=== PATIENT | male | born 1990 | race African-American/Black ===

== ENCOUNTER 2016-07-14 07:20 | Inpatient (IN) | payer MEDICAID ==
[2016-07-14] VITALS (10 sets, daily range): BP systolic 98–179; BP diastolic 56–80; PULSE 90–164; RESP 16–20; TEMP 97.8–100.4; O2SAT 95–100
[~2016-07-14] VITALS: Ht 170.2 cm; Wt 70.5 kg
[~2016-07-14 07:20] MED LIST: ALTA5CAP3 GT; ASPI81 CHEW; BACL10TA GT; BISA10SU8 PR; BUDE.5I NEB; CALTTAB GT; CLIN150 GT; DOCU50SY2 GT; GLYC1TAB17 GT; JEVILIQ10 G-TUBE; LEVA500T G-TUBE; LEVE500S GT; MAGN30S PO; POLY99.0 EACH EYE; PROT40TA GT; Z.0.OXYGEN INH
[2016-07-14] MEDS ORDERED: PIPERACIL-TAZO 4.5 GM PREMIX 100 ML IV STA (07:40)
[2016-07-14] MEDS ORDERED: VANCOMYCIN INJ 1,000 MG in SODIUM CHLOR 0.9% 250 ML INJ 250 ML IV STA (07:40)
[2016-07-14] MEDS ORDERED: SODIUM CHLORID 0.9% 500 ML INJ 500 ML IV ONE ×2 (07:45→15:00)
--- NOTE | 2016-07-14 08:00 | PD ---
HPI Chief Complaint: Fever Time Seen by Provider: 07:36 Travel History International Travel<30 days: No Contact w/Intl Traveler<30days: No Traveled to known affect area: No History of Present Illness HPI 25-year-old male from nursing care facility with history of traumatic brain injury previously, nonverbal, contracted, here because facility states that he is having fevers of 102. He is not able to give me any further history. Family is not in the room to give me any further history. Modifying Factors: None Associated Signs & Symptoms: Fevers, patient nonverbal and unable to give further history Risk Factors: Traumatic brain injury history from intermediate PFSH Past Medical History ADHD: Yes Arthritis: No Asthma: No Autoimmune Disease: No Anxiety: No Depression: No Heart Rhythm Problems: No Cancer: No Cardiovascular Problems: No High Cholesterol: No Chemotherapy: No Chest Pain: No Congestive Heart Failure: No COPD: No Cerebrovascular Accident: No Developmental Delay: No Diabetes: No Diminished Hearing: No Endocrine: No Gastrointestinal Disorders: Yes (CONSTIPATION) GERD: Yes Genitourinary: No Hiatal Hernia: No Hypertension: Yes Immune Disorder: No Kidney Stones: No Musculoskeletal: Yes (osteoporosis, muscle spasm ) Neurologic: Yes (convulsions) Psychiatric: No Respiratory: No Immunizations Current: Yes Migraines: No Radiation Therapy: No Renal Failure: No Seizures: Yes Sickle Cell Disease: No Sleep Apnea: No Thyroid Disease: No Ulcer: No Past Surgical History Abdominal Surgery: Yes (PEG PLACEMENT) Appendectomy: No Cardiac Surgery: No Cholecystectomy: No Ear Surgery: No Endocrine Surgery: No Eye Surgery: No Genitourinary Surgery: No Gynecologic Surgery: No Neurologic Surgery: Yes (craniotomy ) Oral Surgery: No Thoracic Surgery: No Other Surgery: Yes (l pinky finger) Social History Alcohol Use: No Tobacco Use: No Substance Use: No Allergies-Medications (Allergen,Severity, Reaction): Coded Allergies: No Known Allergies (Verified , 07/14/16) Reported Meds & Prescriptions Reported Meds & Active Scripts Active Reported Milk of Magnesia Liq (Magnesium Hydroxide) 400 Mg/5 Ml Susp 30 Ml G-TUBE DAILY PRN Caltrate 600+D Soft Chews (Calcium Carbonate-Cholecalciferol) 600-800 Mg-Unit Chew 1 Tab G-TUBE DAILY Dulcolax Supp (Bisacodyl) 10 Mg Supp 10 Mg RECTAL HS PRN Artificial Tears Opth Drops (Polyvinyl Alcohol) 1.4% Soln 1 Drop EACH EYE QID PRN Glycopyrrolate 1 Mg Tab 1 Mg G-TUBE Q8HR [place] (Hydrocodone-Acetaminophen) 10-325 Mg Tab 1 Tab G-TUBE Q4H PRN Aspirin 81 Mg Chew 81 Mg G-TUBE DAILY Polyethylene Glycol 3350 Powder (Polyethylene Glycol) 17 Gm Pow 17 Gm G-TUBE HS Levetiracetam Liq (Levetiracetam) 500 Mg/5 Ml Soln 200 Mg G-TUBE TID Duoneb (Ipratropium-Albuterol Neb) 0.5-2.5 Mg/3 Ml Neb 1 Nebule INH Q4HR NEB Flexeril (Cyclobenzaprine HCl) 10 Mg Tab 10 Mg G-TUBE TID Omeprazole 20 Mg Cap 20 Mg G-TUBE DAILY Review of Systems ROS Limitations: Clinical Condition, Speech Impaired Physical Exam Narrative GENERAL: Nonverbal and contracted young -German male patient not a current distress. Awake, not oriented. SKIN: Focused skin assessment warm/dry. HEAD: Atraumatic. Normocephalic. EYES: Pupils equal and round. No scleral icterus. No injection or drainage. ENT: No nasal bleeding or discharge. Mucous membranes pink and moist. NECK: Trachea midline. No JVD. CARDIOVASCULAR: Fast and regular rhythm. No murmur appreciated. RESPIRATORY: No accessory muscle use. Clear to auscultation. Breath sounds equal bilaterally. GASTROINTESTINAL: Abdomen soft, non-tender, nondistended. Hepatic and splenic margins not palpable. MUSCULOSKELETAL: No obvious deformities. No clubbing. No cyanosis. No edema. NEUROLOGICAL: Awake and nonverbal. Contracted. Unable to follow commands, exam limited. PSYCHIATRIC: Nonverbal, unable to therapeutic sales specialist or have insight on process. Data Data Last Documented VS Vital Signs Date Time Temp Pulse Resp B/P Pulse Ox O2 Delivery O2 Flow Rate FiO2 07/14/16 07:41 20 97 Room Air 07/14/16 07:41 2 07/14/16 07:34 162 07/14/16 07:30 100.4 179/80 Orders Electrocardiogram (07/14/16 ) Complete Blood Count With Diff (07/14/16 07:37) Comprehensive Metabolic Panel (07/14/16 07:37) Lactic Acid Sepsis Protocol (07/14/16 07:37) Urinalysis - C+S If Indicated (07/14/16 07:37) Blood Culture (07/14/16 07:37) Chest, Single Ap (07/14/16 07:37) Blood Glucose (07/14/16 07:37) Ecg Monitoring (07/14/16 07:37) Iv Access Insert/Monitor (07/14/16 07:37) Oximetry (07/14/16 07:37) Oxygen Administration (07/14/16 07:37) Vancomycin Inj (Vancomycin Inj) (07/14/16 07:40) Piperacil-Tazo 4.5 Gm Premix (Zosyn 4.5 (07/14/16 07:40) Sodium Chlorid 0.9% 500 Ml Inj (Ns 500 M (07/14/16 07:45) Urinary Catheter Insert/Apply (07/14/16 07:40) Us Abdomen Gallbladder (07/14/16 09:09) Urine Culture (07/14/16 09:10) Influenzae A/B Antigen (07/14/16 10:26) Labs Laboratory Tests Test 07/14/16 07/14/16 08:00 09:10 White Blood Count 6.2 TH/MM3 Red Blood Count 4.73 MIL/MM3 Hemoglobin 15.0 GM/DL Hematocrit 45.0 % Mean Corpuscular Volume 95.1 FL Mean Corpuscular Hemoglobin 31.6 PG Mean Corpuscular Hemoglobin 33.3 % Concent Red Cell Distribution Width 12.5 % Platelet Count 263 TH/MM3 Mean Platelet Volume 9.5 FL Neutrophils (%) (Auto) 49.8 % Lymphocytes (%) (Auto) 37.8 % Monocytes (%) (Auto) 8.8 % Eosinophils (%) (Auto) 3.2 % Basophils (%) (Auto) 0.4 % Neutrophils # (Auto) 3.1 TH/MM3 Lymphocytes # (Auto) 2.3 TH/MM3 Monocytes # (Auto) 0.5 TH/MM3 Eosinophils # (Auto) 0.2 TH/MM3 Basophils # (Auto) 0.0 TH/MM3 CBC Comment DIFF FINAL Differential Comment Sodium Level 144 MEQ/L Potassium Level 5.7 MEQ/L Chloride Level 107 MEQ/L Carbon Dioxide Level 27.0 MEQ/L Anion Gap 10 MEQ/L Blood Urea Nitrogen 14 MG/DL Creatinine 1.10 MG/DL Estimat Glomerular Filtration 100 ML/MIN Rate Random Glucose 85 MG/DL Lactic Acid Level 8.8 mmol/L Calcium Level 10.4 MG/DL Total Bilirubin 0.4 MG/DL Aspartate Amino Transf 114 U/L (AST/SGOT) Alanine Aminotransferase 215 U/L (ALT/SGPT) Alkaline Phosphatase 167 U/L Total Protein 9.2 GM/DL Albumin 4.0 GM/DL Urine Color YELLOW Urine Turbidity HAZY Urine pH 5.5 Urine Specific [place] 1.036 Urine Protein 30 mg/dL Urine Glucose (UA) NEG mg/dL Urine Ketones TRACE mg/dL Urine Occult Blood MOD Urine Nitrite NEG Urine Bilirubin NEG Urine Urobilinogen 2.0 MG/DL Urine Leukocyte Esterase NEG Urine RBC 94 /hpf Urine WBC 5 /hpf Urine Squamous Epithelial 4 /hpf Cells Urine Amorphous Sediment OCC Urine Bacteria FEW /hpf Urine Hyaline Casts 10 /lpf Urine Mucus FEW /lpf Microscopic Urinalysis Comment CATH-CULTURE IND MDM Medical Decision Making Medical Screen Exam Complete: Yes Emergency Medical Condition: Yes Medical Record Reviewed: Yes Interpretation(s) Laboratory Tests Test 07/14/16 07/14/16 08:00 09:10 Monocytes (%) (Auto) 8.8 % (0.0-8.0) Potassium Level 5.7 MEQ/L (3.5-5.1) Lactic Acid Level 8.8 mmol/L (0.4-2.0) Calcium Level 10.4 MG/DL (8.5-10.1) Aspartate Amino Transf 114 U/L (15-37) (AST/SGOT) Alanine Aminotransferase 215 U/L (12-78) (ALT/SGPT) Alkaline Phosphatase 167 U/L (45-117) Total Protein 9.2 GM/DL (6.4-8.2) Urine Turbidity HAZY (CLEAR) Urine Specific [place] 1.036 (1.002-1.035) Urine Protein 30 mg/dL (NEG-TRACE) Urine Ketones TRACE mg/dL (NEG) Urine Occult Blood MOD (NEG) Urine RBC 94 /hpf (0-3) Urine Bacteria FEW /hpf (NONE) Urine Mucus FEW /lpf (OCC) Last 24 hours Impressions Gall Bladder Ultrasound 07/14/16 0909 Signed Impressions: Service Date/Time: Thursday, July 14, 2016 09:33 - CONCLUSION: Negative for gallstones. Raman Marshall MD FACR Chest X-Ray 4/1/17 0737 Signed Impressions: Service Date/Time: Thursday, July 14, 2016 07:49 - CONCLUSION: Negative for infiltrate. Raman Marshall MD FACR Abdomen/Pelvis CT 07/14/16 0000 Signed Impressions: Service Date/Time: Thursday, July 14, 2016 15:46 - CONCLUSION: 1. Patchy left lower lung infiltrates. 2. PEG tube in good position. 3. Moderate severity constipation. 4. No evidence of abscess. Jose Velasquez MD Differential Diagnosis Feverevaluation for sepsis versus metabolic issues versus pneumonia versus UTI Narrative Course Laboratories is significant for lactate level elevations, concerning for underlying sepsis. IV antibiotics initiated after cultures are drawn. Patient' s symptoms are consistent with pneumonia. His chest x-ray did not show obvious issues but CAT scanshows a left lower lobe infiltrate. UA not show significant UTI. At this point, case was discussed with Dr. Hugo for admission. Sepsis Criteria SIRS Criteria (2 or more): Heart rate over 90 Sepsis Criteria (SIRS+source): Infect source susp/known Severe Sepsis (+one): Lactate >2 Diagnosis Primary Impression: Sepsis Additional Impression: Pneumonia Admitting Information Admitting Physician Requests: Admit Kajal Yusuf MD Jul 14, 2016 08:00
--- NOTE | 2016-07-14 08:18 | RADRPT ---
EXAM DATE/TIME: 07/14/2016 07:49 [facility] COMPARISON: CT PULMONARY ANGIOGRAM, January 20, 2016, 9:05. CHEST SINGLE AP, January 20, 2016, 8:06. INDICATIONS : Fever. MEDICAL HISTORY : Hypertension. SURGICAL HISTORY : None. ENCOUNTER: Initial ACUITY: 2 days PAIN SCORE: Non-responsive. LOCATION: chest FINDINGS: The lungs are under aerated but clear. The cardiac silhouette is prominent.. The portion of the bony skeleton visualized is unremarkable. CONCLUSION: Negative for infiltrate. Raman Marshall MD FACR on July 14, 2016 at 8:15 Board Certified Radiologist. This report was verified electronically.
[2016-07-14 08:31] LABS: AUTOMATED NEUTROPHIL # 3.1 TH/MM3 (1.8-7.7); BASOPHIL % 0.4 % (0.0-2.0); EOSINOPHIL # 0.2 TH/MM3 (0-0.4); EOSINOPHIL % 3.2 % (0.0-4.0); HEMO FLAGS DIFF FINAL; LYMPH % 37.8 % (9.0-44.0); LYMPHOCYTE # 2.3 TH/MM3 (1.0-4.8); MEAN CELL VOLUME 95.1 FL (80.0-100.0); MEAN CORPUSCULAR HEMOGLOBIN 31.6 PG (27.0-34.0); MEAN CORPUSCULAR HGB CONC 33.3 % (32.0-36.0); MONO % 8.8 % (0.0-8.0); NEUT % 49.8 % (16.0-70.0); PLATELET COUNT 263 TH/MM3 (150-450); RED BLOOD COUNT 4.73 MIL/MM3 (4.50-5.90); RED CELL DISTRIBUTION WIDTH 12.5 % (11.6-17.2); WHITE BLOOD COUNT 6.2 TH/MM3 (4.0-11.0)
[2016-07-14] MEDS ORDERED: ASPI81CH G-TUBE (08:36)
[2016-07-14] MEDS ORDERED: LEVE100S G-TUBE (08:36)
[2016-07-14] MEDS ORDERED: IPRASOL INH (08:36)
[2016-07-14] MEDS ORDERED: CYCL1TAB29 G-TUBE (08:36)
[2016-07-14] MEDS ORDERED: GLYC1TAB17 G-TUBE (08:36)
[2016-07-14] MEDS ORDERED: MILKSUS G-TUBE (08:36)
[2016-07-14] MEDS ORDERED: CALTCHW4 G-TUBE (08:36)
[2016-07-14] MEDS ORDERED: POLY17S G-TUBE (08:36)
[2016-07-14] MEDS ORDERED: POLY99.0 EACH EYE (08:36)
[2016-07-14] MEDS ORDERED: OMEP20CA2 G-TUBE (08:36)
[2016-07-14] MEDS ORDERED: HYDR-3366 G-TUBE (08:36)
[2016-07-14] MEDS ORDERED: DULC10SU3 RECTAL (08:36)
[2016-07-14 08:54] LABS: ALKALINE PHOSPHATASE 167 U/L (45-117); TOTAL BILIRUBIN ADULT 0.4 MG/DL (0.2-1.0)
[2016-07-14 09:07] LABS: ALT (GPT) 215 U/L (12-78); ANION GAP 10 MEQ/L (5-15); AST (GOT) 114 U/L (15-37); BLOOD UREA NITROGEN 14 MG/DL (7-18); CHLORIDE 107 MEQ/L (98-107); GLOMERULAR FILTRATION RATE 100 ML/MIN (>89); SODIUM (NA) 144 MEQ/L (136-145)
[2016-07-14 09:08] LABS: POTASSIUM 5.7 MEQ/L (3.5-5.1)
[2016-07-14 09:32] LABS: BACTERIA, URINE FEW /hpf; BLOOD, URINE MOD (NEG); GLUCOSE,URINE NEG (NEG); HYALINE CAST, URINE 10 /lpf (RARE); KETONE, URINE TRACE mg/dL (NEG); MUCUS URINE FEW /lpf (OCC); NITRITE,URINE NEG (NEG); PH, URINE 5.5 (5.0-8.5); SQUAMOUS EPITHELIAL CELL URINE 4 /hpf (0-5); URINE COLOR YELLOW (YELLW/STRAW)
[2016-07-14 10:02] LABS: COMMENT (UR) CATH-CULTURE IND; CULTURE IF INDICATED CATH CULTURE IND
--- NOTE | 2016-07-14 10:20 | RADRPT ---
EXAM DATE/TIME: 07/14/2016 09:33 [facility] COMPARISON: US ABDOMEN - GALLBLADDER, May 04, 2013, 11:33. INDICATIONS : Right upper quadrant pain. MEDICAL HISTORY : Hypertension. Dyspnea. Seizures. Head trauma. SURGICAL HISTORY : Craniotomy. Surgery on pinky finger. ENCOUNTER: Subsequent ACUITY: 1 day PAIN SCORE: Nonresponsive. LOCATION: Right upper quadrant MEASUREMENTS: LIVER: 11.8 cm length COMMON DUCT: 3 mm RIGHT KIDNEY: 9.7 x 5.0 x 3.7 cm FINDINGS: Exam is limited. I do not see evidence for gallstones. Previous study on 05/04/13 was negative as we ll. CONCLUSION: Negative for gallstones. Raman Marshall MD FACR on July 14, 2016 at 10:18 Board Certified Radiologist. This report was verified electronically.
[2016-07-14 10:22] LABS: LACTIC ACID GHOST NOT REPORTABLE
[2016-07-14] MEDS ORDERED: MORPHINE SULFATE 4 MG/ML INJ IV PRN (11:15)
[2016-07-14] MEDS ORDERED: ACETAMINOPHEN/HYDROcodone 325 MG/5 MG TAB PO PRN (11:15)
[2016-07-14] MEDS ORDERED: SODIUM CHLORIDE 0.9% FLUSH 10 ML FLUSH IV FLUSH PRN (11:15)
[2016-07-14] MEDS ORDERED: ONDANSETRON HCL 4 MG/2 ML VIAL IVP PRN (11:15)
[2016-07-14] MEDS ORDERED: NALOXONE HCL 0.4 MG/ML AMP IV PRN (11:15)
[2016-07-14] MEDS ORDERED: DIATRIZOATE MEGLUM/DIATRIZOATE SOD 9 ML CUP PO ONE (12:00)
[2016-07-14] MEDS: SODIUM CHLOR 0.9% 1000 ML INJ 1,000 ML IV SCH ×2 (12:13→17:22)
[2016-07-14] MEDS: HEPARIN SODIUM - SQ 10,000 UNITS/ML VIAL SQ SCH ×2 (12:13→21:36)
--- NOTE | 2016-07-14 15:05 | HHI.HP ---
HPI Service [facility] Primary Care Physician Marcio Archibald MD Admission Diagnosis sepsis/elevated LFTs Diagnoses: Chief Complaint: Fever Travel History International Travel<30 Days: No Contact w/Intl Traveler <30 Da: No Traveled to Known Affected Are: No History of Present Illness 25 years old male with history of brain injury atraumatic food is a resident at the nursing facility, brought today from the facility with a history of fever 102. Patient is nonverbal he does not provide any history he has upper or lower extremity flexure. He is open eyes. In ED he was found to have a fever of 100.4 and a lactic acidosis of 8.8, as well as increase LFT and alkaline phosphatase, chest x-ray and urinalysis were unremarkable as well as gallbladder ultrasound, no nausea vomiting no diarrhea as per the report to the ED from the nursing facility. She has a PEG tube placed. He was started with a dose of Vanco and Zosyn. Review of Systems ROS Limitations: Clinical Condition (patient has), Poor Historian Constitutional: COMPLAINS OF: Fever Patient has traumatic brain injury Past Family Social History Past Medical History Traumatic brain injury Constipation Osteoporosis PEG tube Allergies: Coded Allergies: No Known Allergies (Verified , 07/14/16) Family History Unobtainable Social History Unobtainable Physical Exam Vital Signs Vital Signs Date Time Temp Pulse Resp B/P Pulse Ox O2 Delivery O2 Flow Rate FiO2 07/14/16 12:25 98.7 07/14/16 12:16 112 20 98/56 99 Nasal Cannula 2 07/14/16 07:41 20 97 Room Air 07/14/16 07:41 99 Nasal Cannula 2 07/14/16 07:34 162 20 95 Room Air 07/14/16 07:30 100.4 164 20 179/80 95 Physical Exam - - GENERAL: This is a frail 25 years old patient with traumatic brain injury and upper lower extremity contractions SKIN: No rashes, warm and dry HEAD: Atraumatic. Normocephalic. EYES: Pupils equal round and reactive. Extraocular motions intact. No scleral icterus. ENT: Nose without bleeding, or drainage, Airway patent. NECK: Trachea midline. Supple CARDIOVASCULAR: Regular rate and rhythm without murmurs, gallops, or rubs. RESPIRATORY: Fair air entry bilaterally. No wheezes, rales, or rhonchi. GASTROINTESTINAL: Abdomen soft, non-tender, nondistended. Positive bowel sounds , PEG tube in place MUSCULOSKELETAL: Extremities without clubbing, cyanosis, or edema. Pedal pulses appreciated NEUROLOGICAL: Open eyes, doesn't move extremities which has tractions, nonverbal Laboratory Laboratory Tests Test 07/14/16 07/14/16 07/14/16 08:00 09:10 12:50 White Blood Count 6.2 Red Blood Count 4.73 Hemoglobin 15.0 Hematocrit 45.0 Mean Corpuscular Volume 95.1 Mean Corpuscular Hemoglobin 31.6 Mean Corpuscular Hemoglobin 33.3 Concent Red Cell Distribution Width 12.5 Platelet Count 263 Mean Platelet Volume 9.5 Neutrophils (%) (Auto) 49.8 Lymphocytes (%) (Auto) 37.8 Monocytes (%) (Auto) 8.8 Eosinophils (%) (Auto) 3.2 Basophils (%) (Auto) 0.4 Neutrophils # (Auto) 3.1 Lymphocytes # (Auto) 2.3 Monocytes # (Auto) 0.5 Eosinophils # (Auto) 0.2 Basophils # (Auto) 0.0 CBC Comment DIFF FINAL Differential Comment Sodium Level 144 Potassium Level 5.7 Chloride Level 107 Carbon Dioxide Level 27.0 Anion Gap 10 Blood Urea Nitrogen 14 Creatinine 1.10 Estimat Glomerular Filtration 100 Rate Random Glucose 85 Lactic Acid Level 8.8 1.6 Calcium Level 10.4 Total Bilirubin 0.4 Aspartate Amino Transf 114 (AST/SGOT) Alanine Aminotransferase 215 (ALT/SGPT) Alkaline Phosphatase 167 Total Protein 9.2 Albumin 4.0 Urine Color YELLOW Urine Turbidity HAZY Urine pH 5.5 Urine Specific [place] 1.036 Urine Protein 30 Urine Glucose (UA) NEG Urine Ketones TRACE Urine Occult Blood MOD Urine Nitrite NEG Urine Bilirubin NEG Urine Urobilinogen 2.0 Urine Leukocyte Esterase NEG Urine RBC 94 Urine WBC 5 Urine Squamous Epithelial 4 Cells Urine Amorphous Sediment OCC Urine Bacteria FEW Urine Hyaline Casts 10 Urine Mucus FEW Microscopic Urinalysis Comment CATH-CULTURE IND Date/Time Procedure Status Source Growth 07/14/16 10:35 Influenza Types A,B Antigen (NASRA) - Final Complete Nasal Washing NEGATIVE FOR FLU A AND B ANTIGEN.... 4/1/17 09:10 Urine Culture Received Urine Catheterized Urine Pending 07/14/16 08:00 Aerobic Blood Culture Received Blood Peripheral Pending 07/14/16 08:00 Anaerobic Blood Culture Received Blood Peripheral Pending Result Diagram: 07/14/16 0800 07/14/16 0800 Imaging Last Impressions Gall Bladder Ultrasound 07/14/16 0909 Signed Impressions: Service Date/Time: Thursday, July 14, 2016 09:33 - CONCLUSION: Negative for gallstones. Raman Marshall MD FACR Chest X-Ray 07/14/16 0737 Signed Impressions: Service Date/Time: Thursday, July 14, 2016 07:49 - CONCLUSION: Negative for infiltrate. Raman Marshall MD FACR Assessment and Plan Assessment and Plan 25 years old male with history of traumatic brain injury came with Febrile illness of unknown origin with tachycardia and lactic acidosis rule out sepsis Lactic acidosis 8.8 Hyperkalemia and hypercalcemia Increased liver enzymes ALP AST along with alkaline phosphatase DVT prophylaxis Plan: Admit to inpatient No clear source of infection, PEG tube site looks clean no drainage Fever return or worsening lactic acidosis we will Consult ID Started on prophylactic antibiotics Zosyn and Vanco in ED we will continue Blood culture sent will follow result Repeat lactic acid BMP later this evening and in a.m. Continue iv fluid patient received 2 L almost in ED Discussed Condition With Patient in ED physician Physician Certification 2 Midnight Certification Type: Admission for Inpatient Services Order for Inpatient Services The services are ordered in accordance with Medicare regulations or non- Medicare payer requirements, as applicable. In the case of services not specified as inpatient-only, they are appropriately provided as inpatient services in accordance with the 2-midnight benchmark. Estimated LOS (days): 2 days is the estimated time the patient will need to remain in the hospital, assuming treatment plan goals are met and no additional complications. Post-Hospital Plan: Not yet determined Cornelius Hugo MD Jul 14, 2016 15:05
[2016-07-14] MEDS ORDERED: IOHEXOL 350 MG/ML 10 ML VIAL (for RAD DIAG) IV ONE (16:03)
--- NOTE | 2016-07-14 16:45 | RADRPT ---
EXAM DATE/TIME: 07/14/2016 15:46 [facility] COMPARISON: CT ABDOMEN & PELVIS W CONTRAST, January 20, 2016, 9:05. INDICATIONS : Fever, sepsis. IV CONTRAST: 97 cc Omnipaque 350 (iohexol) IV ORAL CONTRAST: Prescribed oral contrast ingested. RADIATION DOSE: 14.64 CTDIvol (mGy) MEDICAL HISTORY : Hypertension. SURGICAL HISTORY : Craniotomy. PEG tube. ENCOUNTER: Initial ACUITY: 3 days PAIN SCALE: Non-responsive LOCATION: lower quadrant TECHNIQUE: Volumetric scanning of the abdomen and pelvis was performed. Using automated exposure control and ad justment of the mA and/or kV according to patient size, radiation dose was kept as low as reasonably achievable to obtain optimal diagnostic quality images. FINDINGS: Examination is performed with patient's hands over the mid abdomen which creates some streak artifact in the study is still of diagnostic quality. Percutaneous gastric tube is in place with the balloon seen within the lumen of the stomach. The liver, spleen, kidneys, adrenal glands, aorta, and retrop eritoneal are grossly intact. There is a prominent amount of stool in the rectum and sigmoid and sca ttered stool throughout the remainder of the colon. Oral contrast passes through to the distal small bowel. No dilated loops of small bowel seen. Donald catheter is present within the urinary bladder. No evidence of free fluid. No focal opacities to suggest intra-abdominal abscess. Patchy areas of infiltrate in the left lower lung. Moderate curvature of the lumbar spine convex towards the left CONCLUSION: 1. Patchy left lower lung infiltrates. 2. PEG tube in good position. 3. Moderate severity constipation. 4. No evidence of abscess. Jose Velasquez MD on July 14, 2016 at 16:40 Board Certified Radiologist. This report was verified electronically.
[2016-07-14 20:51] LABS: AUTOMATED NEUTROPHIL # 2.7 TH/MM3 (1.8-7.7); BASOPHIL % 0.5 % (0.0-2.0); EOSINOPHIL # 0.2 TH/MM3 (0-0.4); EOSINOPHIL % 2.5 % (0.0-4.0); HEMATOCRIT 39.4 % (39.0-51.0); HEMO FLAGS DIFF FINAL; LYMPH % 40.7 % (9.0-44.0); LYMPHOCYTE # 2.5 TH/MM3 (1.0-4.8); MEAN CELL VOLUME 98.3 FL (80.0-100.0); MEAN CORPUSCULAR HEMOGLOBIN 32.3 PG (27.0-34.0); MEAN CORPUSCULAR HGB CONC 32.8 % (32.0-36.0); MONO % 12.1 % (0.0-8.0); NEUT % 44.2 % (16.0-70.0); PLATELET COUNT 169 TH/MM3 (150-450); RED BLOOD COUNT 4.01 MIL/MM3 (4.50-5.90); RED CELL DISTRIBUTION WIDTH 12.8 % (11.6-17.2); WHITE BLOOD COUNT 6.1 TH/MM3 (4.0-11.0)
[2016-07-14] MEDS: SODIUM CHLORIDE 0.9% FLUSH 10 ML FLUSH IV FLUSH SCH (21:00)
[2016-07-14 21:04] LABS: BICARBONATE 27.4 MEQ/L (21.0-32.0); INDIRECT BILIRUBIN 0.4 MG/DL (0.0-0.8); TOTAL BILIRUBIN ADULT 0.5 MG/DL (0.2-1.0)
[2016-07-14 21:05] LABS: POTASSIUM 4.4 MEQ/L (3.5-5.1)
[2016-07-14] MEDS ORDERED: CHLORHEXIDINE GLUCONATE 2 % 1 PACK (2 CLOTHS)(extra cloths) TOPICAL PRN (21:45)
[2016-07-15] VITALS (10 sets, daily range): BP systolic 104–135; BP diastolic 51–70; PULSE 65–99; RESP 12–17; TEMP 97–98.1; O2SAT 95–100
--- NOTE | 2016-07-15 00:11 | EKG ---
Date Performed: 07/14/2016 Time Performed: 07:33:14 PTAGE: 25 years EKG: SUPRAVENTRICULAR TACHYCARDIA ABNORMAL RHYTHM ECG PREVIOUS TRACING : 01/20/2016 08.00 DOCTOR: Nita Bermudez Interpretating Date/Time 07/16/2016 07:18:37
[2016-07-15] MEDS: SODIUM CHLOR 0.9% 1000 ML INJ 1,000 ML IV SCH (03:50)
[2016-07-15] MEDS: CHLORHEXIDINE GLUCONATE 2 % 1 PACK (2 CLOTHS)(taper/protocol) TOPICAL SCH (04:00)
[2016-07-15] MEDS: HEPARIN SODIUM - SQ 10,000 UNITS/ML VIAL SQ SCH ×3 (05:55→21:51)
[2016-07-15] MEDS: SODIUM CHLORIDE 0.9% FLUSH 10 ML FLUSH IV FLUSH SCH ×2 (08:46→21:51)
[2016-07-15] MEDS ORDERED: BISACODYL 10 MG SUPP RECTAL PRN (09:15)
[2016-07-15] MEDS ORDERED: DEXTROSE 50% IN WATER 50 ML SYRINGE IV ONE (09:15)
[2016-07-15] MEDS ORDERED: ARTIFICIAL TEARS OPTH SOLN 15 ML BTL EACH EYE PRN (09:15)
[2016-07-15] MEDS ORDERED: VANCOMYCIN INJ 1,000 MG in SODIUM CHLOR 0.9% 250 ML INJ 250 ML IV SCH (09:15)
[2016-07-15] MEDS ORDERED: Vancomycin Consult Pharmacy 1 EA OTHER SCH (09:15)
[2016-07-15] MEDS ORDERED: MAGNESIUM HYDROXIDE SUSP 30 ML CUP G-TUBE PRN (09:15)
[2016-07-15] MEDS: LEVOFLOXACIN 750 MG PREMIX INJ 150 ML IV SCH (09:36)
[2016-07-15] MEDS ORDERED: PIPERACIL-TAZO 4.5 GM PREMIX 100 ML IV SCH (11:00)
[2016-07-15] MEDS: levETIRAcetam 500 MG/5 ML UDC G-TUBE SCH ×2 (11:22→21:51)
[2016-07-15] MEDS: LACTULOSE SYRUP 20 GM/30 ML CUP PO SCH (11:22)
[2016-07-15] MEDS: CALCIUM/VITAMIN D 250 MG/125 U TAB G-TUBE SCH (11:23)
[2016-07-15] MEDS: CYCLOBENZAPRINE HCL 10 MG TAB G-TUBE SCH ×2 (11:54→17:49)
[2016-07-15 13:27] LABS: AUTOMATED NEUTROPHIL # 2.1 TH/MM3 (1.8-7.7); BASOPHIL % 0.6 % (0.0-2.0); EOSINOPHIL # 0.4 TH/MM3 (0-0.4); EOSINOPHIL % 6.6 % (0.0-4.0); HEMATOCRIT 42.6 % (39.0-51.0); HEMO FLAGS AUTO DIFF; LYMPH % 49.5 % (9.0-44.0); LYMPHOCYTE # 3.1 TH/MM3 (1.0-4.8); MEAN CELL VOLUME 92.7 FL (80.0-100.0); MEAN CORPUSCULAR HGB CONC 34.5 % (32.0-36.0); MONO % 9.3 % (0.0-8.0); PLATELET COUNT 189 TH/MM3 (150-450); RED BLOOD COUNT 4.59 MIL/MM3 (4.50-5.90); WHITE BLOOD COUNT 6.2 TH/MM3 (4.0-11.0)
[2016-07-15 13:41] LABS: INDIRECT BILIRUBIN 0.5 MG/DL (0.0-0.8); TOTAL BILIRUBIN ADULT 0.6 MG/DL (0.2-1.0)
[2016-07-15 13:43] LABS: POTASSIUM 5.3 MEQ/L (3.5-5.1)
[2016-07-15 13:47] LABS: BANDS 1 % (0-6); EOSINOPHILS 6 % (0-4); NEUTROPHIL # MANUAL DIFF 2.5 TH/MM3 (1.8-7.7); POLYS (SEG NEUTROPHILS) 39 % (16-70); WBC DIFF SAMPLE 100
[2016-07-15 13:48] LABS: PLATELET ESTIMATE SMEAR NORMAL (NORMAL); PLATELET MORPHOLOGY NORMAL (NORMAL); SCAN/DIFF FINAL DIFF MANUAL
--- NOTE | 2016-07-15 14:26 | HHI.PR ---
Subjective Remarks I was called by the nurse patient had blood glucose of 63 today, also he had some persistent twitching in his eyes and eyelids without clinical sign of seizure. I came to see the patient he was then fed open eyes nonverbal but he looked better than yesterday, are already give order to resume his Flexeril, patient also on Keppra, so by the time I came the twitching improved already, no fever or chills, CT of the abdomen yesterday was remarkable for severe constipation and left lower lobe infiltrate, however patient doesn't have cough or fever but he has some drooling from his mouth as per the nurse Objective Vitals Vital Signs Date Time Temp Pulse Resp B/P Pulse Ox O2 Delivery O2 Flow Rate FiO2 07/15/16 12:00 88 07/15/16 12:00 98.1 88 12 135/65 100 07/15/16 10:00 87 07/15/16 09:18 95 07/15/16 08:00 65 07/15/16 08:00 97.5 65 12 124/58 100 07/15/16 06:00 81 07/15/16 04:00 74 07/15/16 04:00 97.7 74 17 107/51 98 07/15/16 02:00 99 07/15/16 00:00 88 07/15/16 00:00 97.7 88 13 127/58 99 07/14/16 22:00 95 07/14/16 20:00 97 07/14/16 20:00 98.0 97 16 131/68 100 07/14/16 19:40 97.8 93 16 126/64 100 07/14/16 19:19 100 21 07/14/16 17:23 90 20 128/76 100 Nasal Cannula 2 07/14/16 16:05 99 Nasal Cannula 2.00 I/O 07/14/16 07/14/16 07/14/16 07/15/16 07/15/16 07/15/16 07:00 15:00 23:00 07:00 15:00 23:00 Intake Total 601 ml 791 ml 542 ml Output Total 650 ml 550 ml 850 ml Balance -49 ml 241 ml -308 ml Intake IV Total 601 ml 791 ml 542 ml Output Urine Total 650 ml 550 ml 850 ml # Bowel Movements 0 Result Diagram: 07/15/16 1230 07/15/16 1230 Imaging Last Impressions Gall Bladder Ultrasound 07/14/16 0909 Signed Impressions: Service Date/Time: Thursday, July 14, 2016 09:33 - CONCLUSION: Negative for gallstones. Raman Marshall MD FACR Chest X-Ray 07/14/16 0737 Signed Impressions: Service Date/Time: Thursday, July 14, 2016 07:49 - CONCLUSION: Negative for infiltrate. Raman Marshall MD FACR Abdomen/Pelvis CT 07/14/16 0000 Signed Impressions: Service Date/Time: Thursday, July 14, 2016 15:46 - CONCLUSION: 1. Patchy left lower lung infiltrates. 2. PEG tube in good position. 3. Moderate severity constipation. 4. No evidence of abscess. Jose Velasquez MD Objective Remarks - - GENERAL: This is a frail 25 years old patient with traumatic brain injury and upper lower extremity contractions SKIN: No rashes, warm and dry HEAD: Atraumatic. Normocephalic. EYES: Pupils equal round and reactive. Extraocular motions intact. No scleral icterus. ENT: Nose without bleeding, or drainage, Airway patent. NECK: Trachea midline. Supple CARDIOVASCULAR: Regular rate and rhythm without murmurs, gallops, or rubs. RESPIRATORY: Fair air entry bilaterally. No wheezes, rales, or rhonchi. GASTROINTESTINAL: Abdomen soft, non-tender, nondistended. Positive bowel sounds , PEG tube in place MUSCULOSKELETAL: Extremities without clubbing, cyanosis, or edema. Pedal pulses appreciated NEUROLOGICAL: Open eyes, doesn't move extremities which has tractions, nonverbal A/P Assessment and Plan 25 years old male with history of traumatic brain injury came with Febrile illness of unknown origin with tachycardia and lactic acidosis rule out sepsis no leukocytosis Left lower lobe infiltrate on CT of the abdomen, no clinical sign of pneumonia> > started Levaquin, monitor for any signs of infection Lactic acidosis 8.8 resolved Hypoglycemia episodes PG [address] abdomen Hyperkalemia and hypercalcemia improved Increased liver enzymes ALP AST along with alkaline phosphatase>> trending down DVT prophylaxis Plan: Left lower lobe infiltrate on CT abdomen>> started Levaquin, monitor D50 with starting hypoglycemic protocol, start tube feed, DC iv fluid Continue laxative regimen, and we'll start on lactulose until getting a bowel movement for severe constipation showed on CT abdomen PEG tube site looks clean no drainage Fever return or worsening lactic acidosis Started on prophylactic antibiotics Zosyn and Vanco in ED we will continue Blood culture sent will follow result DC iv fluid Discharge Planning In one or 2 days of continue to be stable Cornelius Hugo MD Jul 15, 2016 14:26
[2016-07-15] MEDS: POLYETHYLENE GLYCOL 17 GM PKG G-TUBE SCH (21:51)
[2016-07-16] VITALS (12 sets, daily range): BP systolic 99–145; BP diastolic 57–72; PULSE 93–168; RESP 16–22; TEMP 96.5–104.2; O2SAT 94–100
[2016-07-16] MEDS: ACETAMINOPHEN/HYDROcodone 325 MG/10 MG TAB G-TUBE PRN ×2 (01:31→04:45)
[2016-07-16] MEDS ORDERED: IBUPROFEN 400 MG TAB PO ONE (01:45)
[2016-07-16] MEDS ORDERED: IBUPROFEN SUSP 100 MG/5 ML UDC PO ONE (02:00)
[2016-07-16] MEDS ORDERED: VANCOMYCIN INJ 1,000 MG in SODIUM CHLOR 0.9% 250 ML INJ 250 ML IV ONE (03:30)
[2016-07-16] MEDS ORDERED: METOPROLOL TARTRATE 25 MG TAB PO ONE (03:30)
[2016-07-16] MEDS: HEPARIN SODIUM - SQ 10,000 UNITS/ML VIAL SQ SCH ×3 (03:47→22:14)
[2016-07-16] MEDS: CHLORHEXIDINE GLUCONATE 2 % 1 PACK (2 CLOTHS)(taper/protocol) TOPICAL SCH (04:00)
[2016-07-16] MEDS ORDERED: PIPERACIL-TAZO 3.375 GM PREMIX 50 ML IV SCH (04:00)
[2016-07-16] MEDS ORDERED: PIPERACIL-TAZO 4.5 GM PREMIX 100 ML IV ONE (04:30)
[2016-07-16] MEDS ORDERED: SODIUM CHLOR 0.9% 1000 ML INJ 1,000 ML IV ONE (04:45)
--- NOTE | 2016-07-16 06:04 | RADRPT ---
EXAM DATE/TIME: 07/16/2016 04:00 [facility] COMPARISON: CHEST SINGLE AP, July 14, 2016, 7:49. INDICATIONS : Pneumonia. MEDICAL HISTORY : Hypertension. Sepsis. SURGICAL HISTORY : Craniotomy. ENCOUNTER: Subsequent ACUITY: 4 - 6 days PAIN SCORE: Non-responsive. LOCATION: Bilateral chest FINDINGS: A single view of the chest demonstrates the lungs to be symmetrically aerated without evidence of mas s, infiltrate or effusion. The cardiomediastinal contours are unremarkable. Osseous structures are intact. CONCLUSION: No acute disease. Jose Alba Jr., MD on July 16, 2016 at 6:03 Board Certified Radiologist. This report was verified electronically.
[2016-07-16 06:25] LABS: AUTOMATED NEUTROPHIL # 2.5 TH/MM3 (1.8-7.7); BASOPHIL % 0.6 % (0.0-2.0); EOSINOPHIL # 0.2 TH/MM3 (0-0.4); EOSINOPHIL % 2.5 % (0.0-4.0); HEMATOCRIT 39.8 % (39.0-51.0); HEMO FLAGS DIFF FINAL; LYMPH % 47.2 % (9.0-44.0); LYMPHOCYTE # 3.1 TH/MM3 (1.0-4.8); MEAN CELL VOLUME 93.5 FL (80.0-100.0); MEAN CORPUSCULAR HEMOGLOBIN 32.3 PG (27.0-34.0); MEAN CORPUSCULAR HGB CONC 34.6 % (32.0-36.0); MONO % 10.7 % (0.0-8.0); PLATELET COUNT 199 TH/MM3 (150-450); RED BLOOD COUNT 4.26 MIL/MM3 (4.50-5.90); RED CELL DISTRIBUTION WIDTH 12.7 % (11.6-17.2); WHITE BLOOD COUNT 6.5 TH/MM3 (4.0-11.0)
[2016-07-16 06:57] LABS: BICARBONATE 28.6 MEQ/L (21.0-32.0); INDIRECT BILIRUBIN 0.3 MG/DL (0.0-0.8); TOTAL BILIRUBIN ADULT 0.4 MG/DL (0.2-1.0)
[2016-07-16 06:59] LABS: POTASSIUM 4.1 MEQ/L (3.5-5.1)
[2016-07-16] MEDS: CYCLOBENZAPRINE HCL 10 MG TAB G-TUBE SCH ×3 (08:42→17:19)
[2016-07-16] MEDS: LACTULOSE SYRUP 20 GM/30 ML CUP PO SCH (08:42)
[2016-07-16] MEDS: levETIRAcetam 500 MG/5 ML UDC G-TUBE SCH ×3 (08:42→17:19)
[2016-07-16] MEDS: ASPIRIN 81 MG CHEW TAB G-TUBE SCH (08:42)
[2016-07-16] MEDS: CALCIUM/VITAMIN D 250 MG/125 U TAB G-TUBE SCH (08:42)
[2016-07-16] MEDS: SODIUM CHLORIDE 0.9% FLUSH 10 ML FLUSH IV FLUSH SCH ×2 (08:43→22:14)
[2016-07-16] MEDS ORDERED: PANTOPRAZOLE SOD 20 MG DELAYED RELEASE TAB PO SCH (09:00)
[2016-07-16] MEDS: LEVOFLOXACIN 750 MG PREMIX INJ 150 ML IV SCH (10:09)
--- NOTE | 2016-07-16 13:01 | HHI.PR ---
Subjective Remarks Patient sleeping, just had a lateral lower extremity DVT, talked to the radiation technician's data told me there was no obvious DVT Last night patient had elevated temperature max 104 at 4:00 AM, no obvious clinical signs of pneumonia No cough or breathing secretions, patient was given ibuprofen and dose of Zosyn and vancomycin overnight Objective Vitals Vital Signs Date Time Temp Pulse Resp B/P Pulse Ox O2 Delivery O2 Flow Rate FiO2 07/16/16 07:50 98.3 112 16 114/58 94 07/16/16 06:57 99.7 07/16/16 05:45 18 07/16/16 04:35 104.2 07/16/16 04:00 140 22 129/59 96 07/16/16 03:10 22 145/72 07/16/16 03:08 101.8 164 07/16/16 03:08 24 07/16/16 01:27 168 07/16/16 00:00 101.0 160 19 124/66 96 07/15/16 20:00 97.0 82 14 109/62 99 07/15/16 15:00 97.6 77 14 104/70 99 I/O 07/15/16 07/15/16 07/15/16 07/16/16 07/16/16 07/16/16 07:00 15:00 23:00 07:00 15:00 23:00 Intake Total 791 ml 542 ml 0 ml 940 ml Output Total 550 ml 850 ml 1000 ml 400 ml Balance 241 ml -308 ml -1000 ml 540 ml Intake Oral 0 ml 0 ml IV Total 791 ml 542 ml Tube Feeding 440 ml Other 500 ml Output Urine Total 550 ml 850 ml 1000 ml 400 ml # Bowel Movements 0 0 1 Result Diagram: 07/16/16 0616 07/16/16 0616 Objective Remarks - - GENERAL: This is a frail 25 years old patient with traumatic brain injury and upper lower extremity contractions SKIN: No rashes, warm and dry HEAD: Atraumatic. Normocephalic. EYES: Pupils equal round and reactive. Extraocular motions intact. No scleral icterus. ENT: Nose without bleeding, or drainage, Airway patent. NECK: Trachea midline. Supple CARDIOVASCULAR: Regular rate and rhythm without murmurs, gallops, or rubs. RESPIRATORY: Fair air entry bilaterally. No wheezes, rales, or rhonchi. GASTROINTESTINAL: Abdomen soft, non-tender, nondistended. Positive bowel sounds , PEG tube in place MUSCULOSKELETAL: Extremities without clubbing, cyanosis, or edema. Pedal pulses appreciated NEUROLOGICAL: Closed eyes, doesn't move extremities which has tractions, nonverbal A/P Assessment and Plan 07/16: Patient had relapsed fever overnight max 104 at 4 AM, lactic acid increase again to 2.2, still no leukocytosis or left shift, earlier UA and chest x-ray was negative, patient was given Zosyn and Vanco dose overnight, I will check stat ultrasound Doppler of the lower extremity rule out DVT, infectious disease consult, if negative for DVT we may need LP since the clinical presentation is not clearly consistent with pneumonia , discussed with ID, D/W doppler tech >> verbal input so far no evidence of DVT Gen. A/P: 25 years old male with history of traumatic brain injury came with Febrile illness of unknown origin with tachycardia and lactic acidosis rule out sepsis no leukocytosis Left lower lobe infiltrate on CT of the abdomen, no clinical sign of pneumonia> > started Levaquin, monitor for any signs of infection Lactic acidosis 8.8 resolved Hypoglycemia episodes PG [address] abdomen Hyperkalemia and hypercalcemia improved Increased liver enzymes ALP AST along with alkaline phosphatase>> trending down DVT prophylaxis Plan: Left lower lobe infiltrate on CT abdomen>> started Levaquin, monitor D50 with starting hypoglycemic protocol, start tube feed, DC iv fluid Continue laxative regimen, and we'll start on lactulose until getting a bowel movement for severe constipation showed on CT abdomen PEG tube site looks clean no drainage Fever return or worsening lactic acidosis Started on prophylactic antibiotics Zosyn and Vanco in ED we will continue Blood culture sent will follow result DC iv fluid Discharge Planning Patient is developing fever Cornelius Hugo MD Jul 16, 2016 13:01
[2016-07-16] MEDS ORDERED: VANCOMYCIN INJ 1,000 MG in SODIUM CHLOR 0.9% 250 ML INJ 250 ML IV SCH (14:45)
[2016-07-16] MEDS ORDERED: Vancomycin Consult Pharmacy 1 EA OTHER SCH (14:45)
--- NOTE | 2016-07-16 14:53 | RADRPT ---
EXAM DATE/TIME: 07/16/2016 13:59 [facility] COMPARISON: No previous studies available for comparison. INDICATIONS : Pain in bilateral lower extremities. MEDICAL HISTORY : Hypertension. Gastroesophageal reflux disease. Seizures. Atramatic brain injur y. Fever. SURGICAL HISTORY : Craiotomy. PEG tube placement. Orthopedic surgery, left leg. ENCOUNTER: Initial ACUITY: 1 day PAIN SCORE: Non-responsive LOCATION: Bilateral legs. TECHNIQUE: Venous ultrasound of the left and right leg was performed from the inguinal ligament t o the proximal calf. Real-time, color Doppler and spectral tracing, compression and augmentation mounika hniques were used. FINDINGS: RIGHT LEG: There is normal compressibility of the deep venous system from the inguinal region to the proximal calf. No echogenic clot is seen in the lumen of the common femoral, femoral, popliteal, and posterior tibial veins. There is a normal response of the venous system to proximal and distal augmentation and respiration. LEFT LEG: There is normal compressibility of the deep venous system from the inguinal region to t he proximal calf. No echogenic clot is seen in the lumen of the common femoral, femoral, popliteal, and posterior tibial veins. There is a normal response of the venous system to proximal and distal a ugmentation and respiration. CONCLUSION: Negative for deep venous thrombosis. Raman Marshall MD FACR on July 16, 2016 at 14:50 Board Certified Radiologist. This report was verified electronically.
[2016-07-16] MEDS: PIPERACIL-TAZO 4.5 GM PREMIX 100 ML IV SCH ×2 (15:43→22:14)
[2016-07-16] MEDS ORDERED: VANCOMYCIN 1,000 MG/NS 250 ML IV SCH ×2 (16:00)
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
[2016-07-16] MEDS: POLYETHYLENE GLYCOL 17 GM PKG G-TUBE SCH (22:14)
[2016-07-17] VITALS (7 sets, daily range): BP systolic 108–121; BP diastolic 56–70; PULSE 77–103; RESP 16–20; TEMP 96–98; O2SAT 99–100
[2016-07-17] MEDS: CHLORHEXIDINE GLUCONATE 2 % 1 PACK (2 CLOTHS)(taper/protocol) TOPICAL SCH (03:41)
[2016-07-17] MEDS: PIPERACIL-TAZO 4.5 GM PREMIX 100 ML IV SCH ×4 (03:42→21:09)
[2016-07-17] MEDS: HEPARIN SODIUM - SQ 10,000 UNITS/ML VIAL SQ SCH ×3 (03:43→21:10)
[2016-07-17 05:54] LABS: AUTOMATED NEUTROPHIL # 1.4 TH/MM3 (1.8-7.7); BASOPHIL % 0.7 % (0.0-2.0); EOSINOPHIL # 0.3 TH/MM3 (0-0.4); EOSINOPHIL % 5.4 % (0.0-4.0); HEMATOCRIT 35.2 % (39.0-51.0); HEMO FLAGS DIFF FINAL; LYMPH % 54.1 % (9.0-44.0); LYMPHOCYTE # 2.9 TH/MM3 (1.0-4.8); MEAN CELL VOLUME 93.6 FL (80.0-100.0); MEAN CORPUSCULAR HEMOGLOBIN 32.9 PG (27.0-34.0); MEAN CORPUSCULAR HGB CONC 35.2 % (32.0-36.0); MONO % 13.4 % (0.0-8.0); NEUT % 26.4 % (16.0-70.0); PLATELET COUNT 167 TH/MM3 (150-450); RED BLOOD COUNT 3.76 MIL/MM3 (4.50-5.90); RED CELL DISTRIBUTION WIDTH 12.9 % (11.6-17.2); WHITE BLOOD COUNT 5.3 TH/MM3 (4.0-11.0)
[2016-07-17 06:18] LABS: BICARBONATE 30.9 MEQ/L (21.0-32.0); POTASSIUM 3.6 MEQ/L (3.5-5.1)
[2016-07-17] MEDS: LACTULOSE SYRUP 20 GM/30 ML CUP PO SCH (09:00)
--- NOTE | 2016-07-17 09:03 | PD.CONS ---
HPI History of Present Illness This is a 25 year old male with a history of a traumatic brain injury who resides in a local nursing facility and was brought to the emergency room for evaluation of fevers. The patient is nonverbal and therefore the history has been obtained from the EMR. According to the ER notes, he was brought to the ER for evaluation of a fever of 102. Blood cultures were drawn and have no growth 2 days, urine culture was negative 48 hours, influenza A A/B was negative. Chest x-ray was unremarkable. He was noted to have elevated LFTs with a total bilirubin of 0.4, AST 114, ALT 2:15, alkaline phosphatase [address] scan of the abdomen and pelvis revealed patchy left lower lung infiltrates, PEG tube in good position, moderate severity constipation, no evidence of abscess. He was also evaluated with a gallbladder ultrasound () and this revealed negative for gallstones. His LFTs have been improving. GI has been consulted for further evaluation of LFTs. It is unknown if he was recently started on any new medications. Of note, he is on Keppra at home. According to the EMR< he has moved his bowels on 07/16 and 07/17. PFSH Past Medical History Traumatic brain injury Constipation Osteoporosis Dysphagia Contractures Past Surgical History PEG tube placement Coded Allergies: No Known Allergies (Verified , 07/14/16) Medications Allergies Coded Allergies Type Severity Reaction Last Updated Verified No Known Allergies 07/14/16 Yes Active Scripts Medications Dose Route/Sig Days Date Category Milk of Magnesia Liq (Magnesium Hydroxide) 400 Mg/5 Ml Susp 30 Ml G-TUBE DAILY PRN 07/14/16 Reported Caltrate 600+D Soft Chews (Calcium Carbonate-Cholecalciferol) 600-800 Mg-Unit Chew 1 Tab G-TUBE DAILY 07/14/16 Reported Dulcolax Supp (Bisacodyl) 10 Mg Supp 10 Mg RECTAL HS PRN 07/14/16 Reported Artificial Tears Opth Drops (Polyvinyl Alcohol) 1.4% Soln 1 Drop EACH EYE QID PRN 07/14/16 Reported Glycopyrrolate 1 Mg Tab 1 Mg G-TUBE Q8HR 07/14/16 Reported [place] (Hydrocodone-Acetaminophen) 10-325 Mg Tab 1 Tab G-TUBE Q4H PRN 07/14/16 Reported Aspirin 81 Mg Chew 81 Mg G-TUBE DAILY 07/14/16 Reported Polyethylene Glycol 3350 Powder (Polyethylene Glycol) 17 Gm Pow 17 Gm G-TUBE HS 07/14/16 Reported Levetiracetam Liq (Levetiracetam) 500 Mg/5 Ml Soln 200 Mg G-TUBE TID 07/14/16 Reported Duoneb (Ipratropium-Albuterol Neb) 0.5-2.5 Mg/3 Ml Neb 1 Nebule INH Q4HR NEB 07/14/16 Reported Flexeril (Cyclobenzaprine HCl) 10 Mg Tab 10 Mg G-TUBE TID 07/14/16 Reported Omeprazole 20 Mg Cap 20 Mg G-TUBE DAILY 07/14/16 Reported Family History Unobtainable Social History Unobtainable Review of Systems ROS Unable to obtain GI Exam Vitals I&O Vital Signs Date Time Temp Pulse Resp B/P Pulse Ox O2 Delivery O2 Flow Rate FiO2 07/17/16 04:00 96.9 81 17 110/67 100 07/17/16 00:00 96.0 77 16 109/68 99 07/16/16 20:00 96.5 93 18 111/63 100 07/16/16 15:30 96.5 97 16 103/62 97 07/16/16 11:50 97.1 103 16 99/57 98 I/O 07/16/16 07/16/16 07/16/16 07/17/16 07/17/16 07/17/16 07:00 15:00 23:00 07:00 15:00 23:00 Intake Total 940 ml 590 ml 955 ml Output Total 400 ml 1875 ml 625 ml Balance 540 ml -1285 ml 330 ml Intake Oral 0 ml 0 ml IV Total 175 ml Tube Feeding 440 ml 315 ml 755 ml Other 500 ml 100 ml 200 ml Output Urine Total 400 ml 1875 ml 625 ml # Bowel Movements 1 0 1 Imaging Last Impressions Lower Extremity Ultrasound 07/16/16 0000 Signed Impressions: Service Date/Time: Saturday, July 16, 2016 13:59 - CONCLUSION: Negative for deep venous thrombosis. Raman Marshall MD FACR Chest X-Ray 07/16/16 0000 Signed Impressions: Service Date/Time: Saturday, July 16, 2016 04:00 - CONCLUSION: No acute disease. Jose Alba Jr., MD Gall Bladder Ultrasound 07/14/16 0909 Signed Impressions: Service Date/Time: Thursday, July 14, 2016 09:33 - CONCLUSION: Negative for gallstones. Raman Marshall MD FACR Abdomen/Pelvis CT 07/14/16 0000 Signed Impressions: Service Date/Time: Thursday, July 14, 2016 15:46 - CONCLUSION: 1. Patchy left lower lung infiltrates. 2. PEG tube in good position. 3. Moderate severity constipation. 4. No evidence of abscess. Jose Velasquez MD Laboratory Test 07/17/16 07/17/16 05:09 05:39 White Blood Count 5.3 TH/MM3 Red Blood Count 3.76 MIL/MM3 Hemoglobin 12.4 GM/DL Hematocrit 35.2 % Mean Corpuscular Volume 93.6 FL Mean Corpuscular Hemoglobin 32.9 PG Mean Corpuscular Hemoglobin 35.2 % Concent Red Cell Distribution Width 12.9 % Platelet Count 167 TH/MM3 Mean Platelet Volume 8.7 FL Neutrophils (%) (Auto) 26.4 % Lymphocytes (%) (Auto) 54.1 % Monocytes (%) (Auto) 13.4 % Eosinophils (%) (Auto) 5.4 % Basophils (%) (Auto) 0.7 % Neutrophils # (Auto) 1.4 TH/MM3 Lymphocytes # (Auto) 2.9 TH/MM3 Monocytes # (Auto) 0.7 TH/MM3 Eosinophils # (Auto) 0.3 TH/MM3 Basophils # (Auto) 0.0 TH/MM3 CBC Comment DIFF FINAL Differential Comment Sodium Level 149 MEQ/L Potassium Level 3.6 MEQ/L Chloride Level 111 MEQ/L Carbon Dioxide Level 30.9 MEQ/L Anion Gap 7 MEQ/L Blood Urea Nitrogen 6 MG/DL Creatinine 0.55 MG/DL Estimat Glomerular Filtration 222 ML/MIN Rate Random Glucose 70 MG/DL Calcium Level 8.9 MG/DL Date/Time Procedure Status Source Growth 07/14/16 10:35 Influenza Types A,B Antigen (NASRA) - Final Complete Nasal Washing NEGATIVE FOR FLU A AND B ANTIGEN.... 07/14/16 09:10 Urine Culture - Final Complete Urine Catheterized Urine NO GROWTH IN 48 HOURS. 07/14/16 08:00 Aerobic Blood Culture - Preliminary Resulted Blood Peripheral NO GROWTH IN 2 DAYS 07/14/16 08:00 Anaerobic Blood Culture - Preliminary Resulted Blood Peripheral NO GROWTH IN 2 DAYS Physical Examination HEENT: Normocephalic; atraumatic; no jaundice. CHEST: CTA, diminished CARDIAC: RRR ABDOMEN: Soft, nondistended, no hepatosplenomegaly; bowel sounds are present in all four quadrants. 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 Pt was brought to ER for evaluation of fever of 102, workup negative other than left lower lung infiltrate. Abdomen/Pelvis CT (07/14/16)----> 1. Patchy left lower lung infiltrates. 2. PEG tube in good position. 3. Moderate severity constipation. 4. No evidence of abscess. Gall Bladder Ultrasound (07/14/16)--- -> Negative for gallstones. Does not appear to have abdominal tenderness. LFTs are trending down. Unclear if there is any hx of liver disease. Of note, he is on Keppra. - Constipation. + BM. Lactulose. - Fever, Pneumonia. CXR unremarkable, but left lower lobe infiltrates noted on CT scan. BCx no growth 48 hours, FLU A/B neg, Urine Cx negative x 48 hours. Zosyn, Levaquin. - Hx TBI. Per primary PLAN: - Cont. TF - Hepatitis panel - TITUS, AMA, ASMA - AFP level - Alpha 1 Antitrypsin, Ceruloplasmin - Iron Saturation, Ferritin - Monitor LFT - Suspect LFT derangement is secondary to medications (? Keprra/Zosyn) vs. infection. No signs of gallbladder disease on US or CT. - Monitor LFTs closely while on Zosyn. - Supportive care - Further recommendations to follow based on results of above - Pt seen and examined by Dr. Tucker and myself and this note is written on his behalf Licha Michelle Jul 17, 2016 09:03
[2016-07-17] MEDS: levETIRAcetam 500 MG/5 ML UDC G-TUBE SCH ×3 (09:43→18:05)
[2016-07-17] MEDS: ASPIRIN 81 MG CHEW TAB G-TUBE SCH (09:43)
[2016-07-17] MEDS: CALCIUM/VITAMIN D 250 MG/125 U TAB G-TUBE SCH (09:43)
[2016-07-17] MEDS: CYCLOBENZAPRINE HCL 10 MG TAB G-TUBE SCH ×3 (09:43→18:05)
[2016-07-17] MEDS: SODIUM CHLORIDE 0.9% FLUSH 10 ML FLUSH IV FLUSH SCH ×2 (09:44→21:11)
[2016-07-17] MEDS: LEVOFLOXACIN 750 MG PREMIX INJ 150 ML IV SCH (10:00)
--- NOTE | 2016-07-17 10:04 | RADRPT ---
EXAM DATE/TIME: 07/17/2016 09:11 [facility] COMPARISON: CT BRAIN W/O CONTRAST, November 03, 2008, 10:13. INDICATIONS : Altered mental staus, fever today RADIATION DOSE: 40.29 CTDIvol (mGy) MEDICAL HISTORY : Seizures. Hypertension. SURGICAL HISTORY : Craniotomy. vp patient shunts ENCOUNTER: Initial ACUITY: 1 day PAIN SCALE: Non-responsive LOCATION: cranial TECHNIQUE: Multiple contiguous axial images were obtained of the head. Using automated exposure control and adj ustment of the mA and/or kV according to patient size, radiation dose was kept as low as reasonably a chievable to obtain optimal diagnostic quality images. FINDINGS: There is pronounced hydrocephalus with massive dilatation of the lateral ventricles and third ventric le are in the extensive bilateral mainly cortical hyperdensity which may reflect calcification. I do not clearly see any focal density changes to suggest hemorrhagic accumulation. No discrete mass is se en. The findings do not suggest acute infarction. There has been previous bilateral craniotomy. There is extensive mucosal sinus disease. CONCLUSION: Pronounced hydrocephalus. Chronic appearing parenchymal changes. Donaldo Berger MD on July 17, 2016 at 9:57 Board Certified Radiologist. This report was verified electronically.
[2016-07-17 11:26] LABS: TRANSFERRIN IRON PROFILE 228 MG/DL (200-360)
[2016-07-17 11:29] LABS: FERRITIN 93 NG/ML (26-388)
[2016-07-17] MEDS: D5-1/2 NS + KCL 20 MEQ INJ 1,000 ML IV SCH ×2 (11:41→22:26)
--- NOTE | 2016-07-17 13:58 | HHI.PR ---
Subjective Remarks Patient laying in bed, open eyes occasionally, he is nonverbal as usual, no fever overnight however temperature when low to 96 I discussed with ID plan to follow up on urine using a fill, pro-calcitonin, Keppra level, no LP until further recommendation by ID Objective Vitals Vital Signs Date Time Temp Pulse Resp B/P Pulse Ox O2 Delivery O2 Flow Rate FiO2 07/17/16 12:00 97.7 97 18 119/56 100 07/17/16 08:00 97.5 87 20 121/68 100 07/17/16 04:00 96.9 81 17 110/67 100 07/17/16 00:00 96.0 77 16 109/68 99 07/16/16 20:00 96.5 93 18 111/63 100 07/16/16 15:30 96.5 97 16 103/62 97 I/O 07/16/16 07/16/16 07/16/16 07/17/16 07/17/16 07/17/16 07:00 15:00 23:00 07:00 15:00 23:00 Intake Total 940 ml 590 ml 955 ml Output Total 400 ml 1875 ml 625 ml Balance 540 ml -1285 ml 330 ml Intake Oral 0 ml 0 ml IV Total 175 ml Tube Feeding 440 ml 315 ml 755 ml Other 500 ml 100 ml 200 ml Output Urine Total 400 ml 1875 ml 625 ml # Bowel Movements 1 0 1 Result Diagram: 07/17/16 0509 07/17/16 0539 Objective Remarks - - GENERAL: This is a frail 25 years old patient with traumatic brain injury and upper lower extremity contractions SKIN: No rashes, warm and dry HEAD: Atraumatic. Normocephalic. EYES: Pupils equal round and reactive. Extraocular motions intact. No scleral icterus. ENT: Nose without bleeding, or drainage, Airway patent. NECK: Trachea midline. Supple CARDIOVASCULAR: Regular rate and rhythm without murmurs, gallops, or rubs. RESPIRATORY: Fair air entry bilaterally. No wheezes, rales, or rhonchi. GASTROINTESTINAL: Abdomen soft, non-tender, nondistended. Positive bowel sounds , PEG tube in place MUSCULOSKELETAL: Extremities without clubbing, cyanosis, or edema. Pedal pulses appreciated NEUROLOGICAL: Closed eyes, doesn't move extremities which has tractions, nonverbal A/P Assessment and Plan 07/16: Patient had relapsed fever overnight max 104 at 4 AM, lactic acid increase again to 2.2, still no leukocytosis or left shift, earlier UA and chest x-ray was negative, patient was given Zosyn and Vanco dose overnight, I will check stat ultrasound Doppler of the lower extremity rule out DVT, infectious disease consult, if negative for DVT we may need LP since the clinical presentation is not clearly consistent with pneumonia , discussed with ID, D/W doppler tech >> verbal input so far no evidence of DVT 07/17: Pro-calcitonin within normal limits 0.08, no fever overnight Alpha I antitrypsin and ceruloplasmin pending, hepatitis profile negative, TITUS, ASMA, AMA pending No fever overnight but sometimes hypothermia 96-96.5 We'll continue monitoring and follow up with ID and GI Gen. A/P: 25 years old male with history of traumatic brain injury came with Febrile illness of unknown origin with tachycardia and lactic acidosis rule out sepsis no leukocytosis Left lower lobe infiltrate on CT of the abdomen, no clinical sign of pneumonia> > started Levaquin, monitor for any signs of infection Lactic acidosis 8.8 resolved Hypoglycemia episodes PG [address] abdomen Hyperkalemia and hypercalcemia improved Increased liver enzymes ALP AST along with alkaline phosphatase>> trending down DVT prophylaxis Plan: Left lower lobe infiltrate on CT abdomen>> started Levaquin, monitor D50 with starting hypoglycemic protocol, start tube feed, DC iv fluid Continue laxative regimen, and we'll start on lactulose until getting a bowel movement for severe constipation showed on CT abdomen PEG tube site looks clean no drainage Fever return or worsening lactic acidosis Started on prophylactic antibiotics Zosyn and Vanco in ED we will continue Blood culture sent will follow result DC iv fluid Discharge Planning Patient is developing fever Cornelius Hugo MD Jul 17, 2016 13:58
[2016-07-17] MEDS ORDERED: PHARMACY ORDERED LAB ONE (15:45)
--- NOTE | 2016-07-17 17:12 | HHI.IDPN ---
Subjective Subjective Remarks is a 25 y/o AAM with history of traumatic brain injury, Bilateral ESTIMATOR PROJECT MANAGER shunts, Persistent vegetative state, PEG tube in place is a resident at the nursing facility, brought today from the facility with a history of fever 102. Patient is nonverbal he does not provide any history and has bilateral UE and LE contractures. In ED he was found to have a fever of 100.4 and a lactic acidosis of 8.8, as well as increase LFT and alkaline phosphatase, chest x-ray and urinalysis were unremarkable as well as gallbladder ultrasound, no nausea vomiting no diarrhea as per the report to the ED from the nursing facility. She has a PEG tube placed. He was started with a dose of Vanco IV and Zosyn. ID consulted for evaluation of possible sepsis, acute encephalopathy in patient with ESTIMATOR PROJECT MANAGER shunt and Persistent Vegetative state. Upon review of chart it appears patient had altered mental status on admission with mild fever but no leucocytosis on admission. RN mentioned some twitching movements of face noted. Patient was restarted on Keppra. Unsure Keppra levels on admission. Patient appears to be close to baseline now per mother who visited him yday. Overnight events reviewed No fevers No rash No diarrhea Tolerating tube feeds. all cultures negative so far. Baseline mentation reportedly more encephalopathic per family. CT with pronounced hydrocephalus will consult neurosurgery to assist. Procalcitonin normal. Antibiotics Zosyn IV Levaquin IV Lines Line sites with no e.o infection Past Medical History reviewed Allergies: Coded Allergies: No Known Allergies (Verified , 07/14/16) Objective . Vital Signs Date Time Temp Pulse Resp B/P Pulse Ox O2 Delivery O2 Flow Rate FiO2 07/17/16 12:00 97.7 97 18 119/56 100 07/17/16 08:00 97.5 87 20 121/68 100 07/17/16 04:00 96.9 81 17 110/67 100 07/17/16 00:00 96.0 77 16 109/68 99 07/16/16 20:00 96.5 93 18 111/63 100 07/16/16 07/16/16 07/17/16 15:00 23:00 07:00 Intake Total 590 ml 955 ml Output Total 1875 ml 625 ml Balance -1285 ml 330 ml Intake Oral 0 ml IV Total 175 ml Tube Feeding 315 ml 755 ml Other 100 ml 200 ml Output Urine Total 1875 ml 625 ml # Bowel Movements 0 1 . Laboratory Tests Test 07/16/16 07/17/16 06:16 05:09 White Blood Count 6.5 TH/MM3 5.3 TH/MM3 Red Blood Count 4.26 MIL/MM3 3.76 MIL/MM3 Hemoglobin 13.8 GM/DL 12.4 GM/DL Hematocrit 39.8 % 35.2 % Mean Corpuscular Volume 93.5 FL 93.6 FL Mean Corpuscular Hemoglobin 32.3 PG 32.9 PG Mean Corpuscular Hemoglobin 34.6 % 35.2 % Concent Red Cell Distribution Width 12.7 % 12.9 % Platelet Count 199 TH/MM3 167 TH/MM3 Mean Platelet Volume 9.1 FL 8.7 FL Neutrophils (%) (Auto) 39.0 % 26.4 % Lymphocytes (%) (Auto) 47.2 % 54.1 % Monocytes (%) (Auto) 10.7 % 13.4 % Eosinophils (%) (Auto) 2.5 % 5.4 % Basophils (%) (Auto) 0.6 % 0.7 % Neutrophils # (Auto) 2.5 TH/MM3 1.4 TH/MM3 Lymphocytes # (Auto) 3.1 TH/MM3 2.9 TH/MM3 Monocytes # (Auto) 0.7 TH/MM3 0.7 TH/MM3 Eosinophils # (Auto) 0.2 TH/MM3 0.3 TH/MM3 Basophils # (Auto) 0.0 TH/MM3 0.0 TH/MM3 CBC Comment DIFF FINAL DIFF FINAL Differential Comment Laboratory Tests Test 07/16/16 07/17/16 07/17/16 07/17/16 06:16 05:09 05:39 10:36 Sodium Level 146 MEQ/L 149 MEQ/L Potassium Level 4.1 MEQ/L 3.6 MEQ/L Chloride Level 111 MEQ/L 111 MEQ/L Carbon Dioxide Level 28.6 MEQ/L 30.9 MEQ/L Anion Gap 6 MEQ/L 7 MEQ/L Blood Urea Nitrogen 7 MG/DL 6 MG/DL Creatinine 0.88 MG/DL 0.55 MG/DL Estimat Glomerular Filtration 129 ML/MIN 222 ML/MIN Rate Random Glucose 79 MG/DL 70 MG/DL Lactic Acid Level 2.2 mmol/L Calcium Level 9.2 MG/DL 8.9 MG/DL Total Bilirubin 0.4 MG/DL Direct Bilirubin 0.1 MG/DL Indirect Bilirubin 0.3 MG/DL Aspartate Amino Transf 46 U/L (AST/SGOT) Alanine Aminotransferase 131 U/L (ALT/SGPT) Alkaline Phosphatase 129 U/L Total Protein 7.9 GM/DL Albumin 3.5 GM/DL Procalcitonin 0.08 ng/mL Iron Level 110 MCG/DL Total Iron Binding Capacity 319 MCG/DL Percent Iron Saturation 34.5 % Ferritin 93 NG/ML Tumor Marker Alpha Fetoprotein 3.9 NG/ML Imaging Last Impressions Lower Extremity Ultrasound 07/16/16 0000 Signed Impressions: Service Date/Time: Saturday, July 16, 2016 13:59 - CONCLUSION: Negative for deep venous thrombosis. Raman Marshall MD FACR Head CT 07/16/16 0000 Signed Impressions: Service Date/Time: Sunday, July 17, 2016 09:11 - CONCLUSION: Pronounced hydrocephalus. Chronic appearing parenchymal changes. Donaldo Berger MD Chest X-Ray 07/16/16 0000 Signed Impressions: Service Date/Time: Saturday, July 16, 2016 04:00 - CONCLUSION: No acute disease. Jose Alba Jr., MD Gall Bladder Ultrasound 07/14/16 0909 Signed Impressions: Service Date/Time: Thursday, July 14, 2016 09:33 - CONCLUSION: Negative for gallstones. Raman Marshall MD FACR Abdomen/Pelvis CT 07/14/16 0000 Signed Impressions: Service Date/Time: Thursday, July 14, 2016 15:46 - CONCLUSION: 1. Patchy left lower lung infiltrates. 2. PEG tube in good position. 3. Moderate severity constipation. 4. No evidence of abscess. Jose Velasquez MD Physical Exam GENERAL:Chronically ill appearing AAM, poorly nourished patient, in no apparent distress. SKIN: No rashes, ecchymoses or lesions. Cool and dry. HEAD: Prior surgical scars ok. Deformities noted. No temporal or scalp tenderness. EYES: Pupils equal round and reactive. No scleral icterus. No injection or drainage. ENT: Limited exam grossly ok. NECK: Trachea midline. CARDIOVASCULAR: RRR RESPIRATORY: Clear to auscultation. Breath sounds equal bilaterally. No wheezes , rales, or rhonchi. GASTROINTESTINAL: Abdomen soft, non-tender, nondistended. MUSCULOSKELETAL: Extremities without clubbing, cyanosis, or edema. NEUROLOGICAL: Opens eyes spontaneously. Contractures in bilateral LE. Psych could not be assessed IV line sites with no e.o infection. Assessment & Plan Remarks Fever in a patient with persistent Vegetative state and with ESTIMATOR PROJECT MANAGER shunts bilaterally. Traumatic brain injury Seizure disorder on Keppra. Aspiration Pneumonia present on admission PEG tube in place. Abnormal LFTs: sepsis, Keppra Constipation ? Aspiration due to ileus ? Drug induced fever as high grade fevers started after antibiotics started. Recs: DC Levaquin IV Continue Zosyn IV Follow Keppra levels. CT Brain non contrast reviewed distorted anatomy with pronounced hydrocephalus on left side on my review. CT A/P reviewed no ESTIMATOR PROJECT MANAGER shunt related or PEG tube related abscess. Normal Procalcitonin: less likely to be infectious process. EG to rule out ongoing seizures which can cause fevers as well. Follow cultures Follow clinically. dw Neurosx consult to assist with CT findings and assess ESTIMATOR PROJECT MANAGER shunt function as well as fluid for CSF studies and micro/culture. Susy Figueredo MD Jul 17, 2016 17:12
--- NOTE | 2016-07-17 19:51 | PD.CONS ---
History of Present Illness Service Neurosurgery Consult Requested By Dr. Hugo Reason for Consult Shunt malfunction Primary Care Physician Marcio Archibald MD Diagnoses: History of Present Illness 25-year-old male with history of severe traumatic brain injury in September 2008 requiring bilateral decompressive craniotomies with subsequent bone flap replacement in October 2008. He has had bilateral ventriculoperitoneal shunt placements. [facility] with a temperature of 102. Initial chest x-ray and urinalysis in the emergency room unremarkable. He also had a gallbladder ultrasound reported negative. The patient does have a PEG tube in place on a chronic basis. He has had no recent nausea or vomiting. Possible recent seizure was some facial twitching movements noted. He has been restarted on Keppra since his admission. Discussion with the patient's mother on the telephone today indicates that she has not noticed any change in his mentation over the past few weeks or months. Review of Systems Patient does not communicate. Unable to obtain review of systems from the patient. No recent changes according to the patient's mother. Past Family Social History Allergies: Coded Allergies: No Known Allergies (Verified , 07/14/16) Past Medical History Severe traumatic brain injury as noted above. Past Surgical History Bilateral craniotomy with subsequent bone flap replacement September in October 2008. Ventricular peritoneal shunt placements PEG tube Reported Medications Reported Meds & Active Scripts Active Reported Milk of Magnesia Liq (Magnesium Hydroxide) 400 Mg/5 Ml Susp 30 Ml G-TUBE DAILY PRN Caltrate 600+D Soft Chews (Calcium Carbonate-Cholecalciferol) 600-800 Mg-Unit Chew 1 Tab G-TUBE DAILY Dulcolax Supp (Bisacodyl) 10 Mg Supp 10 Mg RECTAL HS PRN Artificial Tears Opth Drops (Polyvinyl Alcohol) 1.4% Soln 1 Drop EACH EYE QID PRN Glycopyrrolate 1 Mg Tab 1 Mg G-TUBE Q8HR [place] (Hydrocodone-Acetaminophen) 10-325 Mg Tab 1 Tab G-TUBE Q4H PRN Aspirin 81 Mg Chew 81 Mg G-TUBE DAILY Polyethylene Glycol 3350 Powder (Polyethylene Glycol) 17 Gm Pow 17 Gm G-TUBE HS Levetiracetam Liq (Levetiracetam) 500 Mg/5 Ml Soln 200 Mg G-TUBE TID Duoneb (Ipratropium-Albuterol Neb) 0.5-2.5 Mg/3 Ml Neb 1 Nebule INH Q4HR NEB Flexeril (Cyclobenzaprine HCl) 10 Mg Tab 10 Mg G-TUBE TID Omeprazole 20 Mg Cap 20 Mg G-TUBE DAILY Social History [facility] in a [facility] Physical Exam Vital Signs Vital Signs Date Time Temp Pulse Resp B/P Pulse Ox O2 Delivery O2 Flow Rate FiO2 07/17/16 16:00 97.7 103 18 109/65 100 07/17/16 12:00 97.7 97 18 119/56 100 07/17/16 08:00 97.5 87 20 121/68 100 07/17/16 04:00 96.9 81 17 110/67 100 07/17/16 00:00 96.0 77 16 109/68 99 07/16/16 20:00 96.5 93 18 111/63 100 Physical Exam GENERAL: Patient nonverbal, multiple contractures in the upper and lower extremities. SKIN: No rashes, ecchymoses or lesions. Cool and dry. HEAD: Multiple well-healed incisions. Shunt valves are palpable. They did not compress or refill. EYES: Pupils mid range. Sclerae are clear and nonicteric ENT: Oropharynx not well seen due to lack of cooperation from patient. No otitis noted NECK: Chronic left sternocleidomastoid contracture. He keeps his head rotated and flexed to the left side. However no definite nuchal rigidity noted. CARDIOVASCULAR: Regular rate and rhythm without murmurs, gallops, or rubs. RESPIRATORY: Clear to auscultation. Breath sounds equal bilaterally. No wheezes , rales, or rhonchi. GASTROINTESTINAL: Abdomen soft, nondistended. No hepato-splenomegaly, or palpable masses. No guarding. MUSCULOSKELETAL: Severe left greater than right upper extremity flexion contractures. Hands remained in a fist bilateral. Significant lower extremity extensor contractures. NEUROLOGICAL: Minimal eye opening to voice and sternal rub. Pupils mid range Disconjugate wandering gaze Does not focus or follow with eyes Nonverbal . Does not follow commands or attempt to localize Sensorimotor function not well tested in the extremities due to decreased mental status and severe contractures Laboratory Laboratory Tests Test 07/17/16 07/17/16 07/17/16 05:09 05:39 10:36 White Blood Count 5.3 Red Blood Count 3.76 Hemoglobin 12.4 Hematocrit 35.2 Mean Corpuscular Volume 93.6 Mean Corpuscular Hemoglobin 32.9 Mean Corpuscular Hemoglobin 35.2 Concent Red Cell Distribution Width 12.9 Platelet Count 167 Mean Platelet Volume 8.7 Neutrophils (%) (Auto) 26.4 Lymphocytes (%) (Auto) 54.1 Monocytes (%) (Auto) 13.4 Eosinophils (%) (Auto) 5.4 Basophils (%) (Auto) 0.7 Neutrophils # (Auto) 1.4 Lymphocytes # (Auto) 2.9 Monocytes # (Auto) 0.7 Eosinophils # (Auto) 0.3 Basophils # (Auto) 0.0 CBC Comment DIFF FINAL Differential Comment Procalcitonin 0.08 Sodium Level 149 Potassium Level 3.6 Chloride Level 111 Carbon Dioxide Level 30.9 Anion Gap 7 Blood Urea Nitrogen 6 Creatinine 0.55 Estimat Glomerular Filtration 222 Rate Random Glucose 70 Calcium Level 8.9 Iron Level 110 Total Iron Binding Capacity 319 Percent Iron Saturation 34.5 Ferritin 93 Tumor Marker Alpha Fetoprotein 3.9 Hepatitis A IgM Antibody NEGATIVE Hepatitis B Surface Antigen NEGATIVE Hepatitis B Core IgM Antibody NEGATIVE Hepatitis C Antibody NEGATIVE Date/Time Procedure Status Source Growth 07/14/16 10:35 Influenza Types A,B Antigen (NASRA) - Final Complete Nasal Washing NEGATIVE FOR FLU A AND B ANTIGEN.... 07/14/16 09:10 Urine Culture - Final Complete Urine Catheterized Urine NO GROWTH IN 48 HOURS. 07/14/16 08:00 Aerobic Blood Culture - Preliminary Resulted Blood Peripheral NO GROWTH IN 3 DAYS 07/14/16 08:00 Anaerobic Blood Culture - Preliminary Resulted Blood Peripheral NO GROWTH IN 3 DAYS Result Diagram: 07/17/16 0509 07/17/16 0539 Imaging 07/16/2016 CT scan head images reviewed by the undersigned. There is severe chronic-appearing hydrocephalus with significant encephalomalacia throughout the right and left hemisphere. Lower Extremity Ultrasound 07/16/16 0000 Signed Impressions: Service Date/Time: Saturday, July 16, 2016 13:59 - CONCLUSION: Negative for deep venous thrombosis. Raman Marshall MD FACR Head CT 07/16/16 0000 Signed Impressions: Service Date/Time: Sunday, July 17, 2016 09:11 - CONCLUSION: Pronounced hydrocephalus. Chronic appearing parenchymal changes. Donaldo Berger MD Chest X-Ray 07/16/16 0000 Signed Impressions: Service Date/Time: Saturday, July 16, 2016 04:00 - CONCLUSION: No acute disease. Jose Alba Jr., MD Gall Bladder Ultrasound 07/14/16 0909 Signed Impressions: Service Date/Time: Thursday, July 14, 2016 09:33 - CONCLUSION: Negative for gallstones. Raman Marshall MD FACR Abdomen/Pelvis CT 07/14/16 0000 Signed Impressions: Service Date/Time: Thursday, July 14, 2016 15:46 - CONCLUSION: 1. Patchy left lower lung infiltrates. 2. PEG tube in good position. 3. Moderate severity constipation. 4. No evidence of abscess. Jose Velasquez MD Assessment and Plan Assessment and Plan Impression: 1. Previous severe traumatic brain injury status post bilateral decompressive craniotomy and bone flap replacement in 2008. 2. No definite evidence of shunt infection based on initial laboratory results and examination. 3. Ventriculoperitoneal shunt malfunction with significant chronic appearing bilateral hydrocephalus. No definite recent change in neurologic or mental function according to the patient's family. Recommendations: Findings were discussed with the patient's mother. I advised her of the option of ventriculoperitoneal shunt revision. It is unlikely that revision of the shunt will have a significant impact in his overall neurologic function or mental function. The patient's mothers coming to the hospital tomorrow to discuss treatment options and plan. If she is in agreement, a ventriculoperitoneal shunt tap for culture can be obtained, although it it is likely that the shunts are nonfunctioning, and lumbar puncture may be necessary for spinal fluid specimen. Leif Champagne MD Jul 17, 2016 19:51
[2016-07-17] MEDS: POLYETHYLENE GLYCOL 17 GM PKG G-TUBE SCH (21:09)
[2016-07-18] VITALS (8 sets, daily range): BP systolic 96–120; BP diastolic 57–93; PULSE 66–91; RESP 16–18; TEMP 96.3–97.4; O2SAT 98–100
[2016-07-18] MEDS: PIPERACIL-TAZO 4.5 GM PREMIX 100 ML IV SCH ×4 (02:52→22:19)
[2016-07-18] MEDS: CHLORHEXIDINE GLUCONATE 2 % 1 PACK (2 CLOTHS)(taper/protocol) TOPICAL SCH (04:29)
[2016-07-18] MEDS: HEPARIN SODIUM - SQ 10,000 UNITS/ML VIAL SQ SCH ×3 (04:34→22:20)
[2016-07-18 05:56] LABS: AUTOMATED NEUTROPHIL # 1.5 TH/MM3 (1.8-7.7); BASOPHIL % 0.8 % (0.0-2.0); EOSINOPHIL # 0.4 TH/MM3 (0-0.4); EOSINOPHIL % 7.4 % (0.0-4.0); HEMATOCRIT 35.1 % (39.0-51.0); HEMO FLAGS DIFF FINAL; LYMPH % 52.9 % (9.0-44.0); LYMPHOCYTE # 2.6 TH/MM3 (1.0-4.8); MEAN CELL VOLUME 94.2 FL (80.0-100.0); MEAN CORPUSCULAR HEMOGLOBIN 31.5 PG (27.0-34.0); MEAN CORPUSCULAR HGB CONC 33.4 % (32.0-36.0); MONO % 7.9 % (0.0-8.0); PLATELET COUNT 164 TH/MM3 (150-450); RED BLOOD COUNT 3.72 MIL/MM3 (4.50-5.90); RED CELL DISTRIBUTION WIDTH 12.8 % (11.6-17.2)
[2016-07-18 06:29] LABS: BICARBONATE 29.6 MEQ/L (21.0-32.0); INDIRECT BILIRUBIN 0.2 MG/DL (0.0-0.8); MAGNESIUM 1.8 MG/DL (1.5-2.5); POTASSIUM 3.4 MEQ/L (3.5-5.1); TOTAL BILIRUBIN ADULT 0.3 MG/DL (0.2-1.0)
--- NOTE | 2016-07-18 08:38 | HHI.PR ---
Subjective Remarks Follow up on febrile illness with lactic acidosis not fully explain Left lower lobe infiltrate on CT of the abdomen without clear clinical sign of pneumonia ID on board, neurosurgery consulted to rule out BURNER OPERATOR shunt infection Today patient Laying in bed open eyes looks comfortable no acute issue, afebrile overnight Objective Vitals Vital Signs Date Time Temp Pulse Resp B/P Pulse Ox O2 Delivery O2 Flow Rate FiO2 07/18/16 04:08 96.3 91 16 99/57 100 07/18/16 00:00 96.4 82 16 120/93 98 07/17/16 20:23 94 07/17/16 20:00 98.0 88 16 108/70 100 07/17/16 16:00 97.7 103 18 109/65 100 07/17/16 12:00 97.7 97 18 119/56 100 I/O 07/17/16 07/17/16 07/17/16 07/18/16 07/18/16 07/18/16 07:00 15:00 23:00 07:00 15:00 23:00 Intake Total 955 ml 2480 ml 1170 ml Output Total 625 ml 1150 ml 700 ml 450 ml Balance 330 ml -1150 ml 1780 ml 720 ml Intake Oral 0 ml IV Total 1470 ml 660 ml Tube Feeding 755 ml 650 ml 390 ml Other 200 ml 360 ml 120 ml Output Urine Total 625 ml 1150 ml 700 ml 450 ml # Bowel Movements 1 1 0 Result Diagram: 07/18/16 0538 07/18/16 05 Objective Remarks - - GENERAL: This is a frail 25 years old patient with traumatic brain injury and upper lower extremity contractions SKIN: No rashes, warm and dry HEAD: Atraumatic. Normocephalic. EYES: Pupils equal round and reactive. Extraocular motions intact. No scleral icterus. ENT: Nose without bleeding, or drainage, Airway patent. NECK: Trachea midline. Supple CARDIOVASCULAR: Regular rate and rhythm without murmurs, gallops, or rubs. RESPIRATORY: Fair air entry bilaterally. No wheezes, rales, or rhonchi. GASTROINTESTINAL: Abdomen soft, non-tender, nondistended. Positive bowel sounds , PEG tube in place MUSCULOSKELETAL: Extremities without clubbing, cyanosis, or edema. Pedal pulses appreciated NEUROLOGICAL: Closed eyes, doesn't move extremities which has tractions, nonverbal A/P Assessment and Plan Gen. A/P: 25 years old male with history of traumatic brain injury came with Febrile illness of unknown origin with tachycardia and lactic acidosis rule out sepsis no leukocytosis Relapsing fever> drug induced versus due to CP shunt infection>> consulted neurology Lactic acidosis 8.8 resolved to normal limit then increase to 2.2 Left lower lobe infiltrate on CT abdomen>> s/p Levaquin, on Zosyn per ID, monitor Started on prophylactic antibiotics Zosyn and Vanco in ED continue, and follow ID recommendation Blood culture negative Patient had relapsed fever overnight max 104 , lactic acid increased again to 2.2, still no leukocytosis or left shift, earlier UA and chest x-ray was negative, patient was given Zosyn and Vanco dose overnight, ultrasound Doppler of the lower extremity negative for DVT, infectious disease consulted, if negative for DVT we may need LP since the clinical presentation is not clearly consistent with pneumonia , Pro-calcitonin within normal limits Left lower lobe infiltrate on CT of the abdomen, no clinical sign of pneumonia> > status post Levaquin, ID following D/W ID specialist, CT of the head ordered by her showing chronic hydrocephalus, she recommended consulting neurosurgery rule out a BURNER OPERATOR shunt infection, Dr. Don saw the patient and discussed with the family, he may go for a shunt review and culture however he still doesn't think that we'll result in big effect on clinical situation Hypoglycemia episodes BG 63 For hyponatremia and hypoglycemia D50 with hypoglycemic protocol, start tube feed, DC iv fluid Severe constipation on CT abdomen Continue laxative regimen, and start on lactulose until getting a bowel movement for severe constipation showed on CT abdomen Hypernatremia Hyperkalemia and hypercalcemia improved>> replace water deficit, change iv fluid to D5W with KCl, monitor BMP, sodium dropped from 149 to 146 Increased liver enzymes ALP AST along with alkaline phosphatase>> trending down , Appreciate GI consultation for elevated transaminases Alpha I antitrypsin and ceruloplasmin pending, hepatitis profile negative, TITUS, ASMA, AMA pending DVT prophylaxis Discharge Planning When clinically improved Cornelius Hugo MD Jul 18, 2016 08:38
[2016-07-18] MEDS: SODIUM CHLORIDE 0.9% FLUSH 10 ML FLUSH IV FLUSH SCH ×2 (09:00→21:00)
[2016-07-18] MEDS: ASPIRIN 81 MG CHEW TAB G-TUBE SCH (09:00)
[2016-07-18] MEDS: CYCLOBENZAPRINE HCL 10 MG TAB G-TUBE SCH ×3 (09:46→17:30)
[2016-07-18] MEDS: CALCIUM/VITAMIN D 250 MG/125 U TAB G-TUBE SCH (09:46)
[2016-07-18] MEDS: LACTULOSE SYRUP 20 GM/30 ML CUP PO SCH (09:46)
[2016-07-18] MEDS: levETIRAcetam 500 MG/5 ML UDC G-TUBE SCH ×3 (09:46→17:31)
[2016-07-18] MEDS: D5W + KCL 20 MEQ INJ 1,000 ML IV SCH (12:46)
[2016-07-18 13:35] LABS: ANA SCREEN NEG (NEG)
--- NOTE | 2016-07-18 16:05 | MG ---
cc: MORIAH CLEMENTE MD, DALIA M.D. Lab No: [id number] Date: 07/18/2016 Age: 25 Sex: M Photic stimulation. Awake, drowsy, asleep study. Last EEG shows slowing, some possible abnormal activity of the right side but not seizures per chart note this is a 25-year-old man with aspiration pneumonia, fever, twitching movements of the face, history of traumatic brain injury, bilateral TRAFFIC SIGN ERECTION SUPERVISOR shunt, fever, persistent vegetative state on Zosyn, heparin, Levaquin. DESCRIPTION OF RECORD Quite a bit of eye movement artifact noted. Eyes rolling. There seems like there is a 9 Hz, 20 microvolt alpha rhythm. Ongoing eye rolling movement artifact. EKG looks like sinus tachycardia. There was a washcloth that was touching a lead and there was some artifact from that. There was some questionable phase reversals over the right central parietal region, however, it looked like it was more movement artifact than a true finding. It was just one incidence, not continuous, and it does look artifactual. Photic stimulation, more eye movement artifact but there is a mild driving response. IMPRESSION Overall benign-looking EEG, no evidence of any epileptic activity. Seems to have a normal alpha rhythm at times. Quite a bit of eye movement artifact, otherwise. Jennifer Brunson MD DF/BT /2:15 PM /3:50 PM
--- NOTE | 2016-07-18 16:20 | HHI.IDPN ---
Subjective Subjective Remarks is a 25 y/o AAM with history of traumatic brain injury, Bilateral RD SCIENTIST shunts, Persistent vegetative state, PEG tube in place is a resident at the nursing facility, brought today from the facility with a history of fever 102. Patient is nonverbal he does not provide any history and has bilateral UE and LE contractures. In ED he was found to have a fever of 100.4 and a lactic acidosis of 8.8, as well as increase LFT and alkaline phosphatase, chest x-ray and urinalysis were unremarkable as well as gallbladder ultrasound, no nausea vomiting no diarrhea as per the report to the ED from the nursing facility. She has a PEG tube placed. He was started with a dose of Vanco IV and Zosyn. ID consulted for evaluation of possible sepsis, acute encephalopathy in patient with RD SCIENTIST shunt and Persistent Vegetative state. Upon review of chart it appears patient had altered mental status on admission with mild fever but no leucocytosis on admission. RN mentioned some twitching movements of face noted. Patient was restarted on Keppra. Unsure Keppra levels on admission. Patient appears to be close to baseline now per mother who visited him yday. Overnight events reviewed No fevers No rash No diarrhea Tolerating tube feeds. all cultures negative so far. Baseline mentation per discussion with Mother but she has not visited patient in 2 weeks at [facility] so not aware of details. CT with pronounced hydrocephalus will consult neurosurgery to assist. Procalcitonin normal. Antibiotics Zosyn IV Levaquin IV Lines Line sites with no e.o infection Past Medical History reviewed Allergies: Coded Allergies: No Known Allergies (Verified , 07/14/16) Objective . Vital Signs Date Time Temp Pulse Resp B/P Pulse Ox O2 Delivery O2 Flow Rate FiO2 07/18/16 12:00 97.4 86 18 113/84 100 07/18/16 08:35 71 07/18/16 08:00 97.0 72 18 97/68 100 07/18/16 04:08 96.3 91 16 99/57 100 07/18/16 00:00 96.4 82 16 120/93 98 07/17/16 20:23 94 07/17/16 20:00 98.0 88 16 108/70 100 07/17/16 07/17/16 07/18/16 15:00 23:00 07:00 Intake Total 2480 ml 1170 ml Output Total 1150 ml 700 ml 450 ml Balance -1150 ml 1780 ml 720 ml Intake Oral 0 ml IV Total 1470 ml 660 ml Tube Feeding 650 ml 390 ml Other 360 ml 120 ml Output Urine Total 1150 ml 700 ml 450 ml # Bowel Movements 1 0 . Laboratory Tests Test 07/17/16 07/18/16 05:09 05:38 White Blood Count 5.3 TH/MM3 5.0 TH/MM3 Red Blood Count 3.76 MIL/MM3 3.72 MIL/MM3 Hemoglobin 12.4 GM/DL 11.7 GM/DL Hematocrit 35.2 % 35.1 % Mean Corpuscular Volume 93.6 FL 94.2 FL Mean Corpuscular Hemoglobin 32.9 PG 31.5 PG Mean Corpuscular Hemoglobin 35.2 % 33.4 % Concent Red Cell Distribution Width 12.9 % 12.8 % Platelet Count 167 TH/MM3 164 TH/MM3 Mean Platelet Volume 8.7 FL 8.9 FL Neutrophils (%) (Auto) 26.4 % 31.0 % Lymphocytes (%) (Auto) 54.1 % 52.9 % Monocytes (%) (Auto) 13.4 % 7.9 % Eosinophils (%) (Auto) 5.4 % 7.4 % Basophils (%) (Auto) 0.7 % 0.8 % Neutrophils # (Auto) 1.4 TH/MM3 1.5 TH/MM3 Lymphocytes # (Auto) 2.9 TH/MM3 2.6 TH/MM3 Monocytes # (Auto) 0.7 TH/MM3 0.4 TH/MM3 Eosinophils # (Auto) 0.3 TH/MM3 0.4 TH/MM3 Basophils # (Auto) 0.0 TH/MM3 0.0 TH/MM3 CBC Comment DIFF FINAL DIFF FINAL Differential Comment Laboratory Tests Test 07/17/16 07/17/16 07/17/16 07/18/16 05:09 05:39 10:36 05:38 Procalcitonin 0.08 ng/mL Sodium Level 149 MEQ/L 146 MEQ/L Potassium Level 3.6 MEQ/L 3.4 MEQ/L Chloride Level 111 MEQ/L 109 MEQ/L Carbon Dioxide Level 30.9 MEQ/L 29.6 MEQ/L Anion Gap 7 MEQ/L 7 MEQ/L Blood Urea Nitrogen 6 MG/DL 6 MG/DL Creatinine 0.55 MG/DL 0.67 MG/DL Estimat Glomerular Filtration 222 ML/MIN 177 ML/MIN Rate Random Glucose 70 MG/DL 153 MG/DL Calcium Level 8.9 MG/DL 8.8 MG/DL Iron Level 110 MCG/DL Total Iron Binding Capacity 319 MCG/DL Percent Iron Saturation 34.5 % Ferritin 93 NG/ML Tumor Marker Alpha Fetoprotein 3.9 NG/ML [id number] 147 mg/dL Phosphorus Level 3.0 MG/DL Magnesium Level 1.8 MG/DL Total Bilirubin 0.3 MG/DL Direct Bilirubin 0.1 MG/DL Indirect Bilirubin 0.2 MG/DL Aspartate Amino Transf 50 U/L (AST/SGOT) Alanine Aminotransferase 101 U/L (ALT/SGPT) Alkaline Phosphatase 97 U/L Total Protein 6.5 GM/DL Albumin 2.8 GM/DL Imaging Last Impressions Lower Extremity Ultrasound 07/16/16 0000 Signed Impressions: Service Date/Time: Saturday, July 16, 2016 13:59 - CONCLUSION: Negative for deep venous thrombosis. Raman Marshall MD FACR Head CT 07/16/16 0000 Signed Impressions: Service Date/Time: Sunday, July 17, 2016 09:11 - CONCLUSION: Pronounced hydrocephalus. Chronic appearing parenchymal changes. Donaldo Berger MD Chest X-Ray 07/16/16 0000 Signed Impressions: Service Date/Time: Saturday, July 16, 2016 04:00 - CONCLUSION: No acute disease. Jose Alba Jr., MD Gall Bladder Ultrasound 07/14/16 0909 Signed Impressions: Service Date/Time: Thursday, July 14, 2016 09:33 - CONCLUSION: Negative for gallstones. Raman Marshall MD FACR Abdomen/Pelvis CT 07/14/16 0000 Signed Impressions: Service Date/Time: Thursday, July 14, 2016 15:46 - CONCLUSION: 1. Patchy left lower lung infiltrates. 2. PEG tube in good position. 3. Moderate severity constipation. 4. No evidence of abscess. Jose Velasquez MD Physical Exam GENERAL:Chronically ill appearing AAM, poorly nourished patient, in no apparent distress. SKIN: No rashes, ecchymoses or lesions. Cool and dry. HEAD: Prior surgical scars ok. Deformities noted. No temporal or scalp tenderness. EYES: Pupils equal round and reactive. No scleral icterus. No injection or drainage. ENT: Limited exam grossly ok. NECK: Trachea midline. CARDIOVASCULAR: RRR RESPIRATORY: Clear to auscultation. Breath sounds equal bilaterally. No wheezes , rales, or rhonchi. GASTROINTESTINAL: Abdomen soft, non-tender, nondistended. MUSCULOSKELETAL: Extremities without clubbing, cyanosis, or edema. NEUROLOGICAL: Opens eyes spontaneously. Contractures in bilateral LE. Psych could not be assessed IV line sites with no e.o infection. Assessment & Plan Remarks Fever in a patient with persistent Vegetative state and with RD SCIENTIST shunts bilaterally. Traumatic brain injury Seizure disorder on Keppra. Aspiration Pneumonia present on admission PEG tube in place. Abnormal LFTs: sepsis, Keppra Constipation ? Aspiration due to ileus ? Drug induced fever as high grade fevers started after antibiotics started. Recs: Continue Zosyn IV Follow Keppra levels. EEG normal. Normal Procalcitonin: less likely to be infectious process. Follow cultures Follow clinically. dw Patients mother. Susy Figueredo MD Jul 18, 2016 16:20
[2016-07-18] MEDS: POLYETHYLENE GLYCOL 17 GM PKG G-TUBE SCH (22:19)
[2016-07-19] VITALS (7 sets, daily range): BP systolic 101–137; BP diastolic 62–85; PULSE 61–89; RESP 16; TEMP 96–97.8; O2SAT 99–100
[2016-07-19] MEDS: PIPERACIL-TAZO 4.5 GM PREMIX 100 ML IV SCH ×2 (03:24→09:52)
[2016-07-19] MEDS: CHLORHEXIDINE GLUCONATE 2 % 1 PACK (2 CLOTHS)(taper/protocol) TOPICAL SCH (04:00)
[2016-07-19] MEDS: HEPARIN SODIUM - SQ 10,000 UNITS/ML VIAL SQ SCH ×3 (04:25→20:59)
[2016-07-19] MEDS: D5W + KCL 20 MEQ INJ 1,000 ML IV SCH (04:26)
[2016-07-19 06:45] LABS: BICARBONATE 30.2 MEQ/L (21.0-32.0); POTASSIUM 4.1 MEQ/L (3.5-5.1)
[2016-07-19] MEDS: SODIUM CHLORIDE 0.9% FLUSH 10 ML FLUSH IV FLUSH SCH ×2 (09:00→21:00)
[2016-07-19] MEDS: LACTULOSE SYRUP 20 GM/30 ML CUP PO SCH (09:00)
[2016-07-19] MEDS: levETIRAcetam 500 MG/5 ML UDC G-TUBE SCH ×3 (09:52→17:45)
[2016-07-19] MEDS: ASPIRIN 81 MG CHEW TAB G-TUBE SCH (09:52)
[2016-07-19] MEDS: CYCLOBENZAPRINE HCL 10 MG TAB G-TUBE SCH ×3 (09:52→17:45)
[2016-07-19] MEDS: CALCIUM/VITAMIN D 250 MG/125 U TAB G-TUBE SCH (09:52)
--- NOTE | 2016-07-19 10:55 | HHI.PR ---
Subjective Remarks Follow-up febrile illness, ?pneumonia. No changes reported. Patient is nonverbal and does not track or follow commands. Objective Vitals Vital Signs Date Time Temp Pulse Resp B/P Pulse Ox O2 Delivery O2 Flow Rate FiO2 07/19/16 07:50 96.4 84 16 116/67 100 07/19/16 05:25 96.0 80 16 109/62 100 07/19/16 00:00 96.2 89 16 109/85 99 07/18/16 20:09 73 07/18/16 20:00 96.3 81 16 97/71 100 07/18/16 16:00 97.0 66 16 96/69 98 07/18/16 12:00 97.4 86 18 113/84 100 I/O 07/18/16 07/18/16 07/18/16 07/19/16 07/19/16 07/19/16 07:00 15:00 23:00 07:00 15:00 23:00 Intake Total 1170 ml 1290 ml 200 ml 0 ml Output Total 450 ml 1150 ml 400 ml 300 ml Balance 720 ml 140 ml -200 ml -300 ml Intake Oral 0 ml 0 ml IV Total 660 ml 670 ml Tube Feeding 390 ml 420 ml Other 120 ml 200 ml 200 ml Output Urine Total 450 ml 1150 ml 400 ml 300 ml # Bowel Movements 0 0 0 Result Diagram: 07/18/16 0538 07/19/16 0600 Imaging Last Impressions Lower Extremity Ultrasound 07/16/16 0000 Signed Impressions: Service Date/Time: Saturday, July 16, 2016 13:59 - CONCLUSION: Negative for deep venous thrombosis. Raman Marshall MD FACR Head CT 07/16/16 0000 Signed Impressions: Service Date/Time: Sunday, July 17, 2016 09:11 - CONCLUSION: Pronounced hydrocephalus. Chronic appearing parenchymal changes. Donaldo Berger MD Chest X-Ray 07/16/16 0000 Signed Impressions: Service Date/Time: Saturday, July 16, 2016 04:00 - CONCLUSION: No acute disease. Jose Alba Jr., MD Gall Bladder Ultrasound 07/14/16 0909 Signed Impressions: Service Date/Time: Thursday, July 14, 2016 09:33 - CONCLUSION: Negative for gallstones. Raman Marshall MD FACR Abdomen/Pelvis CT 07/14/16 0000 Signed Impressions: Service Date/Time: Thursday, July 14, 2016 15:46 - CONCLUSION: 1. Patchy left lower lung infiltrates. 2. PEG tube in good position. 3. Moderate severity constipation. 4. No evidence of abscess. Jose Velasquez MD Objective Remarks General: No acute distress. Heart: Regular rate and rhythm. No murmur. Lungs: Clear to auscultation bilaterally. No wheezes, rales, or rhonchi. Breathing is nonlabored. Abdomen: Soft, nontender, nondistended. Extremities: No lower extremity edema. Psych: Nonverbal. Does not follow commands. Does not track. Urinary Catheter: Yes Assessment to: Continue Donald insert reason: Prolonged Immobilization Vascular Central Line Catheter: No A/P Problem List: (1) Sepsis ICD Code: A41.9 Status: Acute (2) Pneumonia ICD Code: J18.9 Status: Acute Assessment and Plan 1. Febrile illness, likely pneumonia/sepsis: Continue antibiotics. Appreciate infectious disease recommendations. Blood cultures are negative. 2. Lactic acidosis: Improved. 3. Chronic hydrocephalus: Neurosurgery consult appreciated. 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 4. Poor overall prognosis: Palliative care consulted. 5. Severe constipation: Continue laxative regimen. 6. Electrolyte abnormalities: Continue IV fluids. Monitor labs. 7. Elevated LFTs: Trending down. Appreciate GI recommendations. Hepatitis panel is negative. 8. DVT prophylaxis: Subcutaneous heparin. 9. History of traumatic brain injury 10. Seizure disorder: Continue Keppra. 11. PEG tube in place. Continue tube feeds. Fabián Castillo MD Jul 19, 2016 10:55
--- NOTE | 2016-07-19 13:36 | HHI.IDPN ---
Note Infectious Disease Note d/w . Will DC Zosyn IV as aspiration pneumonitis treated. If pt undergoes JOINT TERMINAL ATTACK CONTROLLER shunt revision can obtain cultures then. Low likelihood of meningitis. Suspect aspiration in setting of severe constipation. Will follow prn. Please touch base with me about response. Vital Signs Date Time Temp Pulse Resp B/P Pulse Ox O2 Delivery O2 Flow Rate FiO2 07/19/16 11:50 97.6 61 16 137/73 100 07/19/16 07:50 96.4 84 16 116/67 100 07/19/16 05:25 96.0 80 16 109/62 100 07/19/16 00:00 96.2 89 16 109/85 99 07/18/16 20:09 73 07/18/16 20:00 96.3 81 16 97/71 100 07/18/16 16:00 97.0 66 16 96/69 98 Laboratory Tests Test 07/19/16 06:00 Sodium Level 145 MEQ/L Potassium Level 4.1 MEQ/L Chloride Level 108 MEQ/L Carbon Dioxide Level 30.2 MEQ/L Anion Gap 7 MEQ/L Blood Urea Nitrogen 6 MG/DL Creatinine 0.58 MG/DL Estimat Glomerular Filtration 209 ML/MIN Rate Random Glucose 95 MG/DL Calcium Level 9.3 MG/DL Susy Figueredo MD Jul 19, 2016 13:36
--- NOTE | 2016-07-19 14:58 | HHI.GIFU ---
Subjective Remarks Resting in bed. No distress. Objective Vitals I&O Vital Signs Date Time Temp Pulse Resp B/P Pulse Ox O2 Delivery O2 Flow Rate FiO2 07/19/16 11:50 97.6 61 16 137/73 100 07/19/16 07:50 96.4 84 16 116/67 100 07/19/16 05:25 96.0 80 16 109/62 100 07/19/16 00:00 96.2 89 16 109/85 99 07/18/16 20:09 73 07/18/16 20:00 96.3 81 16 97/71 100 07/18/16 16:00 97.0 66 16 96/69 98 I/O 07/18/16 07/18/16 07/18/16 07/19/16 07/19/16 07/19/16 07:00 15:00 23:00 07:00 15:00 23:00 Intake Total 1170 ml 1290 ml 200 ml 0 ml Output Total 450 ml 1150 ml 400 ml 300 ml Balance 720 ml 140 ml -200 ml -300 ml Intake Oral 0 ml 0 ml IV Total 660 ml 670 ml Tube Feeding 390 ml 420 ml Other 120 ml 200 ml 200 ml Output Urine Total 450 ml 1150 ml 400 ml 300 ml # Bowel Movements 0 0 0 Laboratory Laboratory Tests Test 07/19/16 06:00 Sodium Level 145 Potassium Level 4.1 Chloride Level 108 Carbon Dioxide Level 30.2 Anion Gap 7 Blood Urea Nitrogen 6 Creatinine 0.58 Estimat Glomerular Filtration 209 Rate Random Glucose 95 Calcium Level 9.3 Imaging Last Impressions Lower Extremity Ultrasound 07/16/16 0000 Signed Impressions: Service Date/Time: Saturday, July 16, 2016 13:59 - CONCLUSION: Negative for deep venous thrombosis. Raman Marshall MD FACR Head CT 07/16/16 0000 Signed Impressions: Service Date/Time: Sunday, July 17, 2016 09:11 - CONCLUSION: Pronounced hydrocephalus. Chronic appearing parenchymal changes. Donaldo Berger MD Chest X-Ray 07/16/16 0000 Signed Impressions: Service Date/Time: Saturday, July 16, 2016 04:00 - CONCLUSION: No acute disease. Jose Alba Jr., MD Gall Bladder Ultrasound 07/14/16 0909 Signed Impressions: Service Date/Time: Thursday, July 14, 2016 09:33 - CONCLUSION: Negative for gallstones. Raman Marshall MD FACR Abdomen/Pelvis CT 07/14/16 0000 Signed Impressions: Service Date/Time: Thursday, July 14, 2016 15:46 - CONCLUSION: 1. Patchy left lower lung infiltrates. 2. PEG tube in good position. 3. Moderate severity constipation. 4. No evidence of abscess. Jose Velasquez MD Physical Exam HEENT: Normocephalic; atraumatic; no jaundice. CHEST: CTA, diminished CARDIAC: RRR ABDOMEN: Soft, nondistended, no hepatosplenomegaly; bowel sounds are present in all four quadrants. 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 Pt was brought to ER for evaluation of fever of 102, workup negative other than left lower lung infiltrate. Abdomen/Pelvis CT (07/14/16)----> 1. Patchy left lower lung infiltrates. 2. PEG tube in good position. 3. Moderate severity constipation. 4. No evidence of abscess. Gall Bladder Ultrasound (07/14/16)--- -> Negative for gallstones. Does not appear to have abdominal tenderness. Unclear if there is any hx of liver disease. Of note, he is on Keppra and Zosyn. Hepatitis panel negative, TITUS negative, AMA pending, ASMA negative, Iron Saturation 34.5%, Ferritin 93, AFP 3.9, Alpha 1 Antitrypsin 147. Ceruloplasmin pending. T. Bili 0.3, AST 50, ALT 101, Alk Phosph 97. - Constipation. + BM. Lactulose. - Fever, Pneumonia. CXR unremarkable, but left lower lobe infiltrates noted on CT scan. BCx no growth 48 hours, FLU A/B neg, Urine Cx negative x 48 hours. Zosyn, Levaquin. - Hx TBI. Per primary PLAN: - Cont. TF - Await AMA, Ceruloplasmin - Monitor LFT - Suspect LFT derangement is secondary to medications (? Keprra/Zosyn) vs. infection. No signs of gallbladder disease on US or CT. - Monitor LFTs closely while on Zosyn. - Supportive care - Further recommendations to follow based on results of above - Pt seen and examined by Dr. Ulloa and myself and this note is written on his behalf Licha Michelle Jul 19, 2016 14:58
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
[2016-07-19] MEDS: POLYETHYLENE GLYCOL 17 GM PKG G-TUBE SCH (21:00)
[2016-07-20] VITALS (9 sets, daily range): BP systolic 91–110; BP diastolic 51–69; PULSE 64–81; RESP 16–18; TEMP 95.7–97.5; O2SAT 96–100
[2016-07-20] MEDS: HEPARIN SODIUM - SQ 10,000 UNITS/ML VIAL SQ SCH ×2 (04:48→12:35)
--- NOTE | 2016-07-20 06:34 | HHI.PR ---
Addendum to Inpatient Note Addendum Reason: Additional Documentation Additional Information S: Resident team received [facility] page at 5:51 AM. Resident team [facility]. Per nurse report, patient was exhibiting altered mental status. Patient is a 25-year-old male with a history of TBI and seizure disorder who at baseline can track with his eyes. However, per nurse report, patient was not opening his eyes, vomited on himself , not tracking with his eyes. By the time resident team arrived to [facility], nurse reported the patient was back to baseline. O: Vitals: Blood pressure 110/66, pulse 69, Pulse ox satting 100% on room air Gen: Patient with significant cognitive deficits lying in bed in no acute distress. Nurses were cleaning him up after he defecated on himself. HEENT: Patient tracking objects with his eyes, drooling Cardiac vascular: Regular rate and rhythm, normal S1 and S2, no murmurs or gallops Respiratory: Clear to auscultation bilaterally in anterior lung foster Abdomen: Positive active bowel sounds, soft, nontender nondistended Extremities: No calf tenderness A/P: 25-year-old male patient with a history of TBI and seizure disorder and BEHAVIORAL HEALTH CASE MANAGER shunt who is admitted for sepsis had [facility] called for altered mental status. Differential diagnoses includes seizure versus sleep versus sepsis versus pna versus hydrocephalus. CBC, CMP, lactic acid Chest x-ray [facility] Patient seen and discussed with Dr. Amrit Tolliver. Amrit Alvarez MD R1 Jul 20, 2016 06:34
--- NOTE | 2016-07-20 06:39 | RADRPT ---
EXAM DATE/TIME: 07/20/2016 05:58 [place] COMPARISON: CHEST SINGLE AP, July 16, 2016, 4:00. INDICATIONS : Shortness of breath. HALICAT. MEDICAL HISTORY : Hypertension. SURGICAL HISTORY : None. ENCOUNTER: Subsequent ACUITY: 1 week PAIN SCORE: Non-responsive. LOCATION: chest FINDINGS: The lungs are clear without infiltrate, nodule, or mass. There is no appreciable pleural effusion fo r technique. Heart and mediastinum are unremarkable. CONCLUSION: No acute cardiopulmonary disease. Anna Reina MD on July 20, 2016 at 6:37 Board Certified Radiologist. This report was verified electronically.
[2016-07-20 07:58] LABS: INDIRECT BILIRUBIN 0.1 MG/DL (0.0-0.8); TOTAL BILIRUBIN ADULT 0.2 MG/DL (0.2-1.0)
[2016-07-20] MEDS: CYCLOBENZAPRINE HCL 10 MG TAB G-TUBE SCH ×3 (08:23→17:48)
[2016-07-20] MEDS: levETIRAcetam 500 MG/5 ML UDC G-TUBE SCH ×3 (08:23→17:48)
[2016-07-20] MEDS: ASPIRIN 81 MG CHEW TAB G-TUBE SCH (08:24)
[2016-07-20] MEDS: CALCIUM/VITAMIN D 250 MG/125 U TAB G-TUBE SCH (08:24)
[2016-07-20] MEDS: LACTULOSE SYRUP 20 GM/30 ML CUP PO SCH (08:25)
[2016-07-20] MEDS: SODIUM CHLORIDE 0.9% FLUSH 10 ML FLUSH IV FLUSH SCH (08:26)
[2016-07-20 08:51] LABS: AUTOMATED NEUTROPHIL # 1.9 TH/MM3 (1.8-7.7); BASOPHIL % 0.4 % (0.0-2.0); EOSINOPHIL # 0.2 TH/MM3 (0-0.4); EOSINOPHIL % 4.4 % (0.0-4.0); HEMATOCRIT 38.9 % (39.0-51.0); HEMO FLAGS DIFF FINAL; LYMPH % 52.1 % (9.0-44.0); LYMPHOCYTE # 2.7 TH/MM3 (1.0-4.8); MEAN CELL VOLUME 95.3 FL (80.0-100.0); MEAN CORPUSCULAR HEMOGLOBIN 31.5 PG (27.0-34.0); MEAN CORPUSCULAR HGB CONC 33.1 % (32.0-36.0); MONO % 6.2 % (0.0-8.0); NEUT % 36.9 % (16.0-70.0); PLATELET COUNT 202 TH/MM3 (150-450); RED BLOOD COUNT 4.08 MIL/MM3 (4.50-5.90); WHITE BLOOD COUNT 5.2 TH/MM3 (4.0-11.0)
[2016-07-20 09:01] LABS: ANION GAP 6 MEQ/L (5-15); AST (GOT) 171 U/L (15-37); BICARBONATE 29.1 MEQ/L (21.0-32.0); BLOOD UREA NITROGEN 7 MG/DL (7-18); CHLORIDE 108 MEQ/L (98-107); GLOMERULAR FILTRATION RATE 248 ML/MIN (>89); POTASSIUM 3.8 MEQ/L (3.5-5.1); SODIUM (NA) 143 MEQ/L (136-145)
[2016-07-20 09:05] LABS: ALKALINE PHOSPHATASE 102 U/L (45-117); ALT (GPT) 299 U/L (12-78); TOTAL BILIRUBIN ADULT 0.2 MG/DL (0.2-1.0)
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
[2016-07-20 15:54] LABS: MITOCHONDRIAL ABS LESS THAN 20.0 U (())
[2016-07-21] VITALS: BP 113/71; PULSE 81; RESP 16; TEMP 96; O2SAT 100
[2016-07-21] MEDS: POLYETHYLENE GLYCOL 17 GM PKG G-TUBE SCH ×2 (00:01→20:16)
[2016-07-21] MEDS: HEPARIN SODIUM - SQ 10,000 UNITS/ML VIAL SQ SCH ×4 (00:02→20:23)
[2016-07-21] MEDS: SODIUM CHLORIDE 0.9% FLUSH 10 ML FLUSH IV FLUSH SCH ×3 (00:02→20:23)
[2016-07-21 04:00] VITALS: BP 87/57; PULSE 76; RESP 16; TEMP 97.6; O2SAT 99
[2016-07-21 08:00] VITALS: BP 96/52; PULSE 92; RESP 18; TEMP 95; O2SAT 100
[2016-07-21] MEDS: CYCLOBENZAPRINE HCL 10 MG TAB G-TUBE SCH ×4 (09:00→17:49)
[2016-07-21] MEDS: CALCIUM/VITAMIN D 250 MG/125 U TAB G-TUBE SCH ×2 (09:00→12:13)
[2016-07-21] MEDS: LACTULOSE SYRUP 20 GM/30 ML CUP PO SCH (09:00)
[2016-07-21] MEDS: ASPIRIN 81 MG CHEW TAB G-TUBE SCH ×2 (09:00→12:12)
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
[2016-07-21 12:00] VITALS: BP 97/61; PULSE 93; RESP 15; TEMP 97.4; O2SAT 100
[2016-07-21] MEDS: levETIRAcetam 500 MG/5 ML UDC G-TUBE SCH (12:13)
--- NOTE | 2016-07-21 14:30 | HHI.GIFU ---
Subjective Remarks Pt resting in bed. Nonverbal. Mother at bedside, says he has some constipation but had normal BM day before yesterday. Objective Vitals I&O Vital Signs Date Time Temp Pulse Resp B/P Pulse Ox O2 Delivery O2 Flow Rate FiO2 07/21/16 12:00 97.4 93 15 97/61 100 07/21/16 08:00 95.0 92 18 96/52 100 07/21/16 04:00 97.6 76 16 87/57 99 07/21/16 00:00 96.0 81 16 113/71 100 07/20/16 20:24 73 07/20/16 20:00 96.1 68 17 109/60 100 07/20/16 17:28 96.9 64 18 92/69 96 I/O 07/20/16 07/20/16 07/20/16 07/21/16 07/21/16 07/21/16 07:00 15:00 23:00 07:00 15:00 23:00 Intake Total 0 ml Output Total 1200 ml 900 ml 175 ml 150 ml Balance -1200 ml -900 ml -175 ml -150 ml Intake Oral 0 ml Output Urine Total 1200 ml 900 ml 175 ml 150 ml # Bowel Movements 1 Imaging Last Impressions Chest X-Ray 07/20/16 0000 Signed Impressions: Service Date/Time: Wednesday, July 20, 2016 05:58 - CONCLUSION: No acute cardiopulmonary disease. Anna Reina MD Lower Extremity Ultrasound 07/16/16 0000 Signed Impressions: Service Date/Time: Saturday, July 16, 2016 13:59 - CONCLUSION: Negative for deep venous thrombosis. Raman Marshall MD FACR Head CT 07/16/16 0000 Signed Impressions: Service Date/Time: Sunday, July 17, 2016 09:11 - CONCLUSION: Pronounced hydrocephalus. Chronic appearing parenchymal changes. Donaldo Berger MD Gall Bladder Ultrasound 07/14/16 0909 Signed Impressions: Service Date/Time: Thursday, July 14, 2016 09:33 - CONCLUSION: Negative for gallstones. Raman Marshall MD FACR Abdomen/Pelvis CT 07/14/16 0000 Signed Impressions: Service Date/Time: Thursday, July 14, 2016 15:46 - CONCLUSION: 1. Patchy left lower lung infiltrates. 2. PEG tube in good position. 3. Moderate severity constipation. 4. No evidence of abscess. Jose Velasquez MD Physical Exam HEENT: Normocephalic; atraumatic; no jaundice. CHEST: CTA, diminished CARDIAC: RRR ABDOMEN: Soft, nondistended, no hepatosplenomegaly; bowel sounds are present in all four quadrants. PEG tube site without redness or swelling EXTREMITIES: contractures RESEARCH EPIDEMIOLOGIST: Eyes open, nonverbal, does not follow commands Assessment and Plan Plan ASSESSMENT: - Elevated LFTs. Pt was brought to ER for evaluation of fever of 102, workup negative other than left lower lung infiltrate. Abdomen/Pelvis CT (07/14/16)----> 1. Patchy left lower lung infiltrates. 2. PEG tube in good position. 3. Moderate severity constipation. 4. No evidence of abscess. Gall Bladder Ultrasound (07/14/16)--- -> Negative for gallstones. Does not appear to have abdominal tenderness. Of note, he is on Keppra and Zosyn. Hepatitis panel negative, TITUS negative, AMA < 20.0, ASMA negative, Iron Saturation 34.5%, Ferritin 93, AFP 3.9, Alpha 1 Antitrypsin 147. Ceruloplasmin WNL. T. Bili 0.2, AST 171, ALT 299, Alk Phosph 102. EBV? - Constipation. + BM. Lactulose. PLAN: - Cont. TF - Suspect LFT derangement is secondary to medications (? Keprra/Zosyn) vs. infection. No signs of gallbladder disease on US or CT, lab results do not indicate Alexsander's, auto immune cause. - Monitor LFTs closely while on Zosyn - Supportive care - Pt seen and examined by Dr. Tucker and myself and this note is written on his behalf Carito Abrams [facility] Jul 21, 2016 14:30
[2016-07-21] MEDS: SODIUM CHLORIDE 0.9% IV SCH ×2 (15:29→22:00)
[2016-07-21] MEDS: LEVETIRACETAM IV SCH ×2 (15:29→22:00)
[2016-07-21 16:00] VITALS: BP 94/71; PULSE 91; RESP 20; TEMP 96.7; O2SAT 100
[2016-07-21] MEDS: D5-1/2 NS + KCL 20 MEQ INJ 1,000 ML IV SCH (17:50)
[2016-07-21 20:00] VITALS: BP 94/57; PULSE 85; PULSE 88; RESP 18; TEMP 98; O2SAT 97
[2016-07-21] MEDS ORDERED: GLUCAGON 1 MG/ML VIAL OTHER PRN (23:00)
[2016-07-21] MEDS: DEXTROSE 50% IN WATER 50 ML VIAL(D50) IV PUSH PRN (23:22)
[2016-07-22] VITALS: BP 100/58; PULSE 83; RESP 19; TEMP 98.1; O2SAT 98
[2016-07-22] MEDS: D5-1/2 NS + KCL 20 MEQ INJ 1,000 ML IV SCH ×4 (02:55→23:39)
[2016-07-22] MEDS: HEPARIN SODIUM - SQ 10,000 UNITS/ML VIAL SQ SCH ×4 (03:00→23:34)
[2016-07-22 04:49] VITALS: BP 102/57; PULSE 80; RESP 18; TEMP 96.8; O2SAT 100
[2016-07-22] MEDS: SODIUM CHLORIDE 0.9% IV SCH ×3 (05:42→22:07)
[2016-07-22] MEDS: LEVETIRACETAM IV SCH ×3 (05:42→22:07)
[2016-07-22 08:00] VITALS: BP 98/68; PULSE 69; RESP 16; TEMP 97.6; O2SAT 99
[2016-07-22 08:06] LABS: ALKALINE PHOSPHATASE 101 U/L (45-117); ALT (GPT) 308 U/L (12-78); ANION GAP 6 MEQ/L (5-15); AST (GOT) 121 U/L (15-37); BICARBONATE 28.7 MEQ/L (21.0-32.0); BLOOD UREA NITROGEN 7 MG/DL (7-18); CHLORIDE 107 MEQ/L (98-107); GLOMERULAR FILTRATION RATE 222 ML/MIN (>89); POTASSIUM 3.8 MEQ/L (3.5-5.1); SODIUM (NA) 142 MEQ/L (136-145); TOTAL BILIRUBIN ADULT 0.3 MG/DL (0.2-1.0)
--- NOTE | 2016-07-22 08:19 | HHI.PR ---
Subjective Remarks Follow-up febrile illness, mental status change. PEG tube has stopped working. Gastroenterology notified. Tube feeds on hold. Patient has had hypoglycemic episodes. Objective Vitals Vital Signs Date Time Temp Pulse Resp B/P Pulse Ox O2 Delivery O2 Flow Rate FiO2 07/22/16 04:49 96.8 80 18 102/57 100 07/22/16 00:00 98.1 83 19 100/58 98 07/21/16 20:00 98.0 85 18 94/57 97 07/21/16 20:00 88 07/21/16 16:00 96.7 91 20 94/71 100 07/21/16 12:00 97.4 93 15 97/61 100 I/O 07/21/16 07/21/16 07/21/16 07/22/16 07/22/16 07/22/16 07:00 15:00 23:00 07:00 15:00 23:00 Intake Total 0 ml Output Total 150 ml 250 ml 300 ml 350 ml Balance -150 ml -250 ml -300 ml -350 ml Intake Oral 0 ml Output Urine Total 150 ml 250 ml 300 ml 350 ml Result Diagram: 07/20/16 0838 07/22/16 0721 Imaging Last Impressions Chest X-Ray 07/20/16 0000 Signed Impressions: Service Date/Time: Wednesday, July 20, 2016 05:58 - CONCLUSION: No acute cardiopulmonary disease. Anna Reina MD Lower Extremity Ultrasound 07/16/16 0000 Signed Impressions: Service Date/Time: Saturday, July 16, 2016 13:59 - CONCLUSION: Negative for deep venous thrombosis. Raman Marshall MD FACR Head CT 07/16/16 0000 Signed Impressions: Service Date/Time: Sunday, July 17, 2016 09:11 - CONCLUSION: Pronounced hydrocephalus. Chronic appearing parenchymal changes. Donaldo Berger MD Gall Bladder Ultrasound 07/14/16 0909 Signed Impressions: Service Date/Time: Thursday, July 14, 2016 09:33 - CONCLUSION: Negative for gallstones. Raman Marshall MD FACR Abdomen/Pelvis CT 07/14/16 0000 Signed Impressions: Service Date/Time: Thursday, July 14, 2016 15:46 - CONCLUSION: 1. Patchy left lower lung infiltrates. 2. PEG tube in good position. 3. Moderate severity constipation. 4. No evidence of abscess. Jose Velasquez MD Objective Remarks General: No acute distress. Heart: Regular rate and rhythm. No murmur. Lungs: Clear to auscultation bilaterally. No wheezes, rales, or rhonchi. Breathing is nonlabored. Abdomen: Soft, nontender, nondistended. Extremities: No lower extremity edema. Psych: Nonverbal. Does not follow commands. Does not track. Procedures None Urinary Catheter: Yes Assessment to: Continue Vascular Central Line Catheter: No A/P Problem List: (1) Sepsis ICD Code: A41.9 Status: Acute (2) Pneumonia ICD Code: J18.9 Status: Acute (3) PEG tube malfunction ICD Code: K94.23 Status: Acute (4) Hypoglycemia ICD Code: E16.2 Status: Acute Assessment and Plan 1. Febrile illness, possible pneumonia/sepsis: Appreciate infectious disease recommendations. Blood cultures are negative. Patient remains afebrile. Antibiotics discontinued. 2. Lactic acidosis: Improved. 3. Chronic hydrocephalus: Discussed with neurosurgery yesterday. Planning shunt revision on Saturday. 4. Poor overall prognosis: Appreciate palliative care. Goals remain aggressive. 5. Severe constipation: Continue bowel regimen. 6. Electrolyte abnormalities: Continue IV fluids. Monitor labs. 7. Elevated LFTs: Trending up. Appreciate GI recommendations. Hepatitis panel is negative. 8. DVT prophylaxis: Subcutaneous heparin. 9. History of traumatic brain injury 10. Seizure disorder: Continue Keppra. 11. PEG tube malfunction: Gastroenterology notified. Tube feeds on hold. Continue IV fluids. 12. Hypoglycemia: Continue D5 in IV fluids. Monitor glucose. Fabián Castillo MD Jul 22, 2016 08:19
[2016-07-22] MEDS: ASPIRIN 81 MG CHEW TAB G-TUBE SCH (09:00)
[2016-07-22] MEDS: SODIUM CHLORIDE 0.9% FLUSH 10 ML FLUSH IV FLUSH SCH ×2 (09:00→19:39)
[2016-07-22] MEDS: CYCLOBENZAPRINE HCL 10 MG TAB G-TUBE SCH ×4 (09:00→17:34)
[2016-07-22] MEDS: CALCIUM/VITAMIN D 250 MG/125 U TAB G-TUBE SCH (09:00)
[2016-07-22] MEDS: LACTULOSE SYRUP 20 GM/30 ML CUP PO SCH (09:00)
[2016-07-22 12:00] VITALS: BP 97/56; PULSE 73; RESP 18; TEMP 96.3; O2SAT 99
--- NOTE | 2016-07-22 13:40 | HHI.GIFU ---
Subjective Remarks no change, patient's PEG tube in not working, Objective Vitals I&O Vital Signs Date Time Temp Pulse Resp B/P Pulse Ox O2 Delivery O2 Flow Rate FiO2 07/22/16 12:00 96.3 73 18 97/56 99 07/22/16 08:00 97.6 69 16 98/68 99 07/22/16 04:49 96.8 80 18 102/57 100 07/22/16 00:00 98.1 83 19 100/58 98 07/21/16 20:00 98.0 85 18 94/57 97 07/21/16 20:00 88 07/21/16 16:00 96.7 91 20 94/71 100 I/O 07/21/16 07/21/16 07/21/16 07/22/16 07/22/16 07/22/16 07:00 15:00 23:00 07:00 15:00 23:00 Intake Total 0 ml Output Total 150 ml 250 ml 300 ml 350 ml Balance -150 ml -250 ml -300 ml -350 ml Intake Oral 0 ml Output Urine Total 150 ml 250 ml 300 ml 350 ml Laboratory Laboratory Tests Test 07/22/16 07:21 Sodium Level 142 Potassium Level 3.8 Chloride Level 107 Carbon Dioxide Level 28.7 Anion Gap 6 Blood Urea Nitrogen 7 Creatinine 0.55 Estimat Glomerular Filtration 222 Rate Random Glucose 110 Calcium Level 9.1 Total Bilirubin 0.3 Aspartate Amino Transf 121 (AST/SGOT) Alanine Aminotransferase 308 (ALT/SGPT) Alkaline Phosphatase 101 Total Protein 7.4 Albumin 3.1 Physical Exam HEENT: Normocephalic; atraumatic; no jaundice. CHEST: CTA, diminished CARDIAC: RRR ABDOMEN: Soft, nondistended, no hepatosplenomegaly; bowel sounds are present in all four quadrants. PEG tube site without redness or swelling, not flushing EXTREMITIES: contractures FISCAL ECONOMIST: Eyes open, nonverbal, does not follow commands Assessment and Plan Plan ASSESSMENT: - Elevated LFTs. Pt was brought to ER for evaluation of fever of 102, workup negative other than left lower lung infiltrate. Abdomen/Pelvis CT (07/14/16)----> 1. Patchy left lower lung infiltrates. 2. PEG tube in good position. 3. Moderate severity constipation. 4. No evidence of abscess. Gall Bladder Ultrasound (07/14/16)--- -> Negative for gallstones. Does not appear to have abdominal tenderness. Of note, he is on Keppra and Zosyn. Hepatitis panel negative, TITUS negative, AMA < 20.0, ASMA negative, Iron Saturation 34.5%, Ferritin 93, AFP 3.9, Alpha 1 Antitrypsin 147. Ceruloplasmin WNL. T. Bili 0.2, AST 171, ALT 299, Alk Phosph 102. EBV? - Constipation. + BM. Lactulose. 07-22-16 elevated LFts, still about the same, possibly meds related, W/U is negative so far, if continue to be elevated in few days, we may consider liver Bx if family wants that. PEG tube was not working (not flushing) we used brush and unclogged it. PLAN: - Cont. TF, pls try to flush routinely after meds and feeding - Suspect LFT derangement is secondary to medications (? Keprra/Zosyn) vs. infection. No signs of gallbladder disease on US or CT, lab results do not indicate Alexsander's, auto immune cause. possible liver Bx if continue to be elevated - Monitor LFTs closely while on Zosyn in am - Supportive care Suzette Tucker MD Jul 22, 2016 13:40
--- NOTE | 2016-07-22 15:41 | HHI.NSPN ---
History Chief Complaint: nonverbal Interval History 25-year-old male history of severe traumatic brain injury. He is in a persistent vegetative state Exam Results Vital Signs Date Time Temp Pulse Resp B/P Pulse Ox O2 Delivery O2 Flow Rate FiO2 07/22/16 12:00 96.3 73 18 97/56 99 Intake and Output 07/21/16 07/21/16 07/22/16 08:00 16:00 00:00 Intake Total 0 ml Output Total 150 ml 250 ml 300 ml Balance -150 ml -250 ml -300 ml Physical Examination Awake Tracks and focuses briefly to the left with disconjugate gaze. 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 Severe upper extremity and lower extremity contractures. What appears to be a palpable shunt tube over the cranium upon further examination of the patient's CT scan is the palpable edge of a poorly healed scalp flap with some erosion of the edge of the flap. The patient does not have a ventriculoperitoneal shunt. Medical Decision Making Impression and Plan Impression: Upon reevaluation of the patient's imaging studies and reexamination, he does not have a ventriculoperitoneal shunt. He has rather severe chronic-appearing hydrocephalus with bilateral encephalomalacia, which has significantly changed compared to previous CT scan report. His previous CT scan report from 2008 following replacement of the craniotomy bone flap, indicates mild increased hydrocephalus with extensive decreased density in the parenchyma of both hemispheres consistent with laminar necrosis. The ventriculomegaly seen on present CT scan may simply be a result of severe myelomalacia from previous traumatic brain injury. The ASSISTANT SPA MANAGER shunt placement may be problematic in this patient due to the increased risk of infection and possible development of subdural hematoma or hygroma with significant CSF drainage. We will discuss further with the patient's mother. Leif Champagne MD Jul 22, 2016 15:41
[2016-07-22 17:00] VITALS: BP 97/61; PULSE 64; RESP 18; TEMP 95.9; O2SAT 99
[2016-07-22] MEDS: POLYETHYLENE GLYCOL 17 GM PKG G-TUBE SCH (19:39)
[2016-07-22 20:00] VITALS: BP 97/56; PULSE 79; PULSE 80; RESP 18; TEMP 96.1; O2SAT 99
[2016-07-23] VITALS (7 sets, daily range): BP systolic 94–118; BP diastolic 53–69; PULSE 64–82; RESP 15–19; TEMP 96.7–97.6; O2SAT 98–100
[2016-07-23] MEDS: LEVETIRACETAM IV SCH ×3 (06:30→21:41)
[2016-07-23] MEDS: SODIUM CHLORIDE 0.9% IV SCH ×3 (06:30→21:41)
[2016-07-23 07:13] LABS: ALT (GPT) 257 U/L (12-78); AST (GOT) 81 U/L (15-37)
[2016-07-23 07:15] LABS: ALKALINE PHOSPHATASE 96 U/L (45-117); INDIRECT BILIRUBIN 0.1 MG/DL (0.0-0.8); TOTAL BILIRUBIN ADULT 0.2 MG/DL (0.2-1.0)
--- NOTE | 2016-07-23 08:50 | HHI.PR ---
Subjective Remarks Follow up febrile illness, mental status change. No changes reported overnight. PEG tube now working again. Objective Vitals Vital Signs Date Time Temp Pulse Resp B/P Pulse Ox O2 Delivery O2 Flow Rate FiO2 07/23/16 04:00 97.2 82 19 94/53 99 07/23/16 00:00 96.7 79 19 110/63 98 07/22/16 20:00 79 07/22/16 20:00 96.1 80 18 97/56 99 07/22/16 17:00 95.9 64 18 97/61 99 07/22/16 12:00 96.3 73 18 97/56 99 I/O 07/22/16 07/22/16 07/22/16 07/23/16 07/23/16 07/23/16 07:00 15:00 23:00 07:00 15:00 23:00 Intake Total 0 ml 1210 ml 1381 ml Output Total 350 ml 600 ml 1300 ml 400 ml Balance -350 ml -600 ml -90 ml -400 ml 1381 ml Intake Oral 0 ml IV Total 1210 ml 1381 ml Output Urine Total 350 ml 600 ml 1300 ml 400 ml Tube Feeding Residual Discard 0 ml Result Diagram: 07/20/16 0838 07/22/16 0721 Imaging Last Impressions Chest X-Ray 07/20/16 0000 Signed Impressions: Service Date/Time: Wednesday, July 20, 2016 05:58 - CONCLUSION: No acute cardiopulmonary disease. KRenetta Reina MD Lower Extremity Ultrasound 07/16/16 0000 Signed Impressions: Service Date/Time: Saturday, July 16, 2016 13:59 - CONCLUSION: Negative for deep venous thrombosis. Raman Marshall MD FACR Head CT 07/16/16 0000 Signed Impressions: Service Date/Time: Sunday, July 17, 2016 09:11 - CONCLUSION: Pronounced hydrocephalus. Chronic appearing parenchymal changes. Donaldo Berger MD Gall Bladder Ultrasound 07/14/16 0909 Signed Impressions: Service Date/Time: Thursday, July 14, 2016 09:33 - CONCLUSION: Negative for gallstones. Raman Marshall MD FACR Abdomen/Pelvis CT 07/14/16 0000 Signed Impressions: Service Date/Time: Thursday, July 14, 2016 15:46 - CONCLUSION: 1. Patchy left lower lung infiltrates. 2. PEG tube in good position. 3. Moderate severity constipation. 4. No evidence of abscess. Jose Velasquez MD Objective Remarks General: No acute distress. Heart: Regular rate and rhythm. No murmur. Lungs: Clear to auscultation bilaterally. No wheezes, rales, or rhonchi. Breathing is nonlabored. Abdomen: Soft, nontender, nondistended. Extremities: No lower extremity edema. Psych: Sleeping. Does not respond to verbal stimuli. Procedures None Urinary Catheter: Yes Assessment to: Continue Donald insert reason: Prolonged Immobilization Vascular Central Line Catheter: No A/P Problem List: (1) Sepsis ICD Code: A41.9 Status: Acute (2) Pneumonia ICD Code: J18.9 Status: Acute (3) PEG tube malfunction ICD Code: K94.23 Status: Acute (4) Hypoglycemia ICD Code: E16.2 Status: Acute Assessment and Plan 1. Febrile illness, possible pneumonia/sepsis: Appreciate infectious disease recommendations. Blood cultures are negative. Patient remains afebrile. Antibiotics discontinued. 2. Lactic acidosis: Improved. 3. Hydrocephalus: Discussed with neurosurgery yesterday. Possible surgical intervention today. ?shunt 4. Poor overall prognosis: Appreciate palliative care. Goals remain aggressive. 5. Severe constipation: Continue bowel regimen. 6. Electrolyte abnormalities: Continue IV fluids. Monitor labs. 7. Elevated LFTs: Trending down. Appreciate GI recommendations. Hepatitis panel is negative. 8. DVT prophylaxis: Subcutaneous heparin. 9. History of traumatic brain injury 10. Seizure disorder: Continue Keppra. 11. PEG tube malfunction: Resolved. Appreciate GI assistance. Tube feeds now on hold for possible surgical procedure. 12. Hypoglycemia: Continue D5 in IV fluids. Monitor glucose. Fabián Castillo MD Jul 23, 2016 08:49
[2016-07-23] MEDS: LACTULOSE SYRUP 20 GM/30 ML CUP PO SCH (09:00)
[2016-07-23] MEDS: SODIUM CHLORIDE 0.9% FLUSH 10 ML FLUSH IV FLUSH SCH (09:00)
--- NOTE | 2016-07-23 09:04 | HHI.GIFU ---
Subjective Remarks Resting in bed, nonverbal. No distress. NPO for possible procedure today with NSx. (Licha Michelle) Objective Vitals I&O Vital Signs Date Time Temp Pulse Resp B/P Pulse Ox O2 Delivery O2 Flow Rate FiO2 07/23/16 04:00 97.2 82 19 94/53 99 07/23/16 00:00 96.7 79 19 110/63 98 07/22/16 20:00 79 07/22/16 20:00 96.1 80 18 97/56 99 07/22/16 17:00 95.9 64 18 97/61 99 07/22/16 12:00 96.3 73 18 97/56 99 I/O 07/22/16 07/22/16 07/22/16 07/23/16 07/23/16 07/23/16 07:00 15:00 23:00 07:00 15:00 23:00 Intake Total 0 ml 1210 ml 1381 ml Output Total 350 ml 600 ml 1300 ml 400 ml Balance -350 ml -600 ml -90 ml -400 ml 1381 ml Intake Oral 0 ml IV Total 1210 ml 1381 ml Output Urine Total 350 ml 600 ml 1300 ml 400 ml Tube Feeding Residual Discard 0 ml Laboratory Laboratory Tests Test 07/23/16 06:10 Total Bilirubin 0.2 Direct Bilirubin LESS THAN 0.1 Indirect Bilirubin 0.1 Aspartate Amino Transf 81 (AST/SGOT) Alanine Aminotransferase 257 (ALT/SGPT) Alkaline Phosphatase 96 Total Protein 7.1 Albumin 3.0 Imaging Last Impressions Chest X-Ray 07/20/16 0000 Signed Impressions: Service Date/Time: Wednesday, July 20, 2016 05:58 - CONCLUSION: No acute cardiopulmonary disease. KRenetta Reina MD Lower Extremity Ultrasound 07/16/16 0000 Signed Impressions: Service Date/Time: Saturday, July 16, 2016 13:59 - CONCLUSION: Negative for deep venous thrombosis. Raman Marshall MD FACR Head CT 07/16/16 0000 Signed Impressions: Service Date/Time: Sunday, July 17, 2016 09:11 - CONCLUSION: Pronounced hydrocephalus. Chronic appearing parenchymal changes. Donaldo Berger MD Gall Bladder Ultrasound 07/14/16 0909 Signed Impressions: Service Date/Time: Thursday, July 14, 2016 09:33 - CONCLUSION: Negative for gallstones. Raman Marshall MD FACR Abdomen/Pelvis CT 07/14/16 0000 Signed Impressions: Service Date/Time: Thursday, July 14, 2016 15:46 - CONCLUSION: 1. Patchy left lower lung infiltrates. 2. PEG tube in good position. 3. Moderate severity constipation. 4. No evidence of abscess. Jose Velasquez MD Physical Exam HEENT: Normocephalic; atraumatic; no jaundice. CHEST: CTA, diminished CARDIAC: RRR ABDOMEN: Soft, nondistended, no hepatosplenomegaly; bowel sounds are present in all four quadrants. PEG tube site without redness or swelling, not flushing EXTREMITIES: contractures LINOTYPE MECHANIC: Eyes open, nonverbal, does not follow commands (Licha Michelle) Assessment and Plan Plan ASSESSMENT: - Elevated LFTs. Pt was brought to ER for evaluation of fever of 102, workup negative other than left lower lung infiltrate. Abdomen/Pelvis CT (07/14/16)----> 1. Patchy left lower lung infiltrates. 2. PEG tube in good position. 3. Moderate severity constipation. 4. No evidence of abscess. Gall Bladder Ultrasound (07/14/16)----> Negative for gallstones. Does not appear to have abdominal tenderness. Of note, he is on Keppra and was receiving Zosyn (which was discontinued on 07/19) . Hepatitis panel negative, TITUS negative, AMA < 20.0, ASMA negative, Iron Saturation 34.5%, Ferritin 93, AFP 3.9, Alpha 1 Antitrypsin 147. Ceruloplasmin 19. LFTs now trending down, T. Bili 0.2 , AST 81, ALT 257, Alk Phosph 96. Likely this is medication induced. ? Keppra. - Constipation. + BM - Fever, CXR unremarkable, but left lower lobe infiltrates noted on CT scan. BCx no growth 5 days, FLU A/B neg, Urine Cx negative x 48 hours. Off abx. - Hx TBI, chronic appearing hydrocephalus with bilateral encephalomalacia. NSx following. NPO for possible procedure. PLAN: - NPO for possible procedure with NSx - Monitor LFTs - Suspect that his liver enzyme derangement is secondary to medications, ? Keppra. Was also on Zosyn, although this was stopped on 07/19. LFTs are now trending down. If worsening of liver enzymes, consider liver biopsy. - Supportive care - Pt seen and examined by Dr. Tucker and myself and this note is written on his behalf (Licha Michelle) Physician Comments patient was seen and examined, agrees with above notes, LFTS is better today, we will FU levels. (Suzette Tucker MD) Licha Michelle Jul 23, 2016 09:04 Suzette Tucker MD Jul 23, 2016 15:37
[2016-07-23] MEDS ORDERED: ONDANSETRON HCL 4 MG/2 ML VIAL IV PUSH ONE (10:10)
[2016-07-23] MEDS ORDERED: LACTATED RINGER'S 1000 ML INJ 1,000 ML IV ONE (10:10)
[2016-07-23] MEDS ORDERED: PROPOFOL 200 MG/20 ML AMP IV ONE (10:10)
[2016-07-23] MEDS ORDERED: NEOSTIGMINE 3 MG/3 ML SYR IV ONE (10:10)
[2016-07-23] MEDS ORDERED: ePHEDrine/NS 25 MG/5 ML SYR IV ONE (10:10)
[2016-07-23] MEDS: CYCLOBENZAPRINE HCL 10 MG TAB G-TUBE SCH ×3 (10:21→18:00)
[2016-07-23] MEDS: CALCIUM/VITAMIN D 250 MG/125 U TAB G-TUBE SCH (10:21)
[2016-07-23] MEDS: D5-1/2 NS + KCL 20 MEQ INJ 1,000 ML IV SCH ×2 (10:22→19:34)
[2016-07-23] MEDS ORDERED: PHENYLEPH/NS 1000 MCG/10 ML SYR IV ONE (12:00)
[2016-07-23] MEDS: HEPARIN SODIUM - SQ 10,000 UNITS/ML VIAL SQ SCH ×2 (13:34→20:00)
[2016-07-23] MEDS ORDERED: THROMBIN (TOPICAL) 5,000 UNIT VIAL ONE (15:45)
[2016-07-23] MEDS ORDERED: LIDOCAINE 1%/EPINEPHrine 1:100,000 SOLN 50 ML VIAL ONE (15:45)
[2016-07-23] MEDS ORDERED: GELFOAM SIZE 100 ONE (15:45)
[2016-07-23] MEDS ORDERED: GENTAMICIN SULFATE 80 MG/2 ML VIAL ONE (15:46)
[2016-07-23] MEDS ORDERED: ceFAZolin INJ 1,000 MG VIAL IV ONE (16:41)
[2016-07-23] MEDS ORDERED: VANCOMYCIN HCL 1000 MG VIAL ONE (17:01)
[2016-07-23] MEDS ORDERED: SODIUM CHLORIDE 0.9% FLUSH 5 ML FLUSH IVF PRN (18:45)
[2016-07-23] MEDS ORDERED: fentaNYL CITRATE 250 MCG/5 ML AMP ONE (18:52)
[2016-07-23] MEDS ORDERED: DO NOT ADM ANY ANTICOAGULANT DRUGS PRN (19:00)
--- NOTE | 2016-07-23 19:29 | PD.OP ---
Operative Report Date of Surgery: Jul 23, 2016 Preoperative Diagnosis: (1) Hydrocephalus 1. Hydrocephalus 2. Status post traumatic brain injury Postoperative Diagnosis: (1) Hydrocephalus 1. Hydrocephalus 2. Status post traumatic brain injury Procedure: Right frontal bur hole for placement of ventriculoperitoneal shunt Anesthesia: Gen. Surgeon: Leif Champagne Presidential Support Specialist(s): Amrit Goode Operation and Findings: Procedure in detail: The patient was brought into the operating room and general endotracheal anesthesia induced without difficulty. Donald catheter, and sequential compression devices were placed. Lines were established byr anesthesia. The patient was placed in the supine position on the 3080 table with the head turned towards the left on the horseshoe headrest. All extremities were appropriately padded The right side of the head, neck, chest, and abdomen were shaved with the clippers and sterilely prepped and draped. Appropriate procedure was performed with all personal present and in agreement 1% Xylocaine with epinephrine was used for local infiltration of the incision sites. The initial incision was made in a curvilinear fashion at the right frontal region approximately 3-4 cm lateral to the midline in the mid pupillary line and approximately 1 cm anterior to the coronal suture and carried sharply down to the cranium. The net mobile developer was used to place a small bur hole and the dura was incised with the 15 blade knife and edges coagulated with the bipolar forceps. Small incision was made in the cortical surface with the bipolar. The second incision was made at the right upper quadrant of the abdomen just below the costal margin and carried sharply down to the muscle fascia which was incised transversely and the muscle fiber split revealing the peritoneum which was grasped with mosquito forceps and incised with the 15 blade knife. The peritoneal cavity was freely entered with the [place] dissector. A 4-0 Nurolon pursestring suture was placed at the peritoneal incision. The shunt passer was used to pass the distal peritoneal catheter already attached to the distal shunt valve and secured with 2-0 silk suture from the frontal scalp incision to the abdominal incision via a small third right occipital scalp incision. The valve was preset to 160 mm water pressure prior to placement, with the setting verified with preoperative x-ray. The [place] Bactiseal ventricular catheter was then passed to a depth of approximately 6 cm intracranial with clear colorless cerebrospinal fluid obtained and a single pass. Specimen of CSF was collected. The ventricular catheter was cut to the appropriate length and secured to the proximal end of the valve with the 2-0 silk tie. After spontaneous CSF flow was noted through the distal peritoneal catheter, the abdominal catheter was cut to a length of approximately 15 cm intraperitoneal length and placed in the peritoneal cavity and pursestring suture secured. All incision sites were well irrigated with antibiotic irrigation. Closure was performed with 3-0 Vicryl running for the abdominal muscle fascia and interrupted for the abdominal subcutaneous closure and scalp galeal closure. The scalp was closed with 4-0 nylon running suture with 4-0 Vicryl running for the abdominal subcuticular closure. A dressing of sterile Mastisol and Steri- Strips was placed at each incision site. The patient was taken to recovery room in stable condition. All counts were correct at the end of the case. Estimated blood loss was 100 cc Specimen of CSF was sent for routine microbiology. Leif Champagne MD Jul 23, 2016 19:28
[2016-07-23] MEDS: SODIUM CHLORIDE 0.9% FLUSH 5 ML FLUSH IVF SCH (20:10)
[2016-07-23 21:40] LABS: GROSS BLOOD TUBE #1 0 (0); SUPERNATE COLOR TUBE #1 CLEAR (CLEAR)
[2016-07-23 21:41] LABS: CSF LYMPHOCYTES 0 %; CSF NEUTROPHILS 0 %; WBC TUBE #1 0 /MM3 (0-10)
[2016-07-23] MEDS: POLYETHYLENE GLYCOL 17 GM PKG G-TUBE SCH (21:41)
[2016-07-24] VITALS (8 sets, daily range): BP systolic 120–138; BP diastolic 59–74; PULSE 69–100; RESP 16–18; TEMP 94.6–98.4; O2SAT 98–100
[2016-07-24] MEDS: HEPARIN SODIUM - SQ 10,000 UNITS/ML VIAL SQ SCH ×3 (03:22→20:55)
[2016-07-24] MEDS: SODIUM CHLORIDE 0.9% IV SCH (06:06)
[2016-07-24] MEDS: LEVETIRACETAM IV SCH (06:06)
[2016-07-24 07:07] LABS: AUTOMATED NEUTROPHIL # 4.8 TH/MM3 (1.8-7.7); BASOPHIL % 0.2 % (0.0-2.0); EOSINOPHIL # 0.1 TH/MM3 (0-0.4); EOSINOPHIL % 1.9 % (0.0-4.0); HEMATOCRIT 36.7 % (39.0-51.0); HEMO FLAGS DIFF FINAL; LYMPH % 17.2 % (9.0-44.0); LYMPHOCYTE # 1.2 TH/MM3 (1.0-4.8); MEAN CELL VOLUME 95.5 FL (80.0-100.0); MEAN CORPUSCULAR HEMOGLOBIN 31.9 PG (27.0-34.0); MEAN CORPUSCULAR HGB CONC 33.4 % (32.0-36.0); MONO % 12.6 % (0.0-8.0); NEUT % 68.1 % (16.0-70.0); PLATELET COUNT 195 TH/MM3 (150-450); RED BLOOD COUNT 3.85 MIL/MM3 (4.50-5.90); RED CELL DISTRIBUTION WIDTH 13.2 % (11.6-17.2); WHITE BLOOD COUNT 7.1 TH/MM3 (4.0-11.0)
[2016-07-24 07:16] LABS: BICARBONATE 28.3 MEQ/L (21.0-32.0); POTASSIUM 4.1 MEQ/L (3.5-5.1)
--- NOTE | 2016-07-24 07:55 | HHI.PR ---
Subjective Remarks Follow up mental status changes, febrile illness. 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 Going for follow up CT now. No events reported overnight by nursing. Objective Vitals Vital Signs Date Time Temp Pulse Resp B/P Pulse Ox O2 Delivery O2 Flow Rate FiO2 07/24/16 05:00 96.9 77 16 123/59 100 07/24/16 00:00 96.8 69 16 123/70 07/23/16 20:50 71 07/23/16 20:30 96.8 73 16 118/55 100 07/23/16 19:45 97.3 68 14 112/52 100 Nasal Cannula 2 07/23/16 19:30 67 16 104/51 100 Nasal Cannula 2 07/23/16 19:15 71 15 106/52 100 Nasal Cannula 2 07/23/16 19:00 75 14 101/48 99 Nasal Cannula 2 07/23/16 18:40 97.1 80 15 81/45 95 Simple Mask 6 07/23/16 12:30 97.6 68 16 94/54 100 07/23/16 10:00 97.5 72 15 98/69 100 07/23/16 08:00 64 I/O 07/23/16 07/23/16 07/23/16 07/24/16 07/24/16 07/24/16 07:00 15:00 23:00 07:00 15:00 23:00 Intake Total 1381 ml 1200 ml Output Total 400 ml 900 ml 2575 ml 575 ml Balance -400 ml 481 ml -1375 ml -575 ml Intake Oral 0 ml IV Total 1381 ml Other 1200 ml Output Urine Total 400 ml 900 ml 575 ml 575 ml Estimated Blood Loss 100 ml Other 1900 ml Result Diagram: 07/24/1623 07/24/1623 Imaging Last Impressions Chest X-Ray 07/20/16 0000 Signed Impressions: Service Date/Time: Wednesday, July 20, 2016 05:58 - CONCLUSION: No acute cardiopulmonary disease. Anna Reina MD Lower Extremity Ultrasound 07/16/16 0000 Signed Impressions: Service Date/Time: Saturday, July 16, 2016 13:59 - CONCLUSION: Negative for deep venous thrombosis. Raman Marshall MD FACR Head CT 07/16/16 0000 Signed Impressions: Service Date/Time: Sunday, July 17, 2016 09:11 - CONCLUSION: Pronounced hydrocephalus. Chronic appearing parenchymal changes. Donaldo Berger MD Gall Bladder Ultrasound 07/14/16 0909 Signed Impressions: Service Date/Time: Thursday, July 14, 2016 09:33 - CONCLUSION: Negative for gallstones. Raman Marshall MD FACR Abdomen/Pelvis CT 07/14/16 0000 Signed Impressions: Service Date/Time: Thursday, July 14, 2016 15:46 - CONCLUSION: 1. Patchy left lower lung infiltrates. 2. PEG tube in good position. 3. Moderate severity constipation. 4. No evidence of abscess. Jose Velasquez MD Objective Remarks General: No acute distress. Heart: Regular rate and rhythm. No murmur. Lungs: Clear to auscultation bilaterally. No wheezes, rales, or rhonchi. Breathing is nonlabored. Abdomen: Soft, nontender, nondistended. Extremities: No lower extremity edema. Psych: Sleeping. Does not respond to verbal stimuli. Procedures 07/23/16 Right frontal bur hole for placement of ventriculoperitoneal shunt Urinary Catheter: Yes Assessment to: Continue Donald insert reason: Prolonged Immobilization Date of Insertion: Jul 14, 2016 Vascular Central Line Catheter: No A/P Problem List: (1) Sepsis ICD Code: A41.9 Status: Acute (2) Pneumonia ICD Code: J18.9 Status: Acute (3) PEG tube malfunction ICD Code: K94.23 Status: Acute (4) Hypoglycemia ICD Code: E16.2 Status: Acute Assessment and Plan 1. Febrile illness, possible pneumonia/sepsis: Appreciate infectious disease recommendations. Blood cultures are negative. Patient remains afebrile. Antibiotics discontinued. 2. Lactic acidosis: Improved. 3. 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 Check post-op CT. 4. Poor overall prognosis: Appreciate palliative care. Goals remain aggressive per family. 5. Severe constipation: Continue bowel regimen. 6. Electrolyte abnormalities: Continue IV fluids. Monitor labs. 7. Elevated LFTs: Trending down. Appreciate GI recommendations. Hepatitis panel is negative. 8. DVT prophylaxis: Subcutaneous heparin. 9. History of traumatic brain injury 10. Seizure disorder: Continue Keppra. Serum Keppra level pending. 11. PEG tube malfunction: Resolved. Appreciate GI assistance. Tube feeds restarted. 12. Hypoglycemia: Continue D5 in IV fluids. Monitor glucose. Stoverink,Fabián D. MD Jul 24, 2016 07:55
--- NOTE | 2016-07-24 08:18 | RADRPT ---
EXAM DATE/TIME: 07/24/2016 07:47 [place] COMPARISON: CT ABDOMEN & PELVIS W CONTRAST, July 14, 2016, 15:46. CT BRAIN W/O CONTRAST, July 17, 2016, 9:11. 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 RADIATION DOSE: 56.35 CTDIvol (mGy) MEDICAL HISTORY : Seizures. Hypertension. Traumatic brain injury. SURGICAL HISTORY : Craniotomy. ENCOUNTER: Initial ACUITY: 1 day PAIN SCALE: Non-responsive LOCATION: cranial TECHNIQUE: Multiple contiguous axial images were obtained of the head. Using automated exposure control and adj ustment of the mA and/or kV according to patient size, radiation dose was kept as low as reasonably a chievable to obtain optimal diagnostic quality images. FINDINGS: There has been interval right frontal TOOL DESIGNER APPRENTICE shunt placement. The shunt tubing courses along the right pa rietal region and extends anteriorly at the vertex to enter the frontal bone just to the right of mid line. The TOOL DESIGNER APPRENTICE shunt tubing tip is within the left frontal horn of the lateral ventricle. There is subc utaneous stranding and subcutaneous air along the scalp, as expected. Additionally, there is extra-ax ial air in the right frontal region. Ventricles remain diffusely dilated similar to the prior study b ut the third ventricle may be slightly decreased in size. There is severe diffuse atrophy with bilate ral encephalomalacia, left greater than right. No hernia or definite midline shift is appreciated. No acute blood products are visualized. No mass lesion is seen. There is mucoperiosteal thickening with in the sphenoid, ethmoid, and left maxillary sinus. There has been prior right frontal craniotomy. CONCLUSION: 1. TOOL DESIGNER APPRENTICE shunt has been place with tubing tip in the left frontal horn. There is persistent ventriculome greta but the third ventricle may be slightly smaller in size. 2. There are expected changes following the procedure including scalp edema, soft tissue air, and int racranial extra-axial air. 3. The chronic brain changes are stable and include severe bilateral encephalomalacia, left greater t fish right, a with severe atrophy. Donaldo Mace MD on July 24, 2016 at 8:10 Board Certified Radiologist. This report was verified electronically.
[2016-07-24] MEDS: CYCLOBENZAPRINE HCL 10 MG TAB G-TUBE SCH ×3 (08:56→17:17)
[2016-07-24] MEDS: CALCIUM/VITAMIN D 250 MG/125 U TAB G-TUBE SCH (08:56)
[2016-07-24] MEDS: SODIUM CHLORIDE 0.9% FLUSH 5 ML FLUSH IVF SCH ×2 (08:56→20:55)
[2016-07-24] MEDS: LACTULOSE SYRUP 20 GM/30 ML CUP PO SCH (08:56)
[2016-07-24] MEDS: levETIRAcetam 500 MG/5 ML UDC PEG SCH ×2 (12:28→17:17)
[2016-07-24] MEDS: D5-1/2 NS + KCL 20 MEQ INJ 1,000 ML IV SCH ×2 (14:40→17:18)
--- NOTE | 2016-07-24 19:28 | HHI.NSPN ---
History Chief Complaint: nonverbal Interval History 25-year-old male history of severe traumatic brain injury. He is in a persistent vegetative state 07/23/2016: Ventriculoperitoneal shunt placement Exam Results Vital Signs Date Time Temp Pulse Resp B/P Pulse Ox O2 Delivery O2 Flow Rate FiO2 07/24/16 17:49 99 21 07/24/16 16:00 96.8 100 16 120/61 07/24/16 11:28 Nasal Cannula 2.50 Intake and Output 07/23/16 07/23/16 07/24/16 08:00 16:00 00:00 Intake Total 1381 ml 0 ml 1200 ml Output Total 400 ml 900 ml 2575 ml Balance 981 ml -900 ml -1375 ml Physical Examination Awake Tracks and focuses briefly to the left with disconjugate gaze. 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 Severe upper extremity and lower extremity contractures. Incisions are dry and intact. Abdomen soft without obvious tenderness Respirations clear and nonlabored Lab, Micro, Other Results 07/24/16 CT scan head images are reviewed. I agree with findings as noted below: Head CT 07/24/16 0600 Signed Impressions: Service Date/Time: Sunday, July 24, 2016 07:47 - CONCLUSION: 1. FINISHER MACHINE shunt has been place with tubing tip in the left frontal horn. There is persistent ventriculomegaly but the third ventricle may be slightly smaller in size. 2. There are expected changes following the procedure including scalp edema, soft tissue air, and intracranial extra-axial air. 3. The chronic brain changes are stable and include severe bilateral encephalomalacia, left greater than right, a with severe atrophy. Donaldo Mace MD Laboratory Tests Test 07/24/16 06:23 White Blood Count 7.1 TH/MM3 Red Blood Count 3.85 MIL/MM3 Hemoglobin 12.3 GM/DL Hematocrit 36.7 % Mean Corpuscular Volume 95.5 FL Mean Corpuscular Hemoglobin 31.9 PG Mean Corpuscular Hemoglobin 33.4 % Concent Red Cell Distribution Width 13.2 % Platelet Count 195 TH/MM3 Mean Platelet Volume 8.9 FL Neutrophils (%) (Auto) 68.1 % Lymphocytes (%) (Auto) 17.2 % Monocytes (%) (Auto) 12.6 % Eosinophils (%) (Auto) 1.9 % Basophils (%) (Auto) 0.2 % Neutrophils # (Auto) 4.8 TH/MM3 Lymphocytes # (Auto) 1.2 TH/MM3 Monocytes # (Auto) 0.9 TH/MM3 Eosinophils # (Auto) 0.1 TH/MM3 Basophils # (Auto) 0.0 TH/MM3 CBC Comment DIFF FINAL Differential Comment Sodium Level 148 MEQ/L Potassium Level 4.1 MEQ/L Chloride Level 111 MEQ/L Carbon Dioxide Level 28.3 MEQ/L Anion Gap 9 MEQ/L Blood Urea Nitrogen 4 MG/DL Creatinine 0.53 MG/DL Estimat Glomerular Filtration 231 ML/MIN Rate Random Glucose 85 MG/DL Calcium Level 9.2 MG/DL Medical Decision Making Impression and Plan Impression: Stable neurologic exam and CT imaging following ventriculoperitoneal shunt placement Recommendations: Discussed with the patient's mother on the telephone last evening. He is stable for discharge from a neurosurgical standpoint. He will need follow-up neurosurgical evaluation and approximately 10 days for wound check. Leif Champagne MD Jul 24, 2016 19:28
[2016-07-24] MEDS: POLYETHYLENE GLYCOL 17 GM PKG G-TUBE SCH (20:55)
[2016-07-24] MEDS: DEXTROSE 50% IN WATER 50 ML VIAL(D50) IV PUSH PRN (22:15)
[2016-07-25] VITALS (8 sets, daily range): BP systolic 115–130; BP diastolic 55–64; PULSE 97–109; RESP 18–20; TEMP 97.2–98.8; O2SAT 94–100
[2016-07-25] MEDS: HEPARIN SODIUM - SQ 10,000 UNITS/ML VIAL SQ SCH ×3 (04:30→20:18)
--- NOTE | 2016-07-25 07:46 | HHI.PR ---
Subjective Remarks Follow up mental status changes, hypoglycemia. Glucose was low this morning despite D5 in fluids. No other events reported per nursing. Cleared for discharge by neurosurgery. Objective Vitals Vital Signs Date Time Temp Pulse Resp B/P Pulse Ox O2 Delivery O2 Flow Rate FiO2 07/25/16 04:00 98.8 109 18 128/58 100 07/24/16 20:00 100 07/24/16 20:00 98.4 91 18 129/66 100 07/24/16 17:49 99 21 07/24/16 16:00 96.8 100 16 120/61 98 07/24/16 12:00 96.8 86 16 132/74 100 07/24/16 11:28 99 Nasal Cannula 2.50 07/24/16 08:00 77 07/24/16 08:00 94.6 72 16 138/68 100 I/O 07/24/16 07/24/16 07/24/16 07/25/16 07/25/16 07/25/16 07:00 15:00 23:00 07:00 15:00 23:00 Intake Total 500 ml Output Total 575 ml 550 ml 1750 ml 950 ml Balance -575 ml -50 ml -1750 ml -950 ml Intake Oral 0 ml IV Total 500 ml Output Urine Total 575 ml 550 ml 1750 ml 950 ml Result Diagram: 07/24/1662207/24/16622 Imaging Last Impressions Head CT 07/24/16 0600 Signed Impressions: Service Date/Time: Sunday, July 24, 2016 07:47 - CONCLUSION: 1. BOILER WELDER shunt has been place with tubing tip in the left frontal horn. There is persistent ventriculomegaly but the third ventricle may be slightly smaller in size. 2. There are expected changes following the procedure including scalp edema, soft tissue air, and intracranial extra-axial air. 3. The chronic brain changes are stable and include severe bilateral encephalomalacia, left greater than right, a with severe atrophy. Donaldo Mace MD Chest X-Ray 07/20/16 0000 Signed Impressions: Service Date/Time: Wednesday, July 20, 2016 05:58 - CONCLUSION: No acute cardiopulmonary disease. Anna Reina MD Lower Extremity Ultrasound 07/16/16 0000 Signed Impressions: Service Date/Time: Saturday, July 16, 2016 13:59 - CONCLUSION: Negative for deep venous thrombosis. Raman Marshall MD FACR Gall Bladder Ultrasound 07/14/16 0909 Signed Impressions: Service Date/Time: Thursday, July 14, 2016 09:33 - CONCLUSION: Negative for gallstones. Raman Marshall MD FACR Abdomen/Pelvis CT 07/14/16 0000 Signed Impressions: Service Date/Time: Thursday, July 14, 2016 15:46 - CONCLUSION: 1. Patchy left lower lung infiltrates. 2. PEG tube in good position. 3. Moderate severity constipation. 4. No evidence of abscess. Jose Velasquez MD Objective Remarks General: No acute distress. Heart: Regular rate and rhythm. No murmur. Lungs: Clear to auscultation bilaterally. No wheezes, rales, or rhonchi. Breathing is nonlabored. Abdomen: Soft, nontender, nondistended. Extremities: No lower extremity edema. Psych: Eyes open. Does not respond to verbal stimuli. Does not track or follow commands. Procedures 07/23/16 Right frontal bur hole for placement of ventriculoperitoneal shunt Urinary Catheter: Yes Assessment to: Continue Donald insert reason: Prolonged Immobilization Date of Insertion: Jul 14, 2016 Vascular Central Line Catheter: No A/P Problem List: (1) Sepsis ICD Code: A41.9 Status: Acute (2) Pneumonia ICD Code: J18.9 Status: Acute (3) PEG tube malfunction ICD Code: K94.23 Status: Acute (4) Hypoglycemia ICD Code: E16.2 Status: Acute Assessment and Plan 1. Febrile illness, possible pneumonia/sepsis: Appreciate infectious disease recommendations. Blood cultures are negative. Patient remains afebrile. Antibiotics discontinued. 2. Lactic acidosis: Improved. 3. Hydrocephalus: BOILER WELDER shunt placed, POD #2. Cleared for discharge by neurosurgery. 4. Poor overall prognosis: Appreciate palliative care. Goals remain aggressive per family. 5. Severe constipation: Continue bowel regimen. 6. Electrolyte abnormalities: Continue IV fluids. Monitor labs. 7. Elevated LFTs: Trending down. Appreciate GI recommendations. Hepatitis panel is negative. 8. DVT prophylaxis: Subcutaneous heparin. 9. History of traumatic brain injury 10. Seizure disorder: Continue Keppra. Serum Keppra level pending. 11. PEG tube malfunction: Resolved. Appreciate GI assistance. Tube feeds restarted. 12. Hypoglycemia: Continue D5 in IV fluids. Monitor glucose. Continue tube feeds. Discharge Planning Plan for discharge back to SNF when glucose is stable off IV fluids. Fabián Castillo MD Jul 25, 2016 07:46
[2016-07-25 08:17] LABS: BICARBONATE 29.8 MEQ/L (21.0-32.0); INDIRECT BILIRUBIN 0.2 MG/DL (0.0-0.8); POTASSIUM 3.7 MEQ/L (3.5-5.1); TOTAL BILIRUBIN ADULT 0.3 MG/DL (0.2-1.0)
[2016-07-25] MEDS: LACTULOSE SYRUP 20 GM/30 ML CUP PO SCH (08:27)
[2016-07-25] MEDS: CYCLOBENZAPRINE HCL 10 MG TAB G-TUBE SCH ×3 (08:27→17:15)
[2016-07-25] MEDS: CALCIUM/VITAMIN D 250 MG/125 U TAB G-TUBE SCH (08:27)
[2016-07-25] MEDS: levETIRAcetam 500 MG/5 ML UDC PEG SCH ×3 (08:28→17:15)
[2016-07-25] MEDS: SODIUM CHLORIDE 0.9% FLUSH 5 ML FLUSH IVF SCH ×2 (08:28→20:17)
[2016-07-25] MEDS: D5-1/2 NS + KCL 20 MEQ INJ 1,000 ML IV SCH ×3 (10:40→20:17)
--- NOTE | 2016-07-25 15:29 | HHI.GIFU ---
Subjective Remarks Pt resting in bed. Non vverbal. Nonresponsive. Objective Vitals I&O Vital Signs Date Time Temp Pulse Resp B/P Pulse Ox O2 Delivery O2 Flow Rate FiO2 07/25/16 11:50 97.2 100 20 129/64 100 07/25/16 10:27 99 Nasal Cannula 21 07/25/16 07:50 97.6 105 20 115/55 100 07/25/16 04:00 98.8 109 18 128/58 100 07/24/16 20:00 100 07/24/16 20:00 98.4 91 18 129/66 100 07/24/16 17:49 99 21 07/24/16 16:00 96.8 100 16 120/61 98 I/O 07/24/16 07/24/16 07/24/16 07/25/16 07/25/16 07/25/16 07:00 15:00 23:00 07:00 15:00 23:00 Intake Total 500 ml Output Total 575 ml 550 ml 1750 ml 950 ml Balance -575 ml -50 ml -1750 ml -950 ml Intake Oral 0 ml IV Total 500 ml Output Urine Total 575 ml 550 ml 1750 ml 950 ml Laboratory Laboratory Tests Test 07/25/16 06:53 Sodium Level 144 Potassium Level 3.7 Chloride Level 106 Carbon Dioxide Level 29.8 Anion Gap 8 Blood Urea Nitrogen 4 Creatinine 0.56 Estimat Glomerular Filtration 217 Rate Random Glucose 104 Calcium Level 9.2 Total Bilirubin 0.3 Direct Bilirubin 0.1 Indirect Bilirubin 0.2 Aspartate Amino Transf 29 (AST/SGOT) Alanine Aminotransferase 155 (ALT/SGPT) Alkaline Phosphatase 112 Total Protein 7.5 Albumin 2.9 Date/Time Procedure Status Source Growth 07/23/16 17:45 Gram Stain - Final Resulted Cerebral Spinal Fluid Shunt Fluid 07/23/16 17:45 CSF Culture - Preliminary Resulted Cerebral Spinal Fluid Shunt Fluid NO GROWTH IN 48 HOURS. Imaging Last Impressions Head CT 07/24/16 0600 Signed Impressions: Service Date/Time: Sunday, July 24, 2016 07:47 - CONCLUSION: 1. WHEEL SHOP SUPERVISOR shunt has been place with tubing tip in the left frontal horn. There is persistent ventriculomegaly but the third ventricle may be slightly smaller in size. 2. There are expected changes following the procedure including scalp edema, soft tissue air, and intracranial extra-axial air. 3. The chronic brain changes are stable and include severe bilateral encephalomalacia, left greater than right, a with severe atrophy. Donaldo Mace MD Chest X-Ray 07/20/16 0000 Signed Impressions: Service Date/Time: Wednesday, July 20, 2016 05:58 - CONCLUSION: No acute cardiopulmonary disease. Anna Reina MD Lower Extremity Ultrasound 07/16/16 0000 Signed Impressions: Service Date/Time: Saturday, July 16, 2016 13:59 - CONCLUSION: Negative for deep venous thrombosis. Raman Marshall MD FACR Gall Bladder Ultrasound 07/14/16 0909 Signed Impressions: Service Date/Time: Thursday, July 14, 2016 09:33 - CONCLUSION: Negative for gallstones. Raman Marshall MD FACR Abdomen/Pelvis CT 07/14/16 0000 Signed Impressions: Service Date/Time: Thursday, July 14, 2016 15:46 - CONCLUSION: 1. Patchy left lower lung infiltrates. 2. PEG tube in good position. 3. Moderate severity constipation. 4. No evidence of abscess. Jose Velasquez MD Physical Exam HEENT: normocephalic; no jaundice. CHEST: CTA, diminished CARDIAC: RRR ABDOMEN: Soft, nondistended, no hepatosplenomegaly; bowel sounds are present in all four quadrants. PEG tube site without redness or swelling, not flushing EXTREMITIES: contractures [employer]: Eyes open, nonverbal, does not follow commands Assessment and Plan Plan ASSESSMENT: - Elevated LFTs improving. LFTs now trending down, T. Bili 0.2, AST 29, ALT 155 , Alk Phosph 112. Likely this is medication induced. ? Zachery was brought to ER for evaluation of fever of 102, workup negative other than left lower lung infiltrate. Abdomen/Pelvis CT (07/14/16)----> 1. Patchy left lower lung infiltrates. 2. PEG tube in good position. 3. Moderate severity constipation. 4. No evidence of abscess. Gall Bladder Ultrasound (07/14/16)----> Negative for gallstones. Does not appear to have abdominal tenderness. Of note, he is on Keppra and was receiving Zosyn (which was discontinued on 07/19) . Hepatitis panel negative, TITUS negative, AMA < 20.0, ASMA negative, Iron Saturation 34.5%, Ferritin 93, AFP 3.9, Alpha 1 Antitrypsin 147. Ceruloplasmin 19. . - Hx TBI, chronic appearing hydrocephalus with bilateral encephalomalacia. s/p vp publisher development shunt. PLAN: - Monitor LFTs - Suspect that his liver enzyme derangement is secondary to medications, ? Jose. Was also on Zosyn, although this was stopped on 07/19. LFTs are now trending down. If worsening of liver enzymes, consider liver biopsy. - Supportive care - GI will sign off, please reconsult if needed. - Pt seen and examined by Dr. Tucker and myself and this note is written on his behalf Carito Abrams Jul 25, 2016 15:29
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
[2016-07-25] MEDS: POLYETHYLENE GLYCOL 17 GM PKG G-TUBE SCH (20:16)
[2016-07-26] VITALS: BP 139/74; PULSE 83; RESP 18; TEMP 96.5; O2SAT 99
[2016-07-26 04:00] VITALS: BP 137/72; PULSE 95; RESP 18; TEMP 97.2; O2SAT 100
[2016-07-26] MEDS: HEPARIN SODIUM - SQ 10,000 UNITS/ML VIAL SQ SCH ×3 (04:02→19:58)
[2016-07-26] MEDS: D5-1/2 NS + KCL 20 MEQ INJ 1,000 ML IV SCH ×2 (06:40→08:45)
[2016-07-26 06:59] LABS: AUTOMATED NEUTROPHIL # 2.8 TH/MM3 (1.8-7.7); BASOPHIL % 0.2 % (0.0-2.0); EOSINOPHIL # 0.2 TH/MM3 (0-0.4); EOSINOPHIL % 3.8 % (0.0-4.0); HEMATOCRIT 36.8 % (39.0-51.0); HEMO FLAGS DIFF FINAL; LYMPH % 32.5 % (9.0-44.0); LYMPHOCYTE # 1.9 TH/MM3 (1.0-4.8); MEAN CELL VOLUME 94.7 FL (80.0-100.0); MEAN CORPUSCULAR HEMOGLOBIN 31.8 PG (27.0-34.0); MEAN CORPUSCULAR HGB CONC 33.6 % (32.0-36.0); MONO % 16.7 % (0.0-8.0); NEUT % 46.8 % (16.0-70.0); PLATELET COUNT 242 TH/MM3 (150-450); RED BLOOD COUNT 3.89 MIL/MM3 (4.50-5.90); RED CELL DISTRIBUTION WIDTH 12.9 % (11.6-17.2)
[2016-07-26 07:33] LABS: ALKALINE PHOSPHATASE 114 U/L (45-117); ALT (GPT) 135 U/L (12-78); ANION GAP 7 MEQ/L (5-15); AST (GOT) 25 U/L (15-37); BICARBONATE 30.4 MEQ/L (21.0-32.0); BLOOD UREA NITROGEN 3 MG/DL (7-18); CHLORIDE 103 MEQ/L (98-107); GLOMERULAR FILTRATION RATE 248 ML/MIN (>89); POTASSIUM 3.9 MEQ/L (3.5-5.1); SODIUM (NA) 140 MEQ/L (136-145); TOTAL BILIRUBIN ADULT 0.3 MG/DL (0.2-1.0)
[2016-07-26 07:50] VITALS: BP 123/60; PULSE 87; RESP 20; TEMP 96.2; O2SAT 100
[2016-07-26] MEDS: LACTULOSE SYRUP 20 GM/30 ML CUP PO SCH (08:45)
[2016-07-26] MEDS: CALCIUM/VITAMIN D 250 MG/125 U TAB G-TUBE SCH (08:45)
[2016-07-26] MEDS: CYCLOBENZAPRINE HCL 10 MG TAB G-TUBE SCH ×3 (08:45→17:54)
[2016-07-26] MEDS: levETIRAcetam 500 MG/5 ML UDC PEG SCH ×3 (08:45→17:54)
[2016-07-26] MEDS: SODIUM CHLORIDE 0.9% FLUSH 5 ML FLUSH IVF SCH ×2 (08:46→19:58)
[2016-07-26 11:50] VITALS: BP 139/69; PULSE 98; RESP 20; TEMP 97.7; O2SAT 100
--- NOTE | 2016-07-26 11:55 | HHI.PR ---
Addendum to Inpatient Note Addendum Reason: Additional Documentation Additional Information CSF studies negative at 72 hours. All cultures negative so far. No fevers for days now. WBC normal. Observe off antibiotics. Will sign off please call back if any change in clinical condition or questions. Susy Figueredo MD Jul 26, 2016 11:55
[2016-07-26 15:30] VITALS: BP 121/66; PULSE 101; RESP 20; TEMP 97.9; O2SAT 100
--- NOTE | 2016-07-26 16:26 | HHI.PR ---
Subjective Remarks No overnight events, BG's are stable at 120s to 130s but still on D5. No nausea or vomiting. No residuals. Objective Vitals Vital Signs Date Time Temp Pulse Resp B/P Pulse Ox O2 Delivery O2 Flow Rate FiO2 07/26/16 11:50 97.7 98 20 139/69 100 07/26/16 07:50 96.2 87 20 123/60 100 07/26/16 04:00 97.2 95 18 137/72 100 07/26/16 00:00 96.5 83 18 139/74 99 07/25/16 20:21 94 21 07/25/16 20:18 97 07/25/16 20:00 97.2 103 18 116/64 100 I/O 07/25/16 07/25/16 07/25/16 07/26/16 07/26/16 07/26/16 06:59 14:59 22:59 06:59 14:59 22:59 Intake Total 867 ml 680 ml 200 ml Output Total 950 ml 1650 ml 1600 ml 700 ml 1125 ml Balance -950 ml -783 ml -920 ml -700 ml -925 ml Intake Oral 0 ml 0 ml IV Total 867 ml Tube Feeding 440 ml Other 240 ml 200 ml Output Urine Total 950 ml 1650 ml 1600 ml 700 ml 1125 ml # Bowel Movements 0 0 Result Diagram: 07/26/16 0611 07/26/16 0611 Objective Remarks General: No acute distress. Heart: Regular rate and rhythm. No murmur. Lungs: Clear to auscultation bilaterally. No wheezes, rales, or rhonchi. Breathing is nonlabored. Abdomen: Soft, nontender, nondistended. Extremities: No lower extremity edema. Psych: Eyes open. Does not respond to verbal stimuli. Does not track or follow commands. Procedures 07/23/16 Right frontal bur hole for placement of ventriculoperitoneal shunt Date of Insertion: Jul 14, 2016 A/P Problem List: (1) Sepsis ICD Code: A41.9 Status: Acute (2) Pneumonia ICD Code: J18.9 Status: Acute (3) PEG tube malfunction ICD Code: K94.23 Status: Acute (4) Hypoglycemia ICD Code: E16.2 Status: Acute Assessment and Plan 1. Febrile illness, possible pneumonia/sepsis: Appreciate infectious disease recommendations. Blood cultures are negative. Patient remains afebrile. Antibiotics discontinued. 2. Lactic acidosis: Improved. 3. Hydrocephalus: WELT TREATER shunt placed, POD #2. Cleared for discharge by neurosurgery. 4. Poor overall prognosis: Appreciate palliative care. Goals remain aggressive per family. 5. Severe constipation: Continue bowel regimen. 6. Electrolyte abnormalities: Continue IV fluids. Monitor labs. 7. Elevated LFTs: Trending down. Appreciate GI recommendations. Hepatitis panel is negative. 8. DVT prophylaxis: Subcutaneous heparin. 9. History of traumatic brain injury 10. Seizure disorder: Continue Keppra. Serum Keppra level pending. 11. PEG tube malfunction: Resolved. Appreciate GI assistance. Tube feeds restarted. 12. Hypoglycemia: Stop D5 in IV fluids. Continue tube feeds, once stopping D5, continue to check BG's every 2 hours, if stable for 4 hours, check every 6 hours , discussed with RN. Discharge Planning Plan for discharge back tomorrow to SNF when glucose is stable off IV fluids. Emelyn Bojorquez MD Jul 26, 2016 16:26
[2016-07-26] MEDS: POLYETHYLENE GLYCOL 17 GM PKG G-TUBE SCH (19:58)
[2016-07-26 20:00] VITALS: BP 125/57; PULSE 99; RESP 17; TEMP 96.4; O2SAT 99
[2016-07-27] VITALS: BP 123/78; PULSE 98; RESP 18; TEMP 96.8; O2SAT 99
[2016-07-27] MEDS: HEPARIN SODIUM - SQ 10,000 UNITS/ML VIAL SQ SCH ×2 (03:48→12:17)
[2016-07-27] MEDS: ACETAMINOPHEN/HYDROcodone 325 MG/10 MG TAB G-TUBE PRN (03:49)
[2016-07-27 04:00] VITALS: BP 114/59; PULSE 106; RESP 17; TEMP 97.2; O2SAT 99
[2016-07-27] MEDS ORDERED: HYDR-3366 G-TUBE (08:55)
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
[2016-07-27] MEDS: SODIUM CHLORIDE 0.9% FLUSH 5 ML FLUSH IVF SCH (09:00)
[2016-07-27 10:06] VITALS: PULSE 99; RESP 16; TEMP 96.5; O2SAT 98
[2016-07-27] MEDS: CALCIUM/VITAMIN D 250 MG/125 U TAB G-TUBE SCH (10:13)
[2016-07-27] MEDS: levETIRAcetam 500 MG/5 ML UDC PEG SCH ×2 (10:13→12:17)
[2016-07-27] MEDS: CYCLOBENZAPRINE HCL 10 MG TAB G-TUBE SCH ×2 (10:13→12:16)
[2016-07-27] MEDS: LACTULOSE SYRUP 20 GM/30 ML CUP PO SCH (10:13)
[2016-07-27 10:30] VITALS: BP 100/62
== END 2016-07-27 12:38 | DRG 853 ==
LOC: NEPE 07:20 → NEDA 10:34 → NEDH 15:13 → HIMN 18:45 → HOCB 07-15 14:08
PROVIDERS: ADMIT Hospitalist; ATTEND Hospitalist
PROC: 00163J6 Bypass Cerebral Ventricle to Peritoneal Cavity with Synthetic Substitute, Percutaneous Approach (ICD-10-PCS; principal; 2016-07-23 16:06)
DX: A41.9 Sepsis, unspecified organism (principal); J69.0 Pneumonitis due to inhalation of food and vomit; G93.40 Encephalopathy, unspecified; R40.3 Persistent vegetative state; E87.2 Acidosis; E87.0 Hyperosmolality and hypernatremia; G91.9 Hydrocephalus, unspecified; K94.23 Gastrostomy malfunction; E83.52 Hypercalcemia; E87.5 Hyperkalemia; G40.909 Epilepsy, unspecified, not intractable, without status epilepticus; R50.2 Drug induced fever; E16.2 Hypoglycemia, unspecified; K59.00 Constipation, unspecified; K21.9 Gastro-esophageal reflux disease without esophagitis; I10 Essential (primary) hypertension; R65.20 Severe sepsis without septic shock; M81.0 Age-related osteoporosis without current pathological fracture; M62.49 Contracture of muscle, multiple sites; S06.5X0S Traumatic subdural hemorrhage without loss of consciousness, sequela; V89.2XXS Person injured in unspecified motor-vehicle accident, traffic, sequela; Z74.01 Bed confinement status; Z87.820 Personal history of traumatic brain injury; Z98.2 Presence of cerebrospinal fluid drainage device; Y83.3 Surgical operation with formation of external stoma as the cause of abnormal reaction of the patient, or of later complication, without mention of misadventure at the time of the procedure; G93.89 Other specified disorders of brain
CPT/HCPCS: 51702; 70450; 71010; 74177; 76705; 76937; 80048; 80053; 80074; 80076; 80177; 81001; 82103; 82105; 82390; 82728; 82945; 82948; 83520; 83540; 83550; 83605; 83690; 83735; 84100; 84145; 84157; 85007; 85025; 85027; 86038; 86256; 87040; 87070; 87086; 87205; 87641; 87804; 89051; 93005; 93970; 95819; 96361; 96365; 96367; J0690; J1580; J1644; J1953; J1956; J2270; J2370; J2405; J2543; J2710; J3010; J3370; J3480; J7030; J7040; J7050; J7120; Q9963; Q9967

== ENCOUNTER 2016-08-15 22:48 | Emergency (ER) | payer MEDICAID ==
[~2016-08-15] VITALS: Ht 172.7 cm; Wt 68.0 kg
[~2016-08-15 22:48] MED LIST changes: -ALTA5CAP3 GT; -ASPI81 CHEW; +ASPI81CH G-TUBE; -BACL10TA GT; -BISA10SU8 PR; -BUDE.5I NEB; +CALTCHW4 G-TUBE; -CALTTAB GT; -CLIN150 GT; +CYCL1TAB29 G-TUBE; -DOCU50SY2 GT; +DULC10SU3 RECTAL; +GLYC1TAB17 G-TUBE; -GLYC1TAB17 GT; +HYDR-3366 G-TUBE; +IPRASOL INH; -JEVILIQ10 G-TUBE; -LEVA500T G-TUBE; +LEVE100S G-TUBE; -LEVE500S GT; -MAGN30S PO; +MILKSUS G-TUBE; +OMEP20CA2 G-TUBE; +POLY17S G-TUBE; -PROT40TA GT; -Z.0.OXYGEN INH
[2016-08-15 23:09] VITALS: BP 106/75; PULSE 81; RESP 22; TEMP 98.2; O2SAT 100
[2016-08-15] MEDS ORDERED: GELATIN 12 MM/7 MM FOAM TOPICAL ONE (23:15)
--- NOTE | 2016-08-15 23:57 | PD ---
HPI Chief Complaint: Bleeding Time Seen by Provider: 23:06 Travel History International Travel<30 days: No Contact w/Intl Traveler<30days: No Traveled to known affect area: No History of Present Illness HPI Patient is a 25-year-old male from [facility]– [place] who presents to emergency room for evaluation of bleeding in his mouth. As per OR facility, patient does have history of seizures, reports that they noticed that patient had a quarter sized clot removed from his mouth today. OR believes that patient may have a had a seizure today and bit his tongue/buccal mucosa. Patient is nonverbal and unable to provide history of present illness. Patient does take a baby ASA each day. PFSH Past Medical History ADHD: Yes Arthritis: No Asthma: No Autoimmune Disease: No Anxiety: No Depression: No Heart Rhythm Problems: No Cancer: No Cardiovascular Problems: No High Cholesterol: No Chemotherapy: No Chest Pain: No Congestive Heart Failure: No COPD: No Cerebrovascular Accident: No Developmental Delay: No Diabetes: No Diminished Hearing: No Endocrine: No Gastrointestinal Disorders: Yes (CONSTIPATION) GERD: Yes Genitourinary: No Hiatal Hernia: No Hypertension: Yes Immune Disorder: No Kidney Stones: No Musculoskeletal: Yes (osteoporosis, muscle spasm ) Neurologic: Yes (convulsions) Psychiatric: No Respiratory: No Immunizations Current: Yes Migraines: No Radiation Therapy: No Renal Failure: No Seizures: Yes Sickle Cell Disease: No Sleep Apnea: No Thyroid Disease: No Ulcer: No Past Surgical History Abdominal Surgery: Yes (PEG PLACEMENT) Appendectomy: No Cardiac Surgery: No Cholecystectomy: No Ear Surgery: No Endocrine Surgery: No Eye Surgery: No Genitourinary Surgery: No Gynecologic Surgery: No Neurologic Surgery: Yes (craniotomy ) Oral Surgery: No Thoracic Surgery: No Other Surgery: Yes (l pinky finger) Social History Alcohol Use: No Tobacco Use: No Substance Use: No Allergies-Medications (Allergen,Severity, Reaction): Coded Allergies: No Known Allergies (Verified , 08/15/16) Reported Meds & Prescriptions Reported Meds & Active Scripts Active [place] (Hydrocodone-Acetaminophen) 10-325 Mg Tab 1 Tab G-TUBE Q4H PRN Reported Milk of Magnesia Liq (Magnesium Hydroxide) 400 Mg/5 Ml Susp 30 Ml G-TUBE DAILY PRN Caltrate 600+D Soft Chews (Calcium Carbonate-Cholecalciferol) 600-800 Mg-Unit Chew 1 Tab G-TUBE DAILY Dulcolax Supp (Bisacodyl) 10 Mg Supp 10 Mg RECTAL HS PRN Artificial Tears Opth Drops (Polyvinyl Alcohol) 1.4% Soln 1 Drop EACH EYE QID PRN Glycopyrrolate 1 Mg Tab 1 Mg G-TUBE Q8HR Aspirin 81 Mg Chew 81 Mg G-TUBE DAILY Polyethylene Glycol 3350 Powder (Polyethylene Glycol) 17 Gm Pow 17 Gm G-TUBE HS Levetiracetam Liq (Levetiracetam) 500 Mg/5 Ml Soln 200 Mg G-TUBE TID Duoneb (Ipratropium-Albuterol Neb) 0.5-2.5 Mg/3 Ml Neb 1 Nebule INH Q4HR NEB Flexeril (Cyclobenzaprine HCl) 10 Mg Tab 10 Mg G-TUBE TID Omeprazole 20 Mg Cap 20 Mg G-TUBE DAILY Review of Systems ROS Limitations: Poor Historian, Other: (patient nonverbal at baseline) Physical Exam Narrative GENERAL: No acute distress, nontoxic SKIN: Focused skin assessment warm/dry. HEAD: Atraumatic. Normocephalic. EYES: Pupils equal and round. No scleral icterus. No injection or drainage. ENT: No nasal bleeding or discharge. Mucous membranes pink and moist. There is blood from his bottom lower molars, there is no bleeding or any lacerations to his buccal mucosa/tongue or palate, patient appears to have oozing of blood to his lower tooth, there is no blood in posterior pharynx NECK: Trachea midline. No JVD. CARDIOVASCULAR: Regular rate and rhythm. No murmur appreciated. RESPIRATORY: No accessory muscle use. Clear to auscultation. Breath sounds equal bilaterally. GASTROINTESTINAL: Abdomen soft, non-tender, nondistended. Hepatic and splenic margins not palpable. MUSCULOSKELETAL: No obvious deformities. No clubbing. No cyanosis. No edema. N PSYCHIATRIC: Appropriate mood and affect; insight and judgment normal. Data Data Last Documented VS Vital Signs Date Time Temp Pulse Resp B/P Pulse Ox O2 Delivery O2 Flow Rate FiO2 08/16/16 00:00 80 17 94/56 97 Room Air 08/15/16 23:09 98.2 Orders Gelatin 12 Mm/7 Mm Top (Gelfoam 12 Mm/7 (08/15/16 23:15) MDM Medical Decision Making Medical Screen Exam Complete: Yes Emergency Medical Condition: Yes Interpretation(s) Vital Signs Date Time Temp Pulse Resp B/P Pulse Ox O2 Delivery O2 Flow Rate FiO2 08/15/16 23:09 98.2 81 22 106/75 100 Differential Diagnosis Bleeding from mouth to be secondary to seizure, tongue bite, by to mucosal Narrative Course Patient is a 25-year-old male who is nonverbal at baseline with history of seizures, [facility] bleeding in [facility]. As per [facility], they noticed blood clots in his mouth, they're unsure if patient had seizure today. Patient does take a baby aspirin daily. On physical exam, patient with no obvious bleeding to her mucosa/tongue or palate. There is not obvious lacerations in the mouth. He does have oozing from the bottom of her lower molar which is probably where the bleeding is. Plan to monitor patient Patient with cessation of oral bleeding at this time. Patients mother at bedside , will have patient be seen by dentist. Signs and symptoms of when to return to ER was reviewed with patient in detail Diagnosis Primary Impression: Oral bleeding Patient Instructions: General Instructions Additional Instructions: Please follow up with dentist Return to ER if symptoms return Disposition: 01 DISCHARGE HOME Condition: Stable Farnaz Tripathi DO August 15, 2016 23:57
[2016-08-16] VITALS: BP 94/56; PULSE 80; RESP 17; O2SAT 97
[2016-08-16 03:00] VITALS: BP 100/56; PULSE 60; RESP 17; O2SAT 98
[2016-08-16 06:00] VITALS: BP 103/66; PULSE 42; PULSE 72; RESP 17; O2SAT 98
[2016-08-16 08:03] VITALS: BP 109/63
== END 2016-08-16 08:05 | disposition home or self-care (01) ==
LOC: NEPD 22:48
DX: R58 Hemorrhage, not elsewhere classified (principal)
CPT/HCPCS: 99283

== ENCOUNTER → 2016-08-16 | Outpatient (CLI) | payer MEDICAID ==
--- NOTE | 2016-08-16 09:54 | RADRPT ---
EXAM DATE/TIME: 08/16/2016 08:56 [facility] COMPARISON: CT BRAIN W/O CONTRAST, July 24, 2016, 7:47. INDICATIONS : Evaluate for hydrocephalus RADIATION DOSE: 67.11 CTDIvol (mGy) MEDICAL HISTORY : Hypertension. Seizures. SURGICAL HISTORY : Craniotomy. ENCOUNTER: Subsequent ACUITY: 1 month PAIN SCALE: Non-responsive LOCATION: cranial TECHNIQUE: Multiple contiguous axial images were obtained of the head. Using automated exposure control and adj ustment of the mA and/or kV according to patient size, radiation dose was kept as low as reasonably a chievable to obtain optimal diagnostic quality images. FINDINGS: The only interval change from the prior exam has been a slight reduction in the size of the ventricle s. The medial to lateral dimension of the anterior horns on the prior study was 7.3 cm and on today's study 7.1 cm. A right-sided ventriculostomy is noted with the tip terminating in the left lateral ve ntricle. Diffuse atrophy. Reduced attenuation of the entire left cerebral hemisphere as well as the r ight frontal lobe. This is stable. Cerebellum has a more normal appearance. Prior right craniotomy de fect. Mucosal thickening throughout all paranasal sinuses. Mastoid air cells are clear. CONCLUSION: 1. Slight decrease in size of the lateral ventricles relative to the prior study. 2. Otherwise persistent ventriculomegaly and diffuse cerebral atrophy. 3. Chronic paranasal sinus disease. Jose Alba Jr., MD on August 16, 2016 at 9:40 Board Certified Radiologist. This report was verified electronically.
== END ==
LOC: HRAD 08:16
PROVIDERS: ATTEND Neurological Surgery
DX: G91.9 Hydrocephalus, unspecified (principal)
CPT/HCPCS: 70450

== ENCOUNTER 2016-11-24 10:16 | Emergency (ER) | payer MEDICAID ==
[~2016-11-24] VITALS: Ht 172.7 cm; Wt 68.0 kg
[2016-11-24 10:20] VITALS: BP 111/68; PULSE 68; PULSE 70; RESP 16; TEMP 98.1; O2SAT 100
--- NOTE | 2016-11-24 11:03 | PD ---
HPI Chief Complaint: Respiratory Symptoms Time Seen by Provider: 10:59 Travel History International Travel<30 days: No Contact w/Intl Traveler<30days: No Traveled to known affect area: No History of Present Illness HPI 26-year-old male with history of TBI, and a persistent vegetative state, presents to the emergency department from his [facility] facility for evaluation of what was reported as respiratory symptoms. Per [facility] report, they were called because the patient was tachypneic, tachycardic, and wheezing on his assessment by the a.m. nursing staff. They sent him to our facility for evaluation. [facility] states when they arrived there the, the patient had normal vital signs and did not appear knee distress. Here the patient has normal vital signs, oxygen saturation is 100% on room air, and is without any distress. He cannot supply any history due to his current persistent vegetative state. PFSH Past Medical History ADHD: Yes Arthritis: No Asthma: No Autoimmune Disease: No Anxiety: No Depression: No Heart Rhythm Problems: No Cancer: No Cardiovascular Problems: No High Cholesterol: No Chemotherapy: No Chest Pain: No Congestive Heart Failure: No COPD: No Cerebrovascular Accident: No Developmental Delay: No Diabetes: No Diminished Hearing: No Endocrine: No Gastrointestinal Disorders: Yes (CONSTIPATION) GERD: Yes Genitourinary: No Hiatal Hernia: No Hypertension: Yes Immune Disorder: No Kidney Stones: No Medical other: Yes (HYDROCEPHALUS, SHUNT) Musculoskeletal: Yes (osteoporosis, muscle spasm ) Neurologic: Yes (convulsions) Psychiatric: No Respiratory: No Immunizations Current: Yes Migraines: No Radiation Therapy: No Renal Failure: No Seizures: Yes Sickle Cell Disease: No Sleep Apnea: No Thyroid Disease: No Ulcer: No Past Surgical History Abdominal Surgery: Yes (PEG PLACEMENT) Appendectomy: No Cardiac Surgery: No Cholecystectomy: No Ear Surgery: No Endocrine Surgery: No Eye Surgery: No Genitourinary Surgery: No Gynecologic Surgery: No Neurologic Surgery: Yes (craniotomy ) Oral Surgery: No Thoracic Surgery: No Other Surgery: Yes (l pinky finger) Social History Alcohol Use: No Tobacco Use: No Substance Use: No Allergies-Medications (Allergen,Severity, Reaction): Coded Allergies: No Known Allergies (Verified , 11/24/16) Reported Meds & Prescriptions Reported Meds & Active Scripts Active [place] (Hydrocodone-Acetaminophen) 10-325 Mg Tab 1 Tab G-TUBE Q4H PRN Reported Milk of Magnesia Liq (Magnesium Hydroxide) 400 Mg/5 Ml Susp 30 Ml G-TUBE DAILY PRN Caltrate 600+D Soft Chews (Calcium Carbonate-Cholecalciferol) 600-800 Mg-Unit Chew 1 Tab G-TUBE DAILY Dulcolax Supp (Bisacodyl) 10 Mg Supp 10 Mg RECTAL HS PRN Artificial Tears Opth Drops (Polyvinyl Alcohol) 1.4% Soln 1 Drop EACH EYE QID PRN Glycopyrrolate 1 Mg Tab 1 Mg G-TUBE Q8HR Aspirin 81 Mg Chew 81 Mg G-TUBE DAILY Polyethylene Glycol 3350 Powder (Polyethylene Glycol) 17 Gm Pow 17 Gm G-TUBE HS Levetiracetam Liq (Levetiracetam) 500 Mg/5 Ml Soln 200 Mg G-TUBE TID Duoneb (Ipratropium-Albuterol Neb) 0.5-2.5 Mg/3 Ml Neb 1 Nebule INH Q4HR NEB Flexeril (Cyclobenzaprine HCl) 10 Mg Tab 10 Mg G-TUBE TID Omeprazole 20 Mg Cap 20 Mg G-TUBE DAILY Review of Systems ROS Limitations: Altered Mental Status, Unresponsive Physical Exam Exam Limitations: Altered Mental Status Narrative GENERAL: Well-nourished male patient, laying in bed, appears without distress SKIN: Focused skin assessment warm/dry. HEAD: Atraumatic. Normocephalic. EYES: Pupils equal and round. No scleral icterus. No injection or drainage. ENT: No nasal bleeding or discharge. Mucous membranes pink and moist. NECK: Trachea midline. No JVD. CARDIOVASCULAR: Regular rate and rhythm. RESPIRATORY: No accessory muscle use. Clear to auscultation. Breath sounds equal bilaterally. GASTROINTESTINAL: Abdomen soft, non-tender, nondistended. Hepatic and splenic margins not palpable. PEG tube in place. Active bowel sounds. MUSCULOSKELETAL: No obvious deformities. No clubbing. No cyanosis. No edema. Contractures of the bilateral upper extremities. Bilateral foot drop. NEUROLOGICAL: . Persistent vegetative state. Eyes open spontaneously. Data Data Last Documented VS Vital Signs Date Time Temp Pulse Resp B/P Pulse Ox O2 Delivery O2 Flow Rate FiO2 11/24/16 13:29 64 16 120/68 99 11/24/16 10:20 98.1 11/24/16 10:20 Room Air MDM Medical Decision Making Medical Screen Exam Complete: Yes Emergency Medical Condition: Yes Medical Record Reviewed: Yes Differential Diagnosis Baseline examination versus electro-abnormality versus normal exam versus anxiety versus neurologic response versus pneumonia Narrative Course 26-year-old male presents to the emergency department for evaluation. Patient appears without distress. His vital signs are stable. Lungs sounds are clear. Oxygen saturation is 100% on room air. This has been for his entire visit here in emergency department. I discussed the patient my attending physician and there is no indication for emergent workup at this time. Patient was discharged back to his facility. Diagnosis Primary Impression: Persistent vegetative state Additional Impression: History of traumatic brain injury Referrals: Primary Care Physician Patient Instructions: General Instructions, Normal Exam (ED) Additional Instructions: Pt appears at baseline RR is 14 bpm HR 65 bpm; NSR O2 sat on RA 100% No need for further emergent work up at this time Med/Other Pt SpecificInfo: No Change to Meds Disposition: 03 DISCHARGE TO SNF Condition: Stable Radha Parikh Nov 24, 2016 11:03
[2016-11-24 13:29] VITALS: BP 120/68
== END 2016-11-24 13:32 ==
LOC: NEPE 10:16
DX: R40.3 Persistent vegetative state (principal); Z87.820 Personal history of traumatic brain injury; R00.0 Tachycardia, unspecified; R06.82 Tachypnea, not elsewhere classified; R06.2 Wheezing; K21.9 Gastro-esophageal reflux disease without esophagitis; I10 Essential (primary) hypertension; M81.0 Age-related osteoporosis without current pathological fracture; Z98.2 Presence of cerebrospinal fluid drainage device
CPT/HCPCS: 99283

== ENCOUNTER 2017-02-22 11:03 | Emergency (ER) | payer MEDICAID ==
[~2017-02-22] VITALS: Ht 172.7 cm; Wt 78.0 kg
[~2017-02-22 11:03] MED LIST changes: +ASPI-516 G-TUBE; -ASPI81CH G-TUBE; +CYCL10TA G-TUBE; -CYCL1TAB29 G-TUBE
[2017-02-22 11:11] VITALS: BP 140/75; PULSE 73; RESP 14; TEMP 98.9; O2SAT 98
--- NOTE | 2017-02-22 11:35 | PD ---
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 Patient has a G-tube to help feed him secondary to traumatic head injury and quadriplegic and per rehabilitation facilities not been flushing over-the- counter get anything out of it. Unclear if it clot or out of place. Patient denies any symptoms what he is also nonverbal. History is limited from the patient as patient himself is not a good historian at all. From what I can tell he has no signs of infection or ulcerations. No other complaints were given by rehabilitation facility. Here mainly to get the G-tube check. PFSH Past Medical History ADHD: Yes Arthritis: No Asthma: No Autoimmune Disease: No Anxiety: No Depression: No Heart Rhythm Problems: No Cancer: No Cardiovascular Problems: No High Cholesterol: No Chemotherapy: No Chest Pain: No Congestive Heart Failure: No COPD: No Cerebrovascular Accident: No Developmental Delay: No Diabetes: No Diminished Hearing: No Endocrine: No Gastrointestinal Disorders: Yes (CONSTIPATION) GERD: Yes Genitourinary: No Hiatal Hernia: No Hypertension: Yes Immune Disorder: No Kidney Stones: No Musculoskeletal: Yes (osteoporosis, muscle spasm ) Neurologic: Yes (convulsions) Psychiatric: No Respiratory: No Immunizations Current: Yes Migraines: No Radiation Therapy: No Renal Failure: No Seizures: Yes Sickle Cell Disease: No Sleep Apnea: No Thyroid Disease: No Ulcer: No Tetanus Vaccination: Unknown Past Surgical History Abdominal Surgery: Yes (PEG PLACEMENT) Appendectomy: No Cardiac Surgery: No Cholecystectomy: No Ear Surgery: No Endocrine Surgery: No Eye Surgery: No Genitourinary Surgery: No Gynecologic Surgery: No Neurologic Surgery: Yes (craniotomy ) Oral Surgery: No Thoracic Surgery: No Other Surgery: Yes (l pinky finger) Social History Alcohol Use: No Tobacco Use: No Substance Use: No Allergies-Medications (Allergen,Severity, Reaction): Coded Allergies: No Known Allergies (Verified Adverse Reaction, Unknown, 02/22/17) Reported Meds & Prescriptions Reported Meds & Active Scripts Active [place] (Hydrocodone-Acetaminophen) 10-325 Mg Tab 1 Tab G-TUBE Q4H PRN Reported Tylenol (Acetaminophen) 325 Mg Tab 650 Mg G-TUBE Q4H PRN Tamsulosin (Tamsulosin HCl) 0.4 Mg Cap 0.4 Mg G-TUBE HS Tizanidine (Tizanidine HCl) 2 Mg Cap 2 Mg G-TUBE TID Milk of Magnesia Liq (Magnesium Hydroxide) 400 Mg/5 Ml Susp 30 Ml G-TUBE DAILY PRN Caltrate 600+D Soft Chews (Calcium Carbonate-Cholecalciferol) 600-800 Mg-Unit Chew 1 Tab G-TUBE DAILY Dulcolax Supp (Bisacodyl) 10 Mg Supp 10 Mg RECTAL HS PRN Artificial Tears Opth Drops (Polyvinyl Alcohol) 1.4% Soln 1 Drop EACH EYE QID PRN Glycopyrrolate 1 Mg Tab 1 Mg G-TUBE Q8HR Aspirin 81 Mg Chew 81 Mg G-TUBE DAILY Polyethylene Glycol 3350 Powder (Polyethylene Glycol) 17 Gm Pow 17 Gm G-TUBE HS Levetiracetam Liq (Levetiracetam) 500 Mg/5 Ml Soln 200 Mg G-TUBE TID Duoneb (Ipratropium-Albuterol Neb) 0.5-2.5 Mg/3 Ml Neb 1 Nebule INH Q4HR NEB Omeprazole 20 Mg Cap 20 Mg G-TUBE DAILY Review of Systems ROS Limitations: Poor Historian Except as stated in HPI: all other systems reviewed are Neg Physical Exam Exam Limitations: Poor Historian Narrative GENERAL: SKIN: Warm and dry. No obvious skin lesions noted on exam HEAD: Atraumatic. Normocephalic. EYES: Pupils equal and round. No scleral icterus. No injection or drainage. ENT: No nasal bleeding or discharge. Mucous membranes pink and moist. Tongue is midline. No uvula deviation. NECK: Trachea midline. No JVD. CARDIOVASCULAR: Regular rate and rhythm. No murmurs, S3, S4. RESPIRATORY: No accessory muscle use. Clear to auscultation. Breath sounds equal bilaterally. GASTROINTESTINAL: Abdomen soft, non-tender, nondistended. Hepatic and splenic margins not palpable. Patient has a G-tube in place. MUSCULOSKELETAL: Extremities without clubbing, cyanosis, or edema. No obvious deformities. Quadriplegic with spastic upper and lower extremities. Unable to move them freely. 2+ pulses bilaterally. NEUROLOGICAL: Awake and alert. No obvious cranial nerve deficits. Motor grossly within normal limits. Five out of 5 muscle strength in the arms and legs. Normal speech. PSYCHIATRIC: Appropriate mood and affect; insight and judgment normal. Data Data Last Documented VS Vital Signs Date Time Temp Pulse Resp B/P (MAP) Pulse Ox O2 Delivery O2 Flow Rate FiO2 02/22/17 11:11 98.9 73 14 140/75 (96) 98 Orders Orders Invasive Rad Dept Consult (02/22/17 ) G Tube Clearance W/Device (02/22/17 ) MDM Medical Decision Making Medical Screen Exam Complete: Yes Emergency Medical Condition: Yes Medical Record Reviewed: Yes Differential Diagnosis PEG tube malfunction versus G-tube malfunction versus normal exam Narrative Course 26-year-old male that presents to the ED for evaluation of G-tube malfunction. Most of the history was obtained from the ED nurse as she is or who will obtain all the report from the rehabilitation. Patient appears to be in no acute distress. Patient mainly here for malfunctioning G-tube. IR was called and they said that they will evaluated the patient. Order was placed for this. I was able to unclog the tube. Patient not tolerating fluids from the PEG tube. Patient will be discharged back to rehabilitation facility. Case discussed with my attending Dr. Epps for agrees with plan. Close follow with PCP. See ED worsening symptoms. Diagnosis Primary Impression: PEG tube malfunction Patient Instructions: General Instructions Additional Instructions: Follow with PCP. See ED worsening symptoms. G-tube was unclogged. Working fine here in the ED. Med/Other Pt SpecificInfo: No Change to Meds Disposition: 03 DISCHARGE TO SNF Condition: Stable Jorden Moreno Feb 22, 2017 11:35
[2017-02-22] MEDS ORDERED: TAMS0.4C4 G-TUBE (11:37)
[2017-02-22] MEDS ORDERED: TIZA2CAP3 G-TUBE (11:37)
[2017-02-22] MEDS ORDERED: TYLE325T G-TUBE (11:37)
[2017-02-22 15:01] VITALS: BP 130/66; PULSE 66; RESP 20; O2SAT 97
[2017-02-22 17:03] VITALS: BP 120/57; PULSE 54; RESP 20; O2SAT 97
== END 2017-02-22 17:08 ==
LOC: NEPE 11:03
DX: K94.23 Gastrostomy malfunction (principal); G82.50 Quadriplegia, unspecified; F90.9 Attention-deficit hyperactivity disorder, unspecified type; K21.9 Gastro-esophageal reflux disease without esophagitis; M81.0 Age-related osteoporosis without current pathological fracture; R56.9 Unspecified convulsions; Z79.82 Long term (current) use of aspirin; Z79.899 Other long term (current) drug therapy; Z87.820 Personal history of traumatic brain injury
CPT/HCPCS: 99283

== ENCOUNTER 2018-01-06 20:14 | Inpatient (IN) ==
[2018-01-06] MEDS ORDERED: Sodium Chlor 0.9% Inj 500 ML IV.SIG ONE (20:34)
--- NOTE | 2018-01-06 20:41 | ED ---
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 The patient was reportedly last given Tylenol approximately 1 hour ago and due to persistent fever of 102 was given Motrin 400 mg prior to being transported by ambulance services. The patient is nonverbal at baseline and is bedbound at baseline related to a traumatic brain injury with a persistent vegetative state. The patient is therefore unable to provide any history. According to ambulance services the long term did state that the patient has had a cough recently, however chest x-ray showed no acute abnormality. The patient was noted prior to arrival to have a sinus tachycardia in the 120s, GCS of 13 which is his baseline, blood pressure 110/60, room air saturations of 96%. Although according to ambulance services the patient did have a drop in his O2 sat to 90 % earlier in the day and was placed on 2 L nasal cannula O2 at the long term. The patient has a feeding tube in place. The patient has a diaper on, no Donald catheter or suprapubic catheter. The patient has no rashes or significant skin wounds reported. Related Data Home Medications Medication Instructions Recorded Confirmed aspirin 81 mg FEEDING TUBE DAILY 11/19/17 01/06/18 calcium carbonate-vitamin D3 1 tab DAILY 11/19/17 01/06/18 [Caltrate 600 + D] furosemide [Lasix] 20 mg FEEDING TUBE DAILY 11/19/17 01/06/18 glycopyrrolate 1 mg FEEDING TUBE Q8H 11/19/17 01/06/18 ipratropium-albuterol 3 ml INHALATION Q4H 11/19/17 01/06/18 lactose-reduced food with fibr 11/19/17 [Jevity 1.5 Cresencio] levetiracetam 500 mg FEEDING TUBE TID 11/19/17 01/06/18 omeprazole 10 mg FEEDING TUBE DAILY 11/19/17 01/06/18 polyethylene glycol 3350 17 g FEEDING TUBE HS 11/19/17 01/06/18 potassium chloride 10 meq DAILY 11/19/17 01/06/18 tamsulosin [Flomax] 0.4 mg DAILY 11/19/17 01/06/18 tizanidine 2 mg FEEDING TUBE Q8H 11/19/17 01/06/18 Allergies Allergy/AdvReac Type Severity Reaction Status Date / Time polymyxin B [From Polytrim] Allergy Severe Anaphylaxis Verified 11/04/17 09:11 trimethoprim [From Polytrim] Allergy Severe Anaphylaxis Verified 11/04/17 09:11 No Known Allergies Allergy Unknown Abdominal Uncoded 11/04/17 09:11 Pain Review of Systems ROS: all other systems reviewed are negative [facility] Medical History Medical History BPH (benign prostatic hyperplasia) (Acute) CHF (congestive heart failure) (Acute) Gastrostomy tube in place (Acute) Quadriparesis (Acute) TBI (traumatic brain injury) (Acute) Surgical History Surgical History History of brain shunt (Acute) Social History Social History Substance History: No History of Abuse Second Hand Smoke Exposure: No Smoking Status: Never smoker How Often Do You Have a Drink Containing Alcohol: Never Recent Travel in [facility] within the Last 8 Weeks: No Recent Out of Country Travel within the Last 8 Weeks: No Exam Const General: no acute distress and well developed Nutritional Appearance: well nourished Orientation: alert, awake, not oriented to person, not oriented to place and not oriented to time [facility] Head: normocephalic and atraumatic Nose: no nasal discharge and no epistaxis Mouth: moist mucous membranes Other: I am unable to visualize the posterior oropharynx as the patient clenches his mouth shut. Eyes Sclera: normal sclerae Pupils: PERRL Other: The patient has a disconjugate gaze at baseline. The patient has small cataract noted in the left eye. Neck Neck: no meningeal signs, trachea midline and no JVD Resp Effort & Inspection: no use of accessory muscles Auscultation: clear to auscultation bilaterally Cardio Rate: tachycardic (Sinus tachycardia in the 1 teens, no pulse deficits to the extremities on simultaneous auscultation and palpation of his radial artery) Rhythm: regular rhythm Heart Sounds: no gallops, no murmurs and no rubs GI Inspection: non-distended and other (The patient is noted to have a G-tube in place that appears in good repair without any outward signs of infection.) Palpation: soft, no hepatosplenomegaly and nontender Auscultation: normal bowel sounds Skin General: no rashes or lesions noted and dry skin (warm) Neuro General: alert, awake and other (The patient is reportedly at his baseline of mentation. The patient is in a persistent vegetative state related to a prior TBI. The patient has contractures of bilateral upper and lower extremities noted. The patient is nonverbal. The patient does not track with his vision.) Motor: no movement abnormalities noted Extrem General: normal to inspection, no clubbing, no cyanosis and no edema Course Consultations Consultation #1: The patient's case including history, pertinent physical examination findings, and laboratory studies were discussed with Dr. Lazaro. It was agreed that the patient would be admitted to the hospitalist service. Initial Documented Vital Signs Temperature 100.8 F H 01/06/18 20:23 Pulse Rate 118 H 01/06/18 20:23 Respiratory Rate 30 H 01/06/18 20:23 Blood Pressure 107/55 L 01/06/18 20:23 Pulse Oximetry 96 01/06/18 20:23 Last Documented Vital Signs Temperature 99.5 F 01/07/18 00:00 Pulse Rate 6 L 01/07/18 00:00 Respiratory Rate 22 01/07/18 00:00 Blood Pressure 141/79 H 01/07/18 00:00 Pulse Oximetry 100 01/07/18 00:00 Critical Care Time Critical Care Time: Yes Total Critical Care Time: 33 Attestation: Aggregate critical care time was 33 minutes. Time to perform other separately billable procedures was not included in the critical care time. My time did not include minutes spent treating any other patients simultaneously or on activities that did not directly contribute to the patient's treatment. The services I provided to this patient were to treat and/or prevent clinically significant deterioration that could result in: Respiratory failure related to pneumonia, versus fluid overload from volume resuscitation with crystalloid, versus cardiovascular collapse from sepsis I provided critical care services requiring my management, as noted below: Chart data review, documentation time, medication orders and management, vital sign assessments/reviewing monitor data, ordering and reviewing lab tests, ordering and interpreting/reviewing x-rays and diagnostic studies, care of the patient and discussion of the patient with the admitting physicians. Medical Decision Making MDM Narrative Medical decision making narrative: During the course of the patient's emergency department visit, the patient's history, examination, and differential diagnosis were reviewed with the patient. The patient was placed on a air sampling and monitoring with oximetry and frequent blood pressure monitoring. The patient had IV access obtained and blood work sent for analysis. A diagnostic evaluation was started regarding the patient's persistent fever over the last 2 days. The patient was initially provided normal saline IV fluids. The patient's temperature appeared to be coming down after the Tylenol and ibuprofen were administered prior to arrival. The patient's temperature will be monitored closely. The patient's chest x-ray revealed evidence of pneumonia that was bilateral. The patient was given cefepime 2 g IV, Zithromax 500 IV. The patient's diagnostic studies are remarkable for a white blood cell count of 12.9, hemoglobin 12.5, platelets 246 with a left shift, neutrophil percent 75.9 , PT 12.4, PTT 32.9. Chemistries remarkable for a CPK 546 with a normal MB percent, troponin I within normal limits, BMP within normal limits, lipase within normal limits, lactic acid 0.9. Urinalysis shows no signs of the patient 's chest x-ray was read by the reading radiologist as showing new pulmonary infiltrates consolidative on the left and non-consolidative on the right. The patient's results were discussed with the patient, including the plan of care. I explained that further testing and/ or monitoring is indicated based on the patient's history, examination, and/ or laboratory findings. Therefore, I recommended admission for additional evaluation. The patient expressed understanding and was agreeable with this plan. The patient was admitted to the hospital in guarded condition and sent to a bed under the care of the [facility] service. Medical Screen Exam Complete: Yes Emergency Medical Condition: Yes Differential Diagnosis Differential Diagnosis: Pneumonia, versus pyelonephritis, versus sepsis of undetermined origin Medical Records Medical records reviewed: Yes I reviewed the patient's medical records. Lab Data Lab results reviewed: Yes I reviewed the patient's lab results. Result diagrams: 01/06/18 20:40 01/06/18 20:40 Lab Results 01/06/18 01/06/18 01/06/18 Range/Units 20:40 20:40 20:40 WBC 12.9 H (4.0-11.0) th/mm3 RBC 4.00 L (4.50-5.90) mil/mm3 Hgb 12.5 L (13.0-17.0) gm/dL Hct 38.1 L (39.0-51.0) % MCV 95.3 (80.0-100.0) fL MCH 31.4 (27.0-34.0) pg MCHC 32.9 (32.0-36.0) % RDW 12.8 (11.6-17.2) % Plt Count 246 (150-450) th/mm3 MPV 9.1 (7.0-11.0) fL Neut % (Auto) 75.9 H (16.0-70.0) % Lymph % (Auto) 11.5 (9.0-44.0) % [place] % (Auto) 11.5 H (0.0-8.0) % Eos % (Auto) 0.8 (0.0-4.0) % Baso % (Auto) 0.3 (0.0-2.0) % Neut # (Auto) 9.8 H (1.8-7.7) th/mm3 Lymph # (Auto) 1.5 (1.0-4.8) th/mm3 [place] # (Auto) 1.5 H (0.0-0.9) th/mm3 Eos # (Auto) 0.1 (0.0-0.4) th/mm3 Baso # (Auto) 0.0 (0.0-0.2) th/mm3 WBC Differential . Differential Comment Auto diff final PT 12.4 H (9.8-11.6) sec INR 1.2 Ratio APTT 32.9 H (24.3-30.1) sec Sodium 140 (136-145) meq/L Potassium 3.7 (3.5-5.1) meq/L Chloride 107 (98-107) meq/L Carbon Dioxide 26.9 (21.0-32.0) meq/L Anion Gap 6 (5-15) meq/L BUN 10 (7-18) mg/dL Creatinine 0.79 (0.60-1.30) mg/dL Estimated GFR Greater than 89 (>89) mL/min Random Glucose 93 (74-106) mg/dL Lactic Acid (0.4-2.0) mmol/L Calcium 8.5 (8.5-10.1) mg/dL Magnesium 1.7 (1.5-2.5) mg/dL Total Bilirubin 0.6 (0.2-1.0) mg/dL AST 16 (15-37) U/L ALT 45 (12-78) U/L Alkaline Phosphatase 103 (45-117) U/L Total Creatine Kinase 546 H (39-308) U/L CK-MB (CK-2) Less than 1.0 (0.5-3.6) ng/mL CK-MB (CK-2) % 0.2 (0.0-4.0) % Troponin I Less than 0.02 L (0.02-0.05) ng/mL B-Natriuretic Peptide (0-100) pg/mL Total Protein 8.0 (6.4-8.2) g/dL Albumin 2.9 L (3.4-5.0) g/dL Lipase 30 L (73-393) U/L Urine Color (Yellw/Straw) Urine Clarity (Clear) Urine pH (5.0-8.5) Ur Specific [place] (1.002-1.035) Urine Protein (Neg-Trace) mg/dL Urine Glucose (UA) (Negative) mg/dL Urine Ketones (Negative) mg/dL Urine Occult Blood (Negative) Urine Nitrate (Negative) Urine Bilirubin (Negative) Urine Urobilinogen (Less than 2) mg/dL Ur Leukocyte Esterase (Negative) Urine RBC (0-3) /hpf Urine WBC (0-5) /hpf Urine Mucus (Occasional) /lpf Micro UA Comment Ur Microscopic Review Urine Culture Comments 01/06/18 01/06/18 01/06/18 Range/Units 20:40 20:40 20:45 WBC (4.0-11.0) th/mm3 RBC (4.50-5.90) mil/mm3 Hgb (13.0-17.0) gm/dL Hct (39.0-51.0) % MCV (80.0-100.0) fL MCH (27.0-34.0) pg MCHC (32.0-36.0) % RDW (11.6-17.2) % Plt Count (150-450) th/mm3 MPV (7.0-11.0) fL Neut % (Auto) (16.0-70.0) % Lymph % (Auto) (9.0-44.0) % [place] % (Auto) (0.0-8.0) % Eos % (Auto) (0.0-4.0) % Baso % (Auto) (0.0-2.0) % Neut # (Auto) (1.8-7.7) th/mm3 Lymph # (Auto) (1.0-4.8) th/mm3 [place] # (Auto) (0.0-0.9) th/mm3 Eos # (Auto) (0.0-0.4) th/mm3 Baso # (Auto) (0.0-0.2) th/mm3 WBC Differential Differential Comment PT (9.8-11.6) sec INR Ratio APTT (24.3-30.1) sec Sodium (136-145) meq/L Potassium (3.5-5.1) meq/L Chloride (98-107) meq/L Carbon Dioxide (21.0-32.0) meq/L Anion Gap (5-15) meq/L BUN (7-18) mg/dL Creatinine (0.60-1.30) mg/dL Estimated GFR (>89) mL/min Random Glucose (74-106) mg/dL Lactic Acid 0.9 (0.4-2.0) mmol/L Calcium (8.5-10.1) mg/dL Magnesium (1.5-2.5) mg/dL Total Bilirubin (0.2-1.0) mg/dL AST (15-37) U/L ALT (12-78) U/L Alkaline Phosphatase (45-117) U/L Total Creatine Kinase (39-308) U/L CK-MB (CK-2) (0.5-3.6) ng/mL CK-MB (CK-2) % (0.0-4.0) % Troponin I (0.02-0.05) ng/mL B-Natriuretic Peptide 3 (0-100) pg/mL Total Protein (6.4-8.2) g/dL Albumin (3.4-5.0) g/dL Lipase (73-393) U/L Urine Color [place] (Yellw/Straw) Urine Clarity Hazy H (Clear) Urine pH 6.0 (5.0-8.5) Ur Specific [place] 1.030 (1.002-1.035) Urine Protein 100 H (Neg-Trace) mg/dL Urine Glucose (UA) Negative (Negative) mg/dL Urine Ketones Negative (Negative) mg/dL Urine Occult Blood Negative (Negative) Urine Nitrate Negative (Negative) Urine Bilirubin Negative (Negative) Urine Urobilinogen 4 or greater (Less than 2) mg/dL Ur Leukocyte Esterase Negative (Negative) Urine RBC 1 (0-3) /hpf Urine WBC 1 (0-5) /hpf Urine Mucus Few H (Occasional) /lpf Micro UA Comment Cath-culture not ind Ur Microscopic Review Not Reportable Urine Culture Comments Cath-cult not ind Imaging Data Radiologist's impression: Chest X-Ray 01/06/18 20:34 CONCLUSION: There are new pulmonary infiltrates, consolidative on the left and nonconsolidative on the right. ECG Data Attestation: I personally reviewed and interpreted this ECG as follows: Interpretation: The patient had a EKG done on arrival. The patient's EKG reveals a sinus tachycardia rate of 116, QRS duration is 76 ms, QTC [address] segment elevation, nonspecific ST-T wave abnormalities, T waves are inverted in lead III. Discharge Plan Discharge Disposition Patient Disposition: 30 Still Patient Discharge Details Diagnosis: Pneumonia, SIRS (systemic inflammatory response syndrome) Physicians Team ED Provider: Sharon Beltre Primary Care Provider: Marcio Archibald Attending Provider: Steve Lazaro Status ED Status: Left Department Discharge Information Discharge Date/Time: 01/07/18 00:25
--- NOTE | 2018-01-06 21:03 | XR ---
EXAM DATE: 01/06/2018 8:49 PM EDT AGE/SEX: 27 years / Male INDICATIONS: Palpitations CLINICAL DATA: This is the patient's initial encounter. Patient reports that signs and symptoms have been present for 1 day and indicates a pain score of Nonresponsive. MEDICAL/SURGICAL HISTORY: . Hypertension. Seizures . Craniotomy COMPARISON: [facility], CHEST 1V SINGLE AP, 11/19/2017. [facility], CHEST 1V SINGLE AP, 11/04/2017. . FINDINGS: There are patchy areas of nonconsolidative infiltrate in the retrocardiac left lower lung with air br onchograms. Ill-defined opacity in the medial right midlung without consolidation. The pulmonary opac ities are new compared to prior chest x-ray. Both hemidiaphragms remain well delineated. Shunt tubing courses from the neck into the abdomen. The heart is enlarged, similar to prior. CONCLUSION: There are new pulmonary infiltrates, consolidative on the left and nonconsolidative on the right. Electronically signed by: Jose Velasquez MD 01/06/2018 9:01 PM EDT
[2018-01-06 21:12] LABS: Baso % (Auto) 0.3 % (0.0-2.0); Eos # (Auto) 0.1 th/mm3 (0.0-0.4); Eos % (Auto) 0.8 % (0.0-4.0); Hematocrit 38.1 % (39.0-51.0); Hemoglobin 12.5 gm/dL (13.0-17.0); Lymph # (Auto) 1.5 th/mm3 (1.0-4.8); Lymph % (Auto) 11.5 % (9.0-44.0); Mean Corpuscular HGB Conc 32.9 % (32.0-36.0); Mean Corpuscular Hemoglobin 31.4 pg (27.0-34.0); Mean Corpuscular Volume 95.3 fL (80.0-100.0); Mean Platelet Volume 9.1 fL (7.0-11.0); Mono # (Auto) 1.5 th/mm3 (0.0-0.9); Mono % (Auto) 11.5 % (0.0-8.0); Neut # (Auto) 9.8 th/mm3 (1.8-7.7); Neut % (Auto) 75.9 % (16.0-70.0); Platelet Count 246 th/mm3 (150-450); Red Cell Distribution Width 12.8 % (11.6-17.2); White Blood Count 12.9 th/mm3 (4.0-11.0)
[2018-01-06 21:15] LABS: Bilirubin,Urine Negative (Negative); Clarity,Urine Hazy (Clear); Color,Urine Amber (Yellw/Straw); Glucose,Urine (UA) Negative (Negative); Leukocyte Esterase,Urine Negative (Negative); Mucus,Urine Few /lpf (Occasional); Nitrite,Urine Negative (Negative); Urobilinogen,Urine 4 or Greater mg/dL (Less than 2)
[2018-01-06 21:26] LABS: Activated Partial Thrombo Time 32.9 sec (24.3-30.1); INR 1.2 Ratio; Prothrombin Time 12.4 sec (9.8-11.6)
[2018-01-06 21:31] LABS: Alanine Aminotransferase 45 U/L (12-78); Albumin 2.9 g/dL (3.4-5.0); Anion Gap 6 meq/L (5-15); Aspartate Aminotransferase 16 U/L (15-37); Blood Urea Nitrogen 10 mg/dL (7-18); Calcium 8.5 mg/dL (8.5-10.1); Carbon Dioxide 26.9 meq/L (21.0-32.0); Chloride 107 meq/L (98-107); Glomerular Filtration Rate Greater Than 89 mL/min (>89); Glucose,Random 93 mg/dL (74-106); Lipase 30 U/L (73-393); Magnesium 1.7 mg/dL (1.5-2.5); Potassium 3.7 meq/L (3.5-5.1); Sodium 140 meq/L (136-145)
[2018-01-06 21:35] LABS: Alkaline Phosphatase 103 U/L (45-117); Creatine Kinase 546 U/L (39-308)
[2018-01-06 21:48] LABS: CKMB Percent 0.2 % (0.0-4.0)
[2018-01-06] MEDS ORDERED: Azithromycin Inj 500 MG in Sodium Chlor 0.9% Inj 250 ML IV.SIG STA (21:52)
[2018-01-06] MEDS ORDERED: Vancomycin Consult Pharmacy OTHER PRN (22:17)
[2018-01-06] MEDS ORDERED: Bisacodyl 10 MG Supp RECTAL PRN (22:18)
[2018-01-07] MEDS: Vancomycin Inj 1,000 MG in Sodium Chlor 0.9% Inj 250 ML IV.SIG SCH ×3 (01:26→15:56)
[2018-01-07] MEDS: Piperacil/Tazo 4.5 GM Premix 4.5 GM/100 ML BAG IV.SIG SCH ×4 (01:42→17:02)
[2018-01-07] MEDS: Sod Chloride 0.9% Inj 1,000 ML IV.CONT SCH ×3 (01:45→19:42)
--- NOTE | 2018-01-07 03:13 | P.HPIM ---
History of Present Illness Primary Care Physician: Marcio Archibald MD History of Present Illness: 27-year-old male with a history of traumatic brain injury, hydrocephalus status post [employer] shunt, nonverbal at baseline, who is sent in from facility due to altered mental status. Patient is nonverbal and history is obtained from the ED physician, chart review. Family not at bedside at the time of evaluation. Inpatient Certification: I certify that the inpatient services were ordered in accordance with Medicare regulations governing the order. This includes certification that hospital inpatient services are reasonable and necessary and in the case of services not specified as inpatient-only under 42 CFR 419.22(n), that they are appropriately provided as inpatient services in accordance to with the 2-midnight benchmark under 43 CFR 412.3(e) Estimated Total Length of Stay (Days): 3 Plans for Post Hospital Care: SNF [facility] - History History Provided By: Medical Record, Keyboard Action Assembler / EMT - Medical History Medical History: Medical History (Last Reviewed 01/06/18 @ 20:45 by Sharon Beltre MD) BPH (benign prostatic hyperplasia) CHF (congestive heart failure) Gastrostomy tube in place Quadriparesis TBI (traumatic brain injury) - Surgical History Surgical History: Surgical History (Last Reviewed 01/06/18 @ 20:45 by Sharon Beltre MD) History of brain shunt - Tobacco History Second Hand Smoke Exposure: No Smoking Status: Never smoker - Alcohol History How Often Do You Have a Drink Containing Alcohol: Never - Substance Use History Substance History: No History of Abuse - Travel History Recent Travel in the [place] Within the Last 8 Weeks: No Recent Travel Out of the Country Within the Last 8 Weeks: No - Immunization History Tetanus Immunization: Unable to Assess Hx Influenza Vaccine This Season: Unable to Assess Medications and Allergies Active Medications: Active Medications Al Hydroxide/Mg Hydroxide (Milk Of Magnesia Liq) 30 ml PO Q12H PRN PRN Reason: Mild Constipation Bisacodyl (Dulcolax Supp) 10 mg RECTAL DAILY PRN PRN Reason: SEVERE CONSITIPATION Azithromycin 500 mg/ Sodium (Chloride) 250 mls @ 250 mls/hr IV.SIG Q24H [facility] Piperacillin/Tazobactam/Dextrose (Zosyn 4.5 Gm Premix) 4.5 gm in 100 mls @ 200 mls/hr IV.SIG Q6H [facility] Last Admin: 09/25/18 01:42 Dose: 200 mls/hr Sodium Chloride (Ns Inj) 1,000 mls @ 100 mls/hr IV.CONT .Q10H [facility] Last Admin: 01/07/18 01:45 Dose: 100 mls/hr Vancomycin HCl 1,000 mg/ (Sodium Chloride) 250 mls @ 250 mls/hr IV.SIG Q8H [facility] Last Admin: 01/07/18 01:26 Dose: 250 mls/hr Lactulose (Lactulose Liq) 30 ml PO DAILY PRN PRN Reason: SEVERE CONSITIPATION Miscellaneous Information ([facility] Ordered Lab Info) 0 each OTHER ONCE ONE Stop: 01/08/18 07:46 Pharmacy Profile Note (Vancomycin Consult Pharmacy) 1 each OTHER UNSCH PRN PRN Reason: Pharmacy to dose Sennosides (Senokot) 17.2 mg PO Q12H PRN PRN Reason: Moderate Constipation Sodium Chloride (Ns Flush) 2 ml IV.FLUSH BID [facility]SELMO Sodium Chloride (Ns Flush) 2 ml IV.FLUSH PRN PRN PRN Reason: FLUSH AFTER USING IV ACCESS Allergies Allergy/AdvReac Type Severity Reaction Status Date / Time polymyxin B [From Polytrim] Allergy Severe Anaphylaxis Verified 11/04/17 09:11 trimethoprim [From Polytrim] Allergy Severe Anaphylaxis Verified 11/04/17 09:11 No Known Allergies Allergy Unknown Abdominal Uncoded 11/04/17 09:11 Pain Home Medications Medication Instructions Recorded Confirmed Type aspirin 81 mg FEEDING TUBE DAILY 11/19/17 01/06/18 History calcium carbonate-vitamin D3 1 tab DAILY 11/19/17 01/06/18 History [Caltrate 600 + D] furosemide [Lasix] 20 mg FEEDING TUBE DAILY 11/19/17 01/06/18 History glycopyrrolate 1 mg FEEDING TUBE Q8H 11/19/17 01/06/18 History ipratropium-albuterol 3 ml INHALATION Q4H 11/19/17 01/06/18 History lactose-reduced food with fibr 11/19/17 History [Jevity 1.5 Cresencio] levetiracetam 500 mg FEEDING TUBE TID 11/19/17 01/06/18 History omeprazole 10 mg FEEDING TUBE DAILY 11/19/17 01/06/18 History polyethylene glycol 3350 17 g FEEDING TUBE HS 11/19/17 01/06/18 History potassium chloride 10 meq DAILY 11/19/17 01/06/18 History tamsulosin [Flomax] 0.4 mg DAILY 11/19/17 01/06/18 History tizanidine 2 mg FEEDING TUBE Q8H 11/19/17 01/06/18 History Exam Vital signs: Vital Signs 01/06/18 20:23 01/06/18 20:34 01/06/18 23:13 Temperature 100.8 F H Pulse Rate 118 H 99 H Respiratory Rate 30 H 24 Blood Pressure 107/55 L 115/86 Pulse Oximetry 96 98 99 01/07/18 00:00 Temperature 99.5 F Pulse Rate 6 L Respiratory Rate 22 Blood Pressure 141/79 H Pulse Oximetry 100 Intake & Output 01/06/18 01/06/18 01/07/18 06:59 18:59 06:59 Intake Total 850 / 850 Balance 850 / 850 Weight 66.678 kg Intake: IV 850 / 850 Azithromycin Inj 500 MG In NS 250 / 250 Inj 250 ML @ 250 mls/hr IV.SIG STAT STA Rx#:[id number] Maxipime Inj 2,000 MG In NS Inj 100 / 100 100 ML @ 200 mls/hr IV.SIG STAT STA Rx#:[id number] NS Inj 500 ML @ Wide Open IV. 500 / 500 SIG BOLUS ONE Rx#:[id number] Narrative: GENERAL: Sitting up in bed. Nonverbal. SKIN: Warm and dry. HEAD: Atraumatic. Normocephalic. EYES: Pupils equal and round. No scleral icterus. No injection or drainage. ENT: No nasal bleeding or discharge. Mucous membranes pink and moist. NECK: Trachea midline. No JVD. CARDIOVASCULAR: Regular rate and rhythm. RESPIRATORY: No accessory muscle use. Patient coughs, rhonchi bilaterally.. Breath sounds equal bilaterally. GASTROINTESTINAL: Abdomen soft, non-tender, nondistended. Hepatic and splenic margins not palpable. PEG tube in place without any surrounding leakage or erythema. MUSCULOSKELETAL: Extremities without clubbing, cyanosis, or edema. No obvious deformities. NEUROLOGICAL: Awake and alert. Patient with contractures. Does not obey commands. Results - Labs CBC & Chem 7: 01/06/18 20:40 01/06/18 20:40 Labs: Short CBC 01/06/18 Range/Units 20:40 WBC 12.9 H (4.0-11.0) th/mm3 Hgb 12.5 L (13.0-17.0) gm/dL Hct 38.1 L (39.0-51.0) % Plt Count 246 (150-450) th/mm3 BMP 01/06/18 20:40 Sodium 140 Potassium 3.7 Chloride 107 Carbon Dioxide 26.9 BUN 10 Creatinine 0.79 Calcium 8.5 Cardiac Enzymes 01/06/18 Range/Units 20:40 Total Creatine Kinase 546 H (39-308) U/L CK-MB (CK-2) Less than 1.0 (0.5-3.6) ng/mL Troponin I Less than 0.02 L (0.02-0.05) ng/mL Liver Function 01/06/18 Range/Units 20:40 Total Bilirubin 0.6 (0.2-1.0) mg/dL AST 16 (15-37) U/L ALT 45 (12-78) U/L Alkaline Phosphatase 103 (45-117) U/L Albumin 2.9 L (3.4-5.0) g/dL Urine 01/06/18 Range/Units 20:40 Urine Color Prachi (Yellw/Straw) Urine Clarity Hazy H (Clear) Urine pH 6.0 (5.0-8.5) Ur Specific [place] 1.030 (1.002-1.035) Urine Protein 100 H (Neg-Trace) mg/dL Urine Glucose (UA) Negative (Negative) mg/dL - Imaging Impressions Chest X-Ray 01/06/18 20:34 CONCLUSION: There are new pulmonary infiltrates, consolidative on the left and nonconsolidative on the right. Caprini VTE Risk Assessment Caprini VTE Risk Assessment: Moderate/High Risk (score >= 2) Caprini Risk Assessment Model: Point Value = 1 Point Value = 2 Point Value = 3 Point Value = 5 Age 41-60 Minor surgery BMI > 25 kg/m2 Swollen legs Varicose veins or History of unexplained or recurrent spontaneous Oral contraceptives or hormone replacement Sepsis (< 1 month) Serious lung disease, including pneumonia (< 1 month) Abnormal pulmonary function Acute myocardial infarction Congestive heart failure (< 1 month) History of inflammatory bowel disease Medical patient at bed rest Age 61-74 Arthroscopic surgery Major open surgery (> 45 min) Laparoscopic surgery (> 45 min) Malignancy Confined to bed (> 72 hours) Immobilizing plaster cast Central venous access Age >= 75 History of VTE Family history of VTE Factor V Leiden Prothrombin [id number] Lupus anticoagulant Anticardiolipin antibodies Elevated serum homocysteine Heparin-induced thrombocytopenia Other congenital or acquired thrombophilia Stroke (< 1 month) Elective arthroplasty Hip, pelvis, or leg fracture Acute spinal cord injury (< 1 month) Prophylaxis Regimen: Total Risk Factor Score Risk Level Prophylaxis Regimen 0-1 Low Early ambulation 2 Moderate Order ONE of the following: *Sequential Compression Device (SCD) *Heparin 5000 units SQ BID 3-4 Higher Order ONE of the following medications: *Heparin 5000 units SQ TID *Enoxaparin/Lovenox 40 mg SQ daily (WT < 150 kg, CrCl > 30 mL/min) *Enoxaparin/Lovenox 30 mg SQ daily (WT < 150 kg, CrCl > 10-29 mL/min) *Enoxaparin/Lovenox 30 mg SQ BID (WT < 150 kg, CrCl > 30 mL/min) AND/OR *Sequential Compression Device (SCD) 5 or more Highest Order ONE of the following medications: *Heparin 5000 units SQ TID (Preferred with Epidurals) *Enoxaparin/Lovenox 40 mg SQ daily (WT < 150 kg, CrCl > 30 mL/min) *Enoxaparin/Lovenox 30 mg SQ daily (WT < 150 kg, CrCl > 10-29 mL/min) *Enoxaparin/Lovenox 30 mg SQ BID (WT < 150 kg, CrCl > 30 mL/min) AND *Sequential Compression Device (SCD) Assessment and Plan - Plan //Sepsis //Suspected aspiration pneumonia = With leukocytosis, fever of 100.8, tachycardia with heart rate of 118 on admission, respiratory rate of 30. = Pneumonia as seen on chest x-ray. = Keep n.p.o. Check abdominal film = Lactate within normal limits. Broad-spectrum antibiotics. Follow-up cultures. //History of traumatic brain injury. = On chronic tube feeds. Will place n.p.o. for now. //History of seizure disorder = Continue home medications. //History of constipation = We will check abdominal film. //Elevated CK. In the 500s. Secondary to systemic illness. Discussed Condition With: nurse, ED physician
[2018-01-07] MEDS ORDERED: TIZANIDINE 2 MG FEED TUBE SCH (04:00)
[2018-01-07 09:04] LABS: Baso % (Auto) 0.3 % (0.0-2.0); Eos # (Auto) 0.2 th/mm3 (0.0-0.4); Eos % (Auto) 1.5 % (0.0-4.0); Hematocrit 34.1 % (39.0-51.0); Hemoglobin 11.5 gm/dL (13.0-17.0); Lymph # (Auto) 1.6 th/mm3 (1.0-4.8); Lymph % (Auto) 15.4 % (9.0-44.0); Mean Corpuscular HGB Conc 33.7 % (32.0-36.0); Mean Corpuscular Hemoglobin 32.3 pg (27.0-34.0); Mean Corpuscular Volume 95.7 fL (80.0-100.0); Mean Platelet Volume 9.3 fL (7.0-11.0); Mono # (Auto) 1.3 th/mm3 (0.0-0.9); Mono % (Auto) 12.3 % (0.0-8.0); Neut # (Auto) 7.2 th/mm3 (1.8-7.7); Neut % (Auto) 70.5 % (16.0-70.0); Platelet Count 228 th/mm3 (150-450); Red Blood Count 3.56 mil/mm3 (4.50-5.90); Red Cell Distribution Width 12.8 % (11.6-17.2); White Blood Count 10.2 th/mm3 (4.0-11.0)
[2018-01-07] MEDS: Sodium Chloride 0.9% 2 ML Flush BID IV.FLUSH SCH ×2 (09:04→21:40)
[2018-01-07 09:31] LABS: Albumin 2.6 g/dL (3.4-5.0); Anion Gap 8 meq/L (5-15); Aspartate Aminotransferase 16 U/L (15-37); Blood Urea Nitrogen 8 mg/dL (7-18); Carbon Dioxide 26.5 meq/L (21.0-32.0); Chloride 110 meq/L (98-107); Glomerular Filtration Rate Greater Than 89 mL/min (>89); Glucose,Random 101 mg/dL (74-106); Potassium 3.5 meq/L (3.5-5.1); Sodium 144 meq/L (136-145)
[2018-01-07 09:36] LABS: Alanine Aminotransferase 37 U/L (12-78); Alkaline Phosphatase 86 U/L (45-117); Total Protein 7.1 g/dL (6.4-8.2)
--- NOTE | 2018-01-07 10:58 | XR ---
EXAM DATE: 01/07/2018 12:00 AM EDT AGE/SEX: 27 years / Male INDICATIONS: Constipation CLINICAL DATA: This is the patient's subsequent encounter. Patient reports that signs and symptoms h ave been present for 2 days and indicates a pain score of Nonresponsive. MEDICAL/SURGICAL HISTORY: Seizures. Hypertension. Craniotomy. shunt COMPARISON: [facility] [place], [facility], 11/19/2017. . FINDINGS: There is a mild diffuse ileus. Shunt tubing ends in the right abdomen. Previous reinaldo fixation left fe mur. Mild scoliosis. No free air. Mild rectal constipation. CONCLUSION: Mild rectal constipation. Diffuse ileus. Electronically signed by: Juan Gorman MD 01/07/2018 10:56 AM EDT
[2018-01-07] MEDS: Bisacodyl 10 MG Supp RECTAL SCH (15:55)
--- NOTE | 2018-01-07 18:19 | ECG ---
Date Performed: 01/06/2018 Time Performed: 20:24:59 PTAGE: 27 years EKG: SINUS TACHYCARDIA MODERATE VOLTAGE CRITERIA FOR LVH, CONSIDER NORMAL VARIANT NONSPECIFIC T- WAVE ABNORMALITY Since the previous tracing, no significant change noted ABNORMAL RHYTHM ECG NO PREVIOUS TRACING DOCTOR: Tanner Prescott Interpretating Date/Time 01/07/2018 18:17:40
[2018-01-07] MEDS: Sodium Chloride 0.9% 2 ML Flush PRN IV.FLUSH (21:40)
[2018-01-08] MEDS: Piperacil/Tazo 4.5 GM Premix 4.5 GM/100 ML BAG IV.SIG SCH ×5 (00:14→22:47)
[2018-01-08] MEDS: Azithromycin Inj 500 MG in Sodium Chlor 0.9% Inj 250 ML IV.SIG SCH ×2 (00:20→23:24)
[2018-01-08] MEDS: Vancomycin Inj 1,000 MG in Sodium Chlor 0.9% Inj 250 ML IV.SIG SCH ×3 (00:55→15:04)
[2018-01-08] MEDS: Sod Chloride 0.9% Inj 1,000 ML IV.CONT SCH ×3 (05:15→20:46)
[2018-01-08 05:41] LABS: Blood Urea Nitrogen 7 mg/dL (7-18); Glomerular Filtration Rate Greater Than 89 mL/min (>89)
[2018-01-08] MEDS ORDERED: Pharmacy Ordered Lab Info OTHER ONE (07:45)
[2018-01-08] MEDS: Bisacodyl 10 MG Supp RECTAL SCH ×2 (08:07→09:52)
[2018-01-08] MEDS: Sodium Chloride 0.9% 2 ML Flush BID IV.FLUSH SCH ×2 (09:52→20:28)
--- NOTE | 2018-01-08 18:47 | P.PN ---
Subjective Interval history: Patient is seen lying in bed. Nursing reports small bowel movement. No adverse events overnight. Patient nonverbal. Physical Exam Vital signs: Vital Signs 01/07/18 20:15 01/08/18 00:00 01/08/18 00:17 Temperature 98.8 F Pulse Rate 109 H 87 87 Respiratory Rate 14 20 20 Blood Pressure 133/52 L Pulse Oximetry 98 01/08/18 04:00 01/08/18 04:16 01/08/18 07:00 Temperature 98.6 F Pulse Rate 104 H 85 Respiratory Rate 20 18 12 Blood Pressure 96/68 L Pulse Oximetry 98 01/08/18 08:00 01/08/18 08:11 01/08/18 08:13 Temperature 97.4 F L Pulse Rate 69 85 Respiratory Rate 17 14 Blood Pressure 101/61 Pulse Oximetry 99 95 01/08/18 11:33 01/08/18 12:00 01/08/18 15:33 Temperature 97.3 F L Pulse Rate 85 77 77 Respiratory Rate 13 18 18 Blood Pressure 115/69 Pulse Oximetry 100 01/08/18 15:34 01/08/18 16:00 Temperature 97.9 F Pulse Rate 79 Respiratory Rate 18 Blood Pressure 106/70 Pulse Oximetry 100 100 Intake & Output 01/07/18 01/08/18 01/08/18 18:59 06:59 18:59 Intake Total 1700 / 1700 2700 / 2700 1700 / 1700 Output Total 2700 / 2700 675 / 675 Balance 1700 / 1700 0 / 0 1025 / 1025 Intake: IV 1700 / 1700 2700 / 2700 1700 / 1700 NS Inj 1,000 ML @ 100 mls/hr IV 1000 / 1000 2000 / 2000 1000 / 1000 .CONT .Q10H [facility] Rx#:[id number] Azithromycin Inj 500 MG In NS 250 / 250 Inj 250 ML @ 250 mls/hr IV.SIG Q24H [facility] Rx#:[id number] Zosyn 4.5 GM Premix 4.5 gm In 200 / 200 200 / 200 200 / 200 100 ml @ 200 mls/hr IV.SIG Q6H [facility] Rx#:[id number] Vancomycin Inj 1,000 MG In NS 500 / 500 250 / 250 500 / 500 Inj 250 ML @ 250 mls/hr IV.SIG Q8H [facility] Rx#:[id number] Output: Urine 2700 / 2700 675 / 675 Other: # Incontinent Voids 1 Narrative: GENERAL: Well-nourished, well-developed adult male in no obvious distress. SKIN: Focused exam-warm and dry. HEAD: Atraumatic. Normocephalic. CARDIOVASCULAR: Regular rate and rhythm. RESPIRATORY: No accessory muscle use. Clear to auscultation. Breath sounds equal bilaterally. GASTROINTESTINAL: Abdomen soft, non-tender, distended. Positive bowel sounds. PEG tube in place. MUSCULOSKELETAL: Significant contractures and muscle wasting -all chronic appearing NEUROLOGICAL: Nonverbal. Eye movement with possible brief eye contact; difficult to assess comprehension. - Urinary Catheter Management Straight Cath placed during this visit: yes, but has since been removed by the nurse Reason for continuing: Not indwelling catheter Insertion date: 01/06/18 Insertion time: 20:45 Removal date: 01/06/18 Removal time: 20:47 Results - Labs CBC & Chem 7: 01/07/18 07:57 01/09/18 06:38 Laboratory Results - last 24 hr 01/08/18 01/08/18 01/08/18 04:37 10:02 10:56 BUN 7 Creatinine 0.87 Estimated GFR Greater than 89 POC Glucose 114 H Vancomycin Trough 13.3 H Microbiology 01/06/18 20:45 Blood - Peripheral Aerobic Blood Culture - Preliminary Staphylococcus coag negative 01/06/18 20:45 Blood - Peripheral Anaerobic Blood Culture - Preliminary gram positive cocci 01/06/18 20:40 Blood - Peripheral Aerobic Blood Culture - Preliminary No growth in 2 days 01/06/18 20:40 Blood - Peripheral Anaerobic Blood Culture - Preliminary No growth in 2 days Assessment and Plan - Plan Patient is a 27-year-old male with a history of traumatic brain injury, [employer] shunt; nonverbal at baseline, transferred from the SNF where he lives due to altered mental status. //Sepsis //Suspected aspiration pneumonia = With leukocytosis, fever of 100.8, tachycardia with heart rate of 118 on admission, respiratory rate of 30. = Pneumonia as seen on chest x-ray. = Lactate within normal limits. Broad-spectrum antibiotics. Follow-up cultures. //History of traumatic brain injury. = On chronic tube feeds. Dietary consulted for assistance in management. Per nursing, Report from facility indicated that he was on Jevity 1.5 at 75 mL's an hour between 8 PM and 6 AM. //History of seizure disorder = Continue home medications. //Mild ileus with history of constipation = Initial x-ray indicates constipation with mild ileus. Suppositories until bowel movement. //Elevated CK. Secondary to systemic illness. Discussed Condition With: nurse, ED physician
[2018-01-09] MEDS: Vancomycin Inj 1,000 MG in Sodium Chlor 0.9% Inj 250 ML IV.SIG SCH ×3 (00:32→16:38)
[2018-01-09] MEDS: Sod Chloride 0.9% Inj 1,000 ML IV.CONT SCH ×2 (04:29→10:27)
[2018-01-09] MEDS: Piperacil/Tazo 4.5 GM Premix 4.5 GM/100 ML BAG IV.SIG SCH ×4 (04:57→22:38)
[2018-01-09] MEDS: Sodium Chloride 0.9% 2 ML Flush BID IV.FLUSH SCH ×2 (08:19→21:40)
[2018-01-09] MEDS: Bisacodyl 10 MG Supp RECTAL SCH (08:19)
[2018-01-09 08:26] LABS: Blood Urea Nitrogen 5 mg/dL (7-18); Glomerular Filtration Rate Greater Than 89 mL/min (>89)
--- NOTE | 2018-01-09 10:23 | XR ---
EXAM DATE: 01/09/2018 12:00 AM EDT AGE/SEX: 27 years / Male INDICATIONS: Ileus. CLINICAL DATA: This is the patient's subsequent encounter. Patient reports that signs and symptoms h ave been present for 4 - 6 days and indicates a pain score of Nonresponsive. MEDICAL/SURGICAL HISTORY: . Seizures. Hypertension. Craniotomy. Shunt . COMPARISON: [facility] [place], [facility], 01/07/2018. . FINDINGS: There is a diffuse mild ileus. Findings are similar to January 07. Shunt tubing ends in mid abdomen . Previous fixation left femur. No evidence for obstruction or free air. CONCLUSION: Mild ileus, stable. Electronically signed by: Juan Gorman MD 01/09/2018 10:22 AM EDT
--- NOTE | 2018-01-09 12:49 | P.PN ---
Subjective Interval history: Patient again seen lying in bed. Remains nonverbal which is his baseline. Nursing reports no adverse events. He has had a larger bowel movement. Physical Exam Vital signs: Vital Signs 01/08/18 15:33 01/08/18 15:34 01/08/18 16:00 Temperature 97.9 F Pulse Rate 77 79 Respiratory Rate 18 18 Blood Pressure 106/70 Pulse Oximetry 100 100 01/08/18 19:19 01/08/18 20:00 01/08/18 23:15 Temperature 98.4 F Pulse Rate 79 90 75 Respiratory Rate 20 17 18 Blood Pressure 136/70 Pulse Oximetry 100 01/09/18 00:00 01/09/18 03:26 01/09/18 04:00 Temperature 98.7 F 97.8 F Pulse Rate 85 85 82 Respiratory Rate 17 16 17 Blood Pressure 128/59 L 118/55 L Pulse Oximetry 99 95 01/09/18 08:00 01/09/18 08:26 01/09/18 11:25 Temperature 97.8 F Pulse Rate 75 67 78 Respiratory Rate 19 16 16 Blood Pressure 125/74 Pulse Oximetry 98 99 01/09/18 12:00 Temperature 97.6 F Pulse Rate 78 Respiratory Rate 21 Blood Pressure 117/79 Pulse Oximetry 92 L Intake & Output 01/08/18 01/09/18 01/09/18 18:59 06:59 18:59 Intake Total 1700 / 1700 700 / 700 1350 / 1350 Output Total 675 / 675 1400 / 1400 Balance 1025 / 1025 -700 / -700 1350 / 1350 Weight 68.1 kg Intake: IV 1700 / 1700 700 / 700 1350 / 1350 NS Inj 1,000 ML @ 100 mls/hr IV 1000 / 1000 1000 / 1000 .CONT .Q10H [facility] Rx#:[id number] Azithromycin Inj 500 MG In NS 250 / 250 Inj 250 ML @ 250 mls/hr IV.SIG Q24H [facility] Rx#:[id number] Zosyn 4.5 GM Premix 4.5 gm In 200 / 200 200 / 200 100 / 100 100 ml @ 200 mls/hr IV.SIG Q6H AN[facility] Rx#:[id number] Vancomycin Inj 1,000 MG In NS 500 / 500 250 / 250 250 / 250 Inj 250 ML @ 250 mls/hr IV.SIG Q8H ANSELMO Rx#:[id number] Output: Urine 675 / 675 1400 / 1400 Other: # Incontinent Bowel Movements 1 Narrative: GENERAL: Well-nourished, well-developed adult male in no obvious distress. SKIN: Focused exam-warm and dry. HEAD: Atraumatic. Normocephalic. CARDIOVASCULAR: Regular rate and rhythm. RESPIRATORY: No accessory muscle use. Clear to auscultation. Breath sounds equal bilaterally. GASTROINTESTINAL: Abdomen soft, non-tender, distended. Positive bowel sounds. PEG tube in place. MUSCULOSKELETAL: Significant contractures and muscle wasting -all chronic appearing NEUROLOGICAL: Nonverbal. Eye movement with possible brief eye contact; difficult to assess comprehension. - Urinary Catheter Management Straight Cath placed during this visit: yes, but has since been removed by the nurse Reason for continuing: Not indwelling catheter Insertion date: 01/06/18 Insertion time: 20:45 Removal date: 01/06/18 Removal time: 20:47 Results - Labs CBC & Chem 7: 01/07/18 07:57 01/09/18 06:38 Laboratory Results - last 24 hr 01/09/18 01/09/18 06:38 07:14 BUN 5 L Creatinine 1.00 Estimated GFR Greater than 89 POC Glucose 88 Microbiology 01/06/18 20:40 Blood - Peripheral Aerobic Blood Culture - Preliminary No growth in 3 days 01/06/18 20:40 Blood - Peripheral Anaerobic Blood Culture - Preliminary gram positive cocci 01/06/18 20:45 Blood - Peripheral Aerobic Blood Culture - Preliminary Staphylococcus coag negative 01/06/18 20:45 Blood - Peripheral Anaerobic Blood Culture - Preliminary Staphylococcus coag negative - Imaging Impressions Abdomen X-Ray 01/09/18 00:00 CONCLUSION: Mild ileus, stable. Assessment and Plan - Plan Patient is a 27-year-old male with a history of traumatic brain injury, [employer] shunt; nonverbal at baseline, transferred from the SNF where he lives due to altered mental status. 01/09 : Continue current medical plan. Trial restarting tube feed. monitor ileus. //Sepsis //Suspected aspiration pneumonia = With leukocytosis, fever of 100.8, tachycardia with heart rate of 118 on admission, respiratory rate of 30. = Pneumonia as seen on chest x-ray. = Lactate within normal limits. Broad-spectrum antibiotics. Follow-up cultures. //History of traumatic brain injury. = On chronic tube feeds. Dietary consulted for assistance in management. Per nursing, Report from facility indicated that he was on Jevity 1.5 at 75 mL's an hour between 8 PM and 6 AM (?). //History of seizure disorder = Continue home medications. //Mild ileus with history of constipation = Initial x-ray indicates constipation with mild ileus. Suppositories until bowel movement. //Elevated CK. Secondary to systemic illness. Discussed Condition With: nurse, ED physician
[2018-01-09 13:45] LABS: Baso % (Auto) 0.2 % (0.0-2.0); Eos # (Auto) 0.1 th/mm3 (0.0-0.4); Hematocrit 37.2 % (39.0-51.0); Hemoglobin 12.1 gm/dL (13.0-17.0); Lymph # (Auto) 1.3 th/mm3 (1.0-4.8); Lymph % (Auto) 14.9 % (9.0-44.0); Mean Corpuscular HGB Conc 32.6 % (32.0-36.0); Mean Corpuscular Hemoglobin 31.6 pg (27.0-34.0); Mean Platelet Volume 8.7 fL (7.0-11.0); Mono # (Auto) 1.3 th/mm3 (0.0-0.9); Mono % (Auto) 14.6 % (0.0-8.0); Neut # (Auto) 6.2 th/mm3 (1.8-7.7); Neut % (Auto) 69.3 % (16.0-70.0); Platelet Count 275 th/mm3 (150-450); Red Blood Count 3.83 mil/mm3 (4.50-5.90); Red Cell Distribution Width 12.6 % (11.6-17.2)
[2018-01-09 14:14] LABS: Anion Gap 8 meq/L (5-15); Blood Urea Nitrogen 5 mg/dL (7-18); Calcium 8.8 mg/dL (8.5-10.1); Carbon Dioxide 28.8 meq/L (21.0-32.0); Chloride 115 meq/L (98-107); Glomerular Filtration Rate Greater Than 89 mL/min (>89); Glucose,Random 92 mg/dL (74-106); Potassium 3.2 meq/L (3.5-5.1); Sodium 152 meq/L (136-145)
[2018-01-09] MEDS ORDERED: Pharmacy Ordered Lab Info OTHER ONE (15:45)
[2018-01-09] MEDS: KCL 20 mEq/D5W/NaCl 0.45% Inj 1,000 ML IV.CONT SCH (16:03)
[2018-01-09] MEDS: Sodium Chloride 0.9% 2 ML Flush PRN IV.FLUSH (21:40)
[2018-01-09 22:13] LABS: Calcium 8.3 mg/dL (8.5-10.1); Carbon Dioxide 27.1 meq/L (21.0-32.0)
[2018-01-09 22:17] LABS: Potassium 2.8 meq/L (3.5-5.1)
[2018-01-09] MEDS: Azithromycin Inj 500 MG in Sodium Chlor 0.9% Inj 250 ML IV.SIG SCH (22:36)
[2018-01-09] MEDS ORDERED: Mag Sulf 1 gm/100 ml Premix 100 ML IV.SIG ONE (23:00)
[2018-01-10] MEDS: Potassium Chlor 20 mEq Premix 20 MEQ/100 ML PIGGYBACK IV.SIG SCH ×2 (01:54→03:51)
[2018-01-10] MEDS: Piperacil/Tazo 4.5 GM Premix 4.5 GM/100 ML BAG IV.SIG SCH ×4 (05:20→23:22)
[2018-01-10] MEDS ORDERED: Potassium Chloride 20 MEQ Pwd Pkt NG/OG ONE (07:31)
[2018-01-10] MEDS: KCL 20 mEq/D5W/NaCl 0.45% Inj 1,000 ML IV.CONT SCH ×2 (09:16→18:52)
[2018-01-10] MEDS: Bisacodyl 10 MG Supp RECTAL SCH (09:17)
[2018-01-10] MEDS: Sodium Chloride 0.9% 2 ML Flush BID IV.FLUSH SCH ×2 (09:23→20:49)
--- NOTE | 2018-01-10 10:07 | P.DIET ---
Nutritional Evaluation Type of nutrition evaluation: initial Nutrition consult regarding: Tube Feeding Nutrition screening: MDC (PEG, mild ileus and chronic constipation) Subjective Subjective Comments: Pt is nonverbal. He was on Jevity 1.5 @ 75 mls/hr from 6am -8pm prior to hospitalization. Objective - Diagnosis BPH, CHF, g-tube, quadrepareisis, TBI - Objective % IBW: 122 (IBW 123# d/t quadreparesis) Body Weight Used for Calculations: Actual (68.1) Energy Needs - Lower Range (kCal/kg): 25 Energy Needs - Upper Range (kCal/kg): 30 Lower Limit kCal/kg (kCals): 1,703 Upper Limit kCal/kg (kCals): 2,043 Lower Limit Protein Factor (Grams per Kg): 1.0 Upper Limit Protein Factor (Grams per Kg): 1.5 Lower Protein Needs (Protein): 68 Upper Protein Needs (Protein): 102 Fluid Factor (ml/kg): 30 Estimated Fluid Needs (ml): 2,043 Dietitian Reviewed in Medical Record: Curent medications, Intake & Output, Labs , Medical history, Tube feeding Diet Order: NPO Assessment Assessment: Pt is at high nutrition risk 2' to dx and his dependence on TF for nutrition. Prior to this hospital stay, the pt was receiving Jevity 1.5 @ 75 mls/hr x 14 hrs and this provided 1575 kcals and 67 gms protein. For current TF order, recommend Jevity 1.5 @ 55 mls/hr continuous feed to provide 1980 kcals, 84 gms protein and 1003 mls of free water. Pt will need an additional 165 ml water flush q 4 hrs to meet fluid needs. Jevity 1.5 is the appropriate formula for constipation d/t fiber content. Recommendations: Jevity 1.5 @ 55 mls/hr goal Dietitian to Monitor: Lab values, Intake & Output, Tube feeding tolerance, Weight change, Medical course
--- NOTE | 2018-01-10 12:27 | P.PN ---
Subjective Interval history: Patient seen lying quietly bed. Continues to be nonverbal which is baseline. Some response to stimulation but nothing meaningful. Nursing reports no adverse events. Patient did have very large bowel movement yesterday. Physical Exam Vital signs: Vital Signs 01/09/18 15:21 01/09/18 16:00 01/09/18 19:37 Temperature 97.3 F L Pulse Rate 59 L 79 78 Respiratory Rate 16 19 18 Blood Pressure 140/80 Pulse Oximetry 96 98 01/09/18 20:00 01/10/18 00:00 01/10/18 00:44 Temperature 98.0 F 98.2 F Pulse Rate 92 H 80 64 Respiratory Rate 20 20 16 Blood Pressure 144/79 H 113/68 Pulse Oximetry 100 100 01/10/18 03:51 01/10/18 04:00 01/10/18 07:45 Temperature 98.0 F Pulse Rate 88 103 H 62 Respiratory Rate 16 20 16 Blood Pressure 147/94 H Pulse Oximetry 100 98 01/10/18 08:00 01/10/18 11:31 Temperature 97.8 F Pulse Rate 63 71 Respiratory Rate 18 16 Blood Pressure 116/70 Pulse Oximetry 100 Intake & Output 01/09/18 01/10/18 01/10/18 18:59 06:59 18:59 Intake Total 2700 / 2700 1850 / 1850 Output Total 800 / 800 Balance 2699 / 2699 1050 / 1050 Intake: IV 2450 / 2450 1850 / 1850 D5W/1/2NS + KCL 20 mEq Inj 1, 1100 / 1100 000 ML @ 75 mls/hr IV.CONT . [id number] [facility] Rx#:[id number] NS Inj 1,000 ML @ 100 mls/hr IV 1999 / 1999 .CONT .Q10H [facility] Rx#:[id number] Azithromycin Inj 500 MG In NS 250 / 250 Inj 250 ML @ 250 mls/hr IV.SIG Q24H [facility] Rx#:[id number] Magnesium Sulfate 1 gm/D5W 100 100 / 100 ml Premix 100 ML @ 100 mls/hr IV.SIG ONCE ONE Rx#:[id number] Zosyn 4.5 GM Premix 4.5 gm In 200 / 200 200 / 200 100 ml @ 200 mls/hr IV.SIG Q6H [facility] Rx#:[id number] KCl 20 mEq Premix Inj 20 meq In 200 / 200 100 ml @ 50 mls/hr IV.SIG Q2H [facility] Rx#:[id number] Vancomycin Inj 1,000 MG In NS 250 / 250 Inj 250 ML @ 250 mls/hr IV.SIG Q8H [facility] Rx#:[id number] Water Bolus Amount 250 / 250 Output: Urine 800 / 800 Stool 1 / Other: Post Void Residual 1,300 Narrative: GENERAL: Well-nourished, well-developed adult male in no obvious distress. SKIN: Focused exam-warm and dry. HEAD: Atraumatic. Normocephalic. CARDIOVASCULAR: Regular rate and rhythm. RESPIRATORY: No accessory muscle use. Clear to auscultation. Breath sounds equal bilaterally. GASTROINTESTINAL: Abdomen soft, non-tender, distended. Positive bowel sounds. PEG tube in place. MUSCULOSKELETAL: Significant contractures and muscle wasting -all chronic appearing NEUROLOGICAL: Nonverbal. Eye movement with possible brief eye contact; difficult to assess comprehension. - Urinary Catheter Management Straight Cath placed during this visit: yes, but has since been removed by the nurse Reason for continuing: Not indwelling catheter Insertion date: 01/06/18 Insertion time: 20:45 Removal date: 01/06/18 Removal time: 20:47 Results - Labs CBC & Chem 7: 01/09/18 12:57 01/10/18 11:45 Laboratory Results - last 24 hr 01/09/18 01/09/18 01/09/18 12:57 12:57 16:40 WBC 9.0 RBC 3.83 L Hgb 12.1 L Hct 37.2 L MCV 97.0 MCH 31.6 MCHC 32.6 RDW 12.6 Plt Count 275 MPV 8.7 Neut % (Auto) 69.3 Lymph % (Auto) 14.9 Payne % (Auto) 14.6 H Eos % (Auto) 1.0 Baso % (Auto) 0.2 Neut # (Auto) 6.2 Lymph # (Auto) 1.3 Payne # (Auto) 1.3 H Eos # (Auto) 0.1 Baso # (Auto) 0.0 WBC Differential . Differential Comment Auto diff final Sodium 152 H Potassium 3.2 L Chloride 115 H Carbon Dioxide 28.8 Anion Gap 8 BUN 5 L Creatinine 1.17 Estimated GFR Greater than 89 Random Glucose 92 Calcium 8.8 Magnesium Vancomycin Trough 30.5 H Random Vancomycin 09/27/18 09/27/18 09/28/18 21:30 21:30 04:16 WBC RBC Hgb Hct MCV MCH MCHC RDW Plt Count MPV Neut % (Auto) Lymph % (Auto) Payne % (Auto) Eos % (Auto) Baso % (Auto) Neut # (Auto) Lymph # (Auto) Payne # (Auto) Eos # (Auto) Baso # (Auto) WBC Differential Differential Comment Sodium 149 H Potassium 2.8 L* Chloride 113 H Carbon Dioxide 27.1 Anion Gap 9 BUN 5 L Creatinine 1.22 Estimated GFR 87 L Random Glucose 91 Calcium 8.3 L Magnesium 2.2 Vancomycin Trough Random Vancomycin 26.9 Microbiology 01/06/18 20:40 Blood - Peripheral Aerobic Blood Culture - Preliminary No growth in 4 days 01/06/18 20:40 Blood - Peripheral Anaerobic Blood Culture - Preliminary Staphylococcus coag negative 01/06/18 20:45 Blood - Peripheral Aerobic Blood Culture - Preliminary Staphylococcus coag negative 01/06/18 20:45 Blood - Peripheral Anaerobic Blood Culture - Preliminary Staphylococcus coag negative Assessment and Plan - Plan Patient is a 27-year-old male with a history of traumatic brain injury, 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 01/09 : Electrolyte imbalance; see plan below. Trial restarting tube feed. monitor ileus. //Sepsis //Suspected aspiration pneumonia = With leukocytosis, fever of 100.8, tachycardia with heart rate of 118 on admission, respiratory rate of 30. = Pneumonia as seen on chest x-ray. = Lactate within normal limits. Vanco/Zosyn started 01/07. Follow-up cultures. //History of traumatic brain injury. = On chronic tube feeds. Dietary consulted for assistance in management. Per nursing, Report from facility indicated that he was on Jevity 1.5 at 75 mL's an hour between 8 PM and 6 AM (?). //History of seizure disorder = Continue home medications. //Electrolyte balance - hypokalemia/hypernatremia -Initially given D5 half NS with 20 M EQ potassium and free water flushes. Some improvement in Na noted; then trended back up. Changed to D5W (1000ml total planned/12 hr infusion) Continue free water flushes. Additional potassium given. Repeat labs to evaluate effectiveness. //Mild ileus with history of constipation = Initial x-ray indicates constipation with mild ileus. Suppositories until bowel movement. //Elevated CK. Secondary to systemic illness. Discussed Condition With: nurse, Dr. Craig
[2018-01-10 12:55] LABS: Calcium 8.9 mg/dL (8.5-10.1); Carbon Dioxide 30.4 meq/L (21.0-32.0); Potassium 3.4 meq/L (3.5-5.1)
[2018-01-10] MEDS ORDERED: Dextrose 5% in Water Inj 1,000 ML IV.CONT SCH (13:45)
[2018-01-10] MEDS: Polyethylene Glycol 3350 17 GM Packet G-TUBE SCH (20:42)
[2018-01-10] MEDS: Sodium Chloride 0.9% 2 ML Flush PRN IV.FLUSH (20:43)
[2018-01-10 22:21] LABS: Calcium 8.2 mg/dL (8.5-10.1); Carbon Dioxide 28.3 meq/L (21.0-32.0)
[2018-01-10] MEDS: Azithromycin Inj 500 MG in Sodium Chlor 0.9% Inj 250 ML IV.SIG SCH (23:21)
[2018-01-11] MEDS: Piperacil/Tazo 4.5 GM Premix 4.5 GM/100 ML BAG IV.SIG SCH ×4 (05:04→22:07)
[2018-01-11 06:21] LABS: Calcium 8.2 mg/dL (8.5-10.1); Carbon Dioxide 30.1 meq/L (21.0-32.0)
[2018-01-11 06:26] LABS: Potassium 2.9 meq/L (3.5-5.1)
[2018-01-11] MEDS ORDERED: Potassium Chloride 25 MEQ Effervescent Tablet PO ONE (06:28)
[2018-01-11 06:38] LABS: Baso % (Auto) 0.7 % (0.0-2.0); Eos # (Auto) 0.1 th/mm3 (0.0-0.4); Eos % (Auto) 2.3 % (0.0-4.0); Hematocrit 32.7 % (39.0-51.0); Hemoglobin 10.9 gm/dL (13.0-17.0); Lymph # (Auto) 1.5 th/mm3 (1.0-4.8); Lymph % (Auto) 25.2 % (9.0-44.0); Mean Corpuscular HGB Conc 33.3 % (32.0-36.0); Mean Corpuscular Hemoglobin 31.7 pg (27.0-34.0); Mean Corpuscular Volume 95.2 fL (80.0-100.0); Mean Platelet Volume 8.4 fL (7.0-11.0); Mono # (Auto) 0.7 th/mm3 (0.0-0.9); Neut # (Auto) 3.6 th/mm3 (1.8-7.7); Neut % (Auto) 59.8 % (16.0-70.0); Platelet Count 263 th/mm3 (150-450); Red Blood Count 3.43 mil/mm3 (4.50-5.90); Red Cell Distribution Width 12.7 % (11.6-17.2)
--- NOTE | 2018-01-11 08:07 | XR ---
EXAM DATE: 01/11/2018 12:00 AM EDT AGE/SEX: 27 years / Male INDICATIONS: Pneumonia. CLINICAL DATA: This is the patient's initial encounter. Patient reports that signs and symptoms have been present for 1 day and indicates a pain score of Nonresponsive. MEDICAL/SURGICAL HISTORY: . Seizures. Hypertension . Craniotomy. Shunt . COMPARISON: C, CHEST 1V SINGLE AP, 01/06/2018. . FINDINGS: Rotated and underinflated single view of the chest demonstrates a normal-sized cardiac silhouette. 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 The patient's chin obscures the apex of the left hemithorax . There is perihilar and lower lung zone airspace opacity. No pleural effusion or pneumothorax is rebeca ntified. Bones demonstrate no acute finding. CONCLUSION: Underinflated examination with mid and lower lung zone airspace opacities bilaterally, not significan tly changed from the study performed 5 days ago. Electronically signed by: Donaldo Mace MD 01/11/2018 8:06 AM EDT
[2018-01-11] MEDS: Sodium Chloride 0.9% 2 ML Flush BID IV.FLUSH SCH ×2 (08:26→22:07)
[2018-01-11] MEDS: Potassium Chloride 25 MEQ Effervescent Tablet PO SCH (08:32)
[2018-01-11] MEDS: Calcium/Vitamin D 250/125 MG Tablet NG/OG SCH (08:32)
[2018-01-11] MEDS: Bisacodyl 10 MG Supp RECTAL SCH (08:32)
[2018-01-11] MEDS: Lansoprazole ODT 15 MG Tablet NG/OG SCH (08:32)
[2018-01-11] MEDS: KCL 20 mEq/Dextrose 5% Inj 1,000 ML IV.CONT SCH ×2 (08:41→17:56)
[2018-01-11] MEDS ORDERED: Lansoprazole ODT 15 MG Tablet NG/OG SCH (09:00)
[2018-01-11] MEDS: KCL 20 mEq/D5W/NaCl 0.45% Inj 1,000 ML IV.CONT SCH (10:52)
--- NOTE | 2018-01-11 15:55 | P.PN ---
Subjective Interval history: Patient seen lying in bed. He is non-verbal. nursing reports no adverse events. Tube food appears to be at goal. Physical Exam Vital signs: Vital Signs 01/10/18 16:00 01/10/18 19:57 01/10/18 20:00 Temperature 97.6 F 97.8 F Pulse Rate 95 H 94 H 82 Respiratory Rate 16 16 16 Blood Pressure 121/62 125/66 Pulse Oximetry 98 98 98 01/11/18 00:00 01/11/18 00:20 01/11/18 04:00 Temperature 99.1 F 99.1 F Pulse Rate 92 H 85 90 Respiratory Rate 20 16 20 Blood Pressure 125/63 110/57 L Pulse Oximetry 98 97 01/11/18 08:00 01/11/18 12:00 Temperature 98.5 F 98.2 F Pulse Rate 79 68 Respiratory Rate 20 20 Blood Pressure 160/68 H 111/62 Pulse Oximetry 99 100 Intake & Output 01/10/18 01/11/18 01/11/18 18:59 06:59 18:59 Intake Total 200 / 200 2550 / 2550 1600 / 1600 Output Total 1400 / 1400 1000 / 1000 1102 / 1102 Balance -1200 / -1200 1550 / 1550 498 / 498 Intake: IV 200 / 200 1450 / 1450 1100 / 1100 D5W Inj 1,000 ML @ 84 mls/hr IV 1000 / 1000 .CONT .[id number] [facility] Rx#:[id number] D5W/1/2NS + KCL 20 mEq Inj 1, 1000 / 1000 000 ML @ 75 mls/hr IV.CONT . [id number] [facility] Rx#:[id number] Azithromycin Inj 500 MG In NS 250 / 250 Inj 250 ML @ 250 mls/hr IV.SIG Q24H [facility] Rx#:[id number] Zosyn 4.5 GM Premix 4.5 gm In 200 / 200 200 / 200 100 / 100 100 ml @ 200 mls/hr IV.SIG Q6H [facility] Rx#:[id number] Tube Feeding 605 / 605 Tube Irrigant 495 / 495 Water Bolus Amount 500 / 500 Output: Urine 1400 / 1400 1000 / 1000 1100 / 1100 Stool 2 / 2 Other: Date of Last Bowel Movement 01/10/18 01/11/18 Narrative: GENERAL: Well-nourished, well-developed adult male in no obvious distress. SKIN: Focused exam-warm and dry. HEAD: Atraumatic. Normocephalic. CARDIOVASCULAR: Regular rate and rhythm. RESPIRATORY: No accessory muscle use. Clear to auscultation. Breath sounds equal bilaterally. GASTROINTESTINAL: Abdomen soft, non-tender, distended. Positive bowel sounds. PEG tube in place. MUSCULOSKELETAL: Significant contractures and muscle wasting -all chronic appearing NEUROLOGICAL: Nonverbal. Eye movement with possible brief eye contact; difficult to assess comprehension. - Urinary Catheter Management Straight Cath placed during this visit: yes, but has since been removed by the nurse Reason for continuing: Not indwelling catheter Insertion date: 01/06/18 Insertion time: 20:45 Removal date: 01/06/18 Removal time: 20:47 Results - Labs CBC & Chem 7: 01/11/18 05:12 01/11/18 05:12 Laboratory Results - last 24 hr 01/10/18 01/11/18 01/11/18 21:31 05:12 05:12 WBC 6.0 RBC 3.43 L Hgb 10.9 L Hct 32.7 L MCV 95.2 MCH 31.7 MCHC 33.3 RDW 12.7 Plt Count 263 MPV 8.4 Neut % (Auto) 59.8 Lymph % (Auto) 25.2 [place] % (Auto) 12.0 H Eos % (Auto) 2.3 Baso % (Auto) 0.7 Neut # (Auto) 3.6 Lymph # (Auto) 1.5 [place] # (Auto) 0.7 Eos # (Auto) 0.1 Baso # (Auto) 0.0 WBC Differential . Differential Comment Auto diff final Hematology Comments Sodium 151 H 152 H Potassium 3.0 L 2.9 L* Chloride 112 H 114 H Carbon Dioxide 28.3 30.1 Anion Gap 11 8 BUN 3 L 4 L Creatinine 1.32 H 1.24 Estimated GFR 79 L 85 L POC Glucose Random Glucose 101 127 H Calcium 8.2 L 8.2 L 01/11/18 10:13 WBC RBC Hgb Hct MCV MCH MCHC RDW Plt Count MPV Neut % (Auto) Lymph % (Auto) [place] % (Auto) Eos % (Auto) Baso % (Auto) Neut # (Auto) Lymph # (Auto) [place] # (Auto) Eos # (Auto) Baso # (Auto) WBC Differential Differential Comment Hematology Comments Sodium Potassium Chloride Carbon Dioxide Anion Gap BUN Creatinine Estimated GFR POC Glucose 94 Random Glucose Calcium Microbiology 01/06/18 20:40 Blood - Peripheral Aerobic Blood Culture - Final No growth in 5 days 01/06/18 20:40 Blood - Peripheral Anaerobic Blood Culture - Preliminary Staphylococcus coag negative 01/06/18 20:45 Blood - Peripheral Aerobic Blood Culture - Final Staphylococcus epidermidis 01/06/18 20:45 Blood - Peripheral Anaerobic Blood Culture - Final Staphylococcus coag negative - Imaging Impressions Chest X-Ray 01/11/18 00:00 CONCLUSION: Underinflated examination with mid and lower lung zone airspace opacities bilaterally, not significantly changed from the study performed 5 days ago. 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 01/11 : Continued electrolyte imbalance; see plan below. Trial restarting tube feed. monitor ileus. //Sepsis //Suspected aspiration pneumonia = With leukocytosis, fever of 100.8, tachycardia with heart rate of 118 on admission, respiratory rate of 30. = Pneumonia as seen on chest x-ray. = Lactate within normal limits. Vanco/Zosyn/Azith started 01/07. Stopped vanco due to kidney function //History of traumatic brain injury. = On chronic tube feeds. Dietary consulted for assistance in management. Per nursing, Report from facility indicated that he was on Jevity 1.5 at 75 mL's an hour between 8 PM and 6 AM (?). //History of seizure disorder = Continue home medications. //Electrolyte balance - hypokalemia/hypernatremia -Initially given D5 half NS with 20 M EQ potassium and free water flushes. Some improvement in Na noted; then trended back up. Deficit of 2. Will do D5W with 20 M EQ's potassium. continue free water flushes. Repeat labs to evaluate effectiveness. //Mild ileus with history of constipation = Initial x-ray indicates constipation with mild ileus. Suppositories until bowel movement. //Elevated CK. Secondary to systemic illness. Discussed Condition With: nurse, Dr. Craig
[2018-01-11] MEDS: Polyethylene Glycol 3350 17 GM Packet G-TUBE SCH (22:07)
[2018-01-11] MEDS: Azithromycin Inj 500 MG in Sodium Chlor 0.9% Inj 250 ML IV.SIG SCH (22:08)
[2018-01-12 05:27] LABS: Anion Gap 8 meq/L (5-15); Blood Urea Nitrogen 4 mg/dL (7-18); Calcium 8.4 mg/dL (8.5-10.1); Carbon Dioxide 29.6 meq/L (21.0-32.0); Chloride 109 meq/L (98-107); Glomerular Filtration Rate Greater Than 89 mL/min (>89); Glucose,Random 94 mg/dL (74-106); Magnesium 2.2 mg/dL (1.5-2.5); Potassium 3.4 meq/L (3.5-5.1); Sodium 147 meq/L (136-145)
[2018-01-12] MEDS: KCL 20 mEq/Dextrose 5% Inj 1,000 ML IV.CONT SCH ×3 (06:06→15:24)
[2018-01-12] MEDS: Piperacil/Tazo 4.5 GM Premix 4.5 GM/100 ML BAG IV.SIG SCH ×4 (06:06→23:00)
[2018-01-12] MEDS: Bisacodyl 10 MG Supp RECTAL SCH (08:05)
[2018-01-12] MEDS: Potassium Chloride 25 MEQ Effervescent Tablet PO SCH (08:05)
[2018-01-12] MEDS: Lansoprazole ODT 15 MG Tablet NG/OG SCH (08:06)
[2018-01-12] MEDS: Calcium/Vitamin D 250/125 MG Tablet NG/OG SCH (08:06)
[2018-01-12] MEDS: Sodium Chloride 0.9% 2 ML Flush BID IV.FLUSH SCH ×2 (08:06→21:00)
[2018-01-12] MEDS ORDERED: Bisacodyl 10 MG Supp RECTAL PRN (14:51)
--- NOTE | 2018-01-12 14:56 | P.PN ---
Subjective Interval history: Patient is seen resting quietly in bed. Does not appear to be in distress. Nursing reports no adverse events overnight. Physical Exam Vital signs: Vital Signs 01/11/18 16:00 01/11/18 20:00 01/12/18 00:00 Temperature 97.9 F 98.1 F 97.5 F L Pulse Rate 60 89 80 Respiratory Rate 20 17 18 Blood Pressure 125/60 124/56 L 125/58 L Pulse Oximetry 100 99 99 01/12/18 01:11 01/12/18 04:00 01/12/18 07:57 Temperature 97.9 F 98 F Pulse Rate 57 L 50 L Respiratory Rate 17 20 Blood Pressure 110/65 109/71 Pulse Oximetry 99 99 98 01/12/18 11:39 Temperature 98.1 F Pulse Rate 66 Respiratory Rate 18 Blood Pressure 115/79 Pulse Oximetry 99 Intake & Output 01/11/18 01/12/18 01/12/18 18:59 06:59 18:59 Intake Total 3482 / 3482 2695 / 2695 410 / 410 Output Total 2602 / 2602 2100 / 2100 1200 / 1200 Balance 880 / 880 595 / 595 -790 / -790 Weight 68.1 kg Intake: IV 2200 / 2200 1450 / 1450 100 / 100 D5W Inj 1,000 ML @ 84 mls/hr IV 1000 / 1000 .CONT .[id number] [facility] Rx#:[id number] D5W + KCL 20 mEq Inj 1,000 ML @ 1000 / 1000 1000 / 1000 100 mls/hr IV.CONT .Q10H [facility] Rx#:[id number] Azithromycin Inj 500 MG In NS 250 / 250 Inj 250 ML @ 250 mls/hr IV.SIG Q24H [facility] Rx#:[id number] Zosyn 4.5 GM Premix 4.5 gm In 200 / 200 200 / 200 100 / 100 100 ml @ 200 mls/hr IV.SIG Q6H [facility] Rx#:[id number] Oral 0 / 0 Tube Feeding 532 / 532 495 / 495 Water Bolus Amount 750 / 750 750 / 750 310 / 310 Output: Urine 2600 / 2600 2100 / 2100 1200 / 1200 Stool 2 / 2 Other: Date of Last Bowel Movement 01/11/18 01/11/18 01/11/18 # Incontinent Bowel Movements 1 # Emeses 1 Narrative: GENERAL: Well-nourished, well-developed adult male in no obvious distress. SKIN: Focused exam-warm and dry. HEAD: Atraumatic. Normocephalic. CARDIOVASCULAR: Regular rate and rhythm. RESPIRATORY: No accessory muscle use. Clear to auscultation. Breath sounds equal bilaterally. GASTROINTESTINAL: Abdomen soft, non-tender, distended. Positive bowel sounds. PEG tube in place. MUSCULOSKELETAL: Significant contractures and muscle wasting -all chronic appearing NEUROLOGICAL: Nonverbal. Eye movement with possible brief eye contact; difficult to assess comprehension. - Urinary Catheter Management Straight Cath placed during this visit: yes, but has since been removed by the nurse Reason for continuing: Not indwelling catheter Insertion date: 01/06/18 Insertion time: 20:45 Removal date: 01/06/18 Removal time: 20:47 Results - Labs CBC & Chem 7: 01/11/18 05:12 01/12/18 04:11 Laboratory Results - last 24 hr 01/12/18 01/12/18 01/12/18 04:11 07:39 10:57 Sodium 147 H Potassium 3.4 L Chloride 109 H Carbon Dioxide 29.6 Anion Gap 8 BUN 4 L Creatinine 1.17 Estimated GFR Greater than 89 POC Glucose 105 125 H Random Glucose 94 Calcium 8.4 L Magnesium 2.2 Microbiology 01/11/18 08:10 Blood - Peripheral Aerobic Blood Culture - Preliminary No growth in 1 day 01/11/18 08:10 Blood - Peripheral Anaerobic Blood Culture - Preliminary No growth in 1 day 01/11/18 08:05 Blood - Peripheral Aerobic Blood Culture - Preliminary No growth in 1 day 01/11/18 08:05 Blood - Peripheral Anaerobic Blood Culture - Preliminary No growth in 1 day 01/06/18 20:40 Blood - Peripheral Aerobic Blood Culture - Final No growth in 5 days 01/06/18 20:40 Blood - Peripheral Anaerobic Blood Culture - Final Staphylococcus epidermidis Assessment and Plan - Plan Patient is a 27-year-old male with a history of traumatic brain injury, 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 01/12 : Continued electrolyte imbalance; improving; see plan below. Trial restarting tube feed. monitor ileus. //Sepsis //Suspected aspiration pneumonia = With leukocytosis, fever of 100.8, tachycardia with heart rate of 118 on admission, respiratory rate of 30. = Pneumonia as seen on chest x-ray. = Lactate within normal limits. Vanco/Zosyn/Azith started 01/07. Stopped vanco due to kidney function -Repeat cultures ordered 01/11-no growth x 1 day //History of traumatic brain injury. = On chronic tube feeds. Dietary consulted for assistance in management. Per nursing, Report from facility indicated that he was on Jevity 1.5 at 75 mL's an hour between 8 PM and 6 AM (?). //History of seizure disorder = Continue home medications. //Electrolyte balance - hypokalemia/hypernatremia -Initially given D5 half NS with 20 M EQ potassium and free water flushes. Some improvement in Na noted; then trended back up. Deficit of 2.0 on 01/11. Will do D5W with 20 M EQ's potassium. continue free water flushes. Repeat labs to evaluate effectiveness. //Mild ileus with history of constipation = Initial x-ray indicates constipation with mild ileus. Suppositories until bowel movement; has had several bowel movements; suppositories now as needed. //Elevated CK. -Secondary to systemic illness. -Resolving Discussed Condition With: nurse, Dr. Craig
[2018-01-12] MEDS: Polyethylene Glycol 3350 17 GM Packet G-TUBE SCH (21:00)
[2018-01-12] MEDS: Azithromycin Inj 500 MG in Sodium Chlor 0.9% Inj 250 ML IV.SIG SCH (22:00)
[2018-01-13] MEDS: KCL 20 mEq/Dextrose 5% Inj 1,000 ML IV.CONT SCH ×3 (00:58→17:30)
[2018-01-13] MEDS: Piperacil/Tazo 4.5 GM Premix 4.5 GM/100 ML BAG IV.SIG SCH ×4 (05:09→23:13)
[2018-01-13 09:26] LABS: Anion Gap 7 meq/L (5-15); Blood Urea Nitrogen 5 mg/dL (7-18); Calcium 9.1 mg/dL (8.5-10.1); Carbon Dioxide 29.6 meq/L (21.0-32.0); Chloride 110 meq/L (98-107); Glomerular Filtration Rate Greater Than 89 mL/min (>89); Glucose,Random 97 mg/dL (74-106); Magnesium 2.2 mg/dL (1.5-2.5); Potassium 4.1 meq/L (3.5-5.1); Sodium 147 meq/L (136-145)
[2018-01-13] MEDS: Potassium Chloride 25 MEQ Effervescent Tablet PO SCH (09:29)
[2018-01-13] MEDS: Calcium/Vitamin D 250/125 MG Tablet NG/OG SCH (09:29)
[2018-01-13] MEDS: Sodium Chloride 0.9% 2 ML Flush BID IV.FLUSH SCH ×2 (09:31→22:24)
[2018-01-13] MEDS: Lansoprazole ODT 15 MG Tablet NG/OG SCH (09:31)
--- NOTE | 2018-01-13 10:27 | P.PN ---
Subjective Interval history: Patient is seen lying quietly in bed. Does not appear to be in distress. Nursing reports no adverse events overnight. Physical Exam Vital signs: Vital Signs 01/12/18 11:39 01/12/18 16:00 01/12/18 20:00 Temperature 98.1 F 97.4 F L 98 F Pulse Rate 66 82 68 Respiratory Rate 18 18 17 Blood Pressure 115/79 120/76 118/75 Pulse Oximetry 99 100 99 01/13/18 00:00 01/13/18 02:22 01/13/18 02:28 Temperature 99.3 F 98.6 F Pulse Rate 92 H 116 H Respiratory Rate 18 18 Blood Pressure 154/67 H 142/64 H Pulse Oximetry 97 96 98 01/13/18 04:00 Temperature 99.7 F H Pulse Rate 73 Respiratory Rate 18 Blood Pressure 113/57 L Pulse Oximetry 95 Intake & Output 01/12/18 01/13/18 01/13/18 18:59 06:59 18:59 Intake Total 2224 / 2224 2229 / 2229 Output Total 1200 / 1200 2049 Balance 1024 / 1024 179 / 179 Weight 68.1 kg Intake: IV 1200 / 1200 1450 / 1450 D5W + KCL 20 mEq Inj 1,000 ML @ 1000 / 1000 1000 / 1000 100 mls/hr IV.CONT .Q10H [facility] Rx#:[id number] Azithromycin Inj 500 MG In NS 250 / 250 Inj 250 ML @ 250 mls/hr IV.SIG Q24H [facility] Rx#:[id number] Zosyn 4.5 GM Premix 4.5 gm In 200 / 200 200 / 200 100 ml @ 200 mls/hr IV.SIG Q6H [facility] Rx#:[id number] Oral 0 / 0 Tube Feeding 464 / 464 659 / 659 Water Bolus Amount 560 / 560 120 / 120 Output: Urine 1200 / 1200 2049 Other: # Incontinent Voids 1 Date of Last Bowel Movement 01/11/18 01/11/18 # Incontinent Bowel Movements 1 # Emeses 1 Narrative: GENERAL: Well-nourished, well-developed adult male in no obvious distress. SKIN: Focused exam-warm and dry. HEAD: Atraumatic. Normocephalic. CARDIOVASCULAR: Regular rate and rhythm. RESPIRATORY: No accessory muscle use. Clear to auscultation. Breath sounds equal bilaterally. GASTROINTESTINAL: Abdomen soft, non-tender, distended. Positive bowel sounds. PEG tube in place. MUSCULOSKELETAL: Significant contractures and muscle wasting -all chronic appearing NEUROLOGICAL: Nonverbal. Eye movement with possible brief eye contact; difficult to assess comprehension. - Urinary Catheter Management Straight Cath placed during this visit: yes, but has since been removed by the nurse Reason for continuing: Not indwelling catheter Insertion date: 01/06/18 Insertion time: 20:45 Removal date: 01/06/18 Removal time: 20:47 Results - Labs CBC & Chem 7: 01/11/18 05:12 01/13/18 08:49 Laboratory Results - last 24 hr 01/12/18 01/13/18 10:57 08:49 Sodium 147 H Potassium 4.1 Chloride 110 H Carbon Dioxide 29.6 Anion Gap 7 BUN 5 L Creatinine 1.12 Estimated GFR Greater than 89 POC Glucose 125 H Random Glucose 97 Calcium 9.1 Magnesium 2.2 Microbiology 01/11/18 08:10 Blood - Peripheral Aerobic Blood Culture - Preliminary No growth in 1 day 01/11/18 08:10 Blood - Peripheral Anaerobic Blood Culture - Preliminary No growth in 1 day 01/11/18 08:05 Blood - Peripheral Aerobic Blood Culture - Preliminary No growth in 1 day 01/11/18 08:05 Blood - Peripheral Anaerobic Blood Culture - Preliminary No growth in 1 day 01/06/18 20:40 Blood - Peripheral Aerobic Blood Culture - Final No growth in 5 days 01/06/18 20:40 Blood - Peripheral Anaerobic Blood Culture - Final Staphylococcus epidermidis Assessment and Plan - Plan Patient is a 27-year-old male with a history of traumatic brain injury, LAYER OFF shunt; nonverbal at baseline, transferred from the SNF where he lives due to altered mental status. 01/13 : electrolyte imbalance; improving; see plan below. Tube feed at goal. monitor ileus. //Sepsis //Suspected aspiration pneumonia = With leukocytosis, fever of 100.8, tachycardia with heart rate of 118 on admission, respiratory rate of 30. = Pneumonia as seen on chest x-ray. = Lactate within normal limits. Vanco/Zosyn/Azith started 01/07. Stopped vanco due to kidney function -Repeat cultures ordered 01/11-no growth x 1 day //Electrolyte balance - hypokalemia/hypernatremia -Initially given D5 half NS with 20 M EQ potassium and free water flushes. Some improvement in Na noted; then trended back up. Deficit of 2.0 on 01/11. Will do D5W with 20 M EQ's potassium -completed 01/13. continue free water flushes. Repeat labs to evaluate effectiveness. //Mild ileus with history of constipation = Initial x-ray indicates constipation with mild ileus. -Suppositories until bowel movement; has had several bowel movements; suppositories now PRN. //Elevated CK. -Secondary to systemic illness. -Resolving //History of traumatic brain injury. = On chronic tube feeds. -Dietary consulted for assistance in management. //History of seizure disorder = Continue home medications. DVT prophylaxis: SCDs Discussed Condition With: nurse, Dr. Craig
[2018-01-13] MEDS: Polyethylene Glycol 3350 17 GM Packet G-TUBE SCH (21:35)
[2018-01-14] MEDS: Azithromycin Inj 500 MG in Sodium Chlor 0.9% Inj 250 ML IV.SIG SCH ×2 (00:23→22:55)
[2018-01-14] MEDS: Piperacil/Tazo 4.5 GM Premix 4.5 GM/100 ML BAG IV.SIG SCH ×4 (04:43→22:07)
[2018-01-14 05:31] LABS: Anion Gap 9 meq/L (5-15); Blood Urea Nitrogen 8 mg/dL (7-18); Calcium 9.6 mg/dL (8.5-10.1); Carbon Dioxide 29.2 meq/L (21.0-32.0); Chloride 110 meq/L (98-107); Glomerular Filtration Rate Greater Than 89 mL/min (>89); Glucose,Random 102 mg/dL (74-106); Magnesium 2.3 mg/dL (1.5-2.5); Sodium 148 meq/L (136-145)
[2018-01-14] MEDS: Calcium/Vitamin D 250/125 MG Tablet NG/OG SCH (10:18)
[2018-01-14] MEDS: Sodium Chloride 0.9% 2 ML Flush BID IV.FLUSH SCH ×2 (10:19→22:06)
--- NOTE | 2018-01-14 12:20 | P.PN ---
Subjective Interval history: Up on patient with history of TBI, admitted with altered mental status from [facility]. Patient seen and examined. Patient is nonverbal. He is nonresponsive. He is awake. He does not track. He does not follow any commands. Discussed with nursing staff, no acute events noted overnight. Physical Exam Vital signs: Vital Signs 01/13/18 12:00 01/13/18 16:00 01/13/18 20:00 Temperature 98.6 F 98.9 F 98.9 F Pulse Rate 73 86 84 Respiratory Rate 16 16 19 Blood Pressure 115/58 L 116/55 L 113/64 Pulse Oximetry 99 96 97 01/14/18 00:00 01/14/18 03:16 01/14/18 04:00 Temperature 98.2 F 98.1 F Pulse Rate 81 78 Respiratory Rate 18 18 Blood Pressure 111/54 L 115/57 L Pulse Oximetry 96 98 95 01/14/18 08:00 Temperature 98.7 F Pulse Rate 77 Respiratory Rate 20 Blood Pressure 134/81 Pulse Oximetry 98 Intake & Output 01/13/18 01/14/18 01/14/18 18:59 06:59 18:59 Intake Total 1200 / 1200 450 / 450 Output Total 1949 / 1950 Balance 1200 / 1200 -1500 / -1500 Weight 68.1 kg Intake: IV 1200 / 1200 450 / 450 D5W + KCL 20 mEq Inj 1,000 ML @ 1000 / 1000 100 mls/hr IV.CONT .Q10H ANSELMO Rx#:[id number] Azithromycin Inj 500 MG In NS 250 / 250 Inj 250 ML @ 250 mls/hr IV.SIG Q24H ANSELMO Rx#:[id number] Zosyn 4.5 GM Premix 4.5 gm In 200 / 200 200 / 200 100 ml @ 200 mls/hr IV.SIG Q6H ANSELMO Rx#:[id number] Output: Urine 1949 / 1949 Other: # Voids 2 Date of Last Bowel Movement 01/13/18 01/13/18 # Bowel Movements 1 Narrative: GENERAL: Well-developed well-nourished chronically ill appearing young - Swazi male patient, in no acute distress. Awake. Nonverbal. SKIN: Warm and dry. HEAD: Atraumatic. Normocephalic. EYES: Pupils equal and round. No scleral icterus. No injection or drainage. ENT: No nasal bleeding or discharge. Mucous membranes pink and moist. NECK: Trachea midline. CARDIOVASCULAR: Regular rate and rhythm. RESPIRATORY: No accessory muscle use. Clear to auscultation anteriorly. Breath sounds equal bilaterally. GASTROINTESTINAL: Abdomen soft, non-tender, nondistended. PEG tube in place, site C/D/I. MUSCULOSKELETAL: Severe contractures bilateral upper and lower extremities with muscle wasting. NEUROLOGICAL: Awake. Does not appear to track. Nonverbal. Does not follow simple commands. No spontaneous movement noted at this time. - Urinary Catheter Management Straight Cath placed during this visit: yes, but has since been removed by the nurse Reason for continuing: Not indwelling catheter Insertion date: 01/06/18 Insertion time: 20:45 Removal date: 01/06/18 Removal time: 20:47 Results - Labs CBC & Chem 7: 01/11/18 05:12 01/14/18 04:17 Laboratory Results - last 24 hr 01/13/18 01/14/18 11:15 04:17 Sodium 148 H Potassium 4.0 Chloride 110 H Carbon Dioxide 29.2 Anion Gap 9 BUN 8 Creatinine 1.17 Estimated GFR Greater than 89 Random Glucose 102 Calcium 9.6 Magnesium 2.3 Stl C.difficile Tox PCR Negative St C. 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 Sepsis with leukocytosis, fever of 100.8, tachycardia with heart rate of 118 on admission, respiratory rate of 30, resolved Suspected aspiration pneumonia Pneumonia as seen on chest x-ray. Lactate within normal limits. Vanco/Zosyn/Azith started 01/07. Stopped vanco due to kidney function. Bacteremia BCX + staph epidermidis 2/ and staph coag neg 04/18, suspect contaminant -Repeat cultures ordered 01/11-no growth x 3 day Electrolyte imbalance Hypokalemia Hypernatremia -potassium improved s/p repletion -Na 148, increase FWF. Monitor Na level. Mild ileus with history of constipation Initial x-ray indicates constipation with mild ileus. -Suppositories until bowel movement; has had several bowel movements; suppositories now PRN. Elevated CK, resolving -Secondary to systemic illness. History of traumatic brain injury On chronic tube feeds. -Dietary consulted for assistance in management. History of seizure disorder -Continue home medications -seizure precautions Diarrhea Cdiff neg -suspect secondary to TF -add Lactobacillus DVT prophylaxis: SCDs Code Status: FULL Discussed Condition With: nursing staff Discharge Planning: Patient medically cleared for discharge. Consult CM to assist with placement back to SNF facility.
[2018-01-14] MEDS: Lansoprazole ODT 15 MG Tablet NG/OG SCH (12:57)
--- NOTE | 2018-01-14 16:50 | P.DS ---
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 Patient is nonverbal and history is obtained from the ED physician, chart review. Family not at bedside at the time of evaluation. Patient update on day of discharge: Follow up on patient with history of TBI, admitted with altered mental status from [facility]. Patient seen and examined. Patient is nonverbal. He is nonresponsive. He is awake. He does not track. He does not follow any commands. Discussed with nursing staff, no acute events noted overnight. DS: Diagnosis - Discharge Diagnosis (1) SIRS (systemic inflammatory response syndrome) Status: Acute (2) Pneumonia Status: Acute (3) Hypokalemia Status: Acute (4) Hypernatremia Status: Acute (5) Elevated CK Status: Acute DS: Medications - Discharge Medications Prescriptions: Lactobacillus acidoph-L.bulgar [Floranex] 1 gm G-TUBE TID #90 ea sennosides-docusate sodium [Senna Plus] 1 tab G-TUBE BID #60 tab DS: Summary Hospital Course: Patient was admitted with sepsis secondary to pneumonia. Patient was started on IV vancomycin and Zosyn and azithromycin. Imaging revealed diffuse ileus and constipation which responded well to bowel regimen. Patient was seen in consultation by dietitian and was resumed on tube feedings Jevity 1.5 @ 55 mls/ hr goal. She had decline in his kidney function with elevated creatinine 1.32. Vancomycin was discontinued and patient's creatinine improved. Patient developed significantly decreased potassium of 2.8 which responded well with repletion. Patient also had hypernatremia that responded well to treatment. Free water flushes were increased. Patient improved clinically. He remained afebrile. Patient did have episode of diarrhea but C. difficile was negative. Likely related to tube feedings. Lactobacillus was added. - Time Spent with Patient Total time spent providing and/or coordinating discharge services: Greater than 30 minutes - Quality: VTE Deep Vein Thrombosis/Pulmonary Embolism Present on Admission: No Exam Vital signs: Vital Signs 01/13/18 20:00 01/14/18 00:00 01/14/18 03:16 Temperature 98.9 F 98.2 F Pulse Rate 84 81 Respiratory Rate 19 18 Blood Pressure 113/64 111/54 L Pulse Oximetry 97 96 98 01/14/18 04:00 01/14/18 08:00 01/14/18 12:00 Temperature 98.1 F 98.7 F 98.0 F Pulse Rate 78 77 68 Respiratory Rate 18 20 20 Blood Pressure 115/57 L 134/81 127/72 Pulse Oximetry 95 98 100 Intake & Output 01/13/18 01/14/18 01/14/18 18:59 06:59 18:59 Intake Total 1200 / 1200 450 / 450 100 / 100 Output Total 1949 / 1950 Balance 1200 / 1200 -1500 / -1500 100 / 100 Weight 68.1 kg Intake: IV 1200 / 1200 450 / 450 100 / 100 D5W + KCL 20 mEq Inj 1,000 ML @ 1000 / 1000 100 mls/hr IV.CONT .Q10H ANSELMO Rx#:[id number] Azithromycin Inj 500 MG In NS 250 / 250 Inj 250 ML @ 250 mls/hr IV.SIG Q24H ANSELMO Rx#:[id number] Zosyn 4.5 GM Premix 4.5 gm In 200 / 200 200 / 200 100 / 100 100 ml @ 200 mls/hr IV.SIG Q6H ANSELMO Rx#:[id number] Output: Urine 1949 Other: # Voids 2 Date of Last Bowel Movement 01/13/18 01/13/18 01/14/18 # Bowel Movements 1 Narrative: GENERAL: Well-developed well-nourished chronically ill appearing young - [place] male patient, in no acute distress. Awake. Nonverbal. SKIN: Warm and dry. HEAD: Atraumatic. Normocephalic. EYES: Pupils equal and round. No scleral icterus. No injection or drainage. ENT: No nasal bleeding or discharge. Mucous membranes pink and moist. NECK: Trachea midline. CARDIOVASCULAR: Regular rate and rhythm. RESPIRATORY: No accessory muscle use. Clear to auscultation anteriorly. Breath sounds equal bilaterally. GASTROINTESTINAL: Abdomen soft, non-tender, nondistended. PEG tube in place, site C/D/I. MUSCULOSKELETAL: Severe contractures bilateral upper and lower extremities with muscle wasting. NEUROLOGICAL: Awake. Does not appear to track. Nonverbal. Does not follow simple commands. No spontaneous movement noted at this time. Results Procedures completed during hospitalization: None Labs on day of discharge: Labs from last 24 hours 01/14/18 04:17 Sodium 148 H Potassium 4.0 Chloride 110 H Carbon Dioxide 29.2 Anion Gap 9 BUN 8 Creatinine 1.17 Estimated GFR Greater than 89 Random Glucose 102 Calcium 9.6 Magnesium 2.3 Preliminary micro results at discharge 01/11/18 08:10 Aerobic Blood Culture - Preliminary Blood - Peripheral No growth in 3 days Anaerobic Blood Culture - Preliminary No growth in 3 days 01/11/18 08:05 Aerobic Blood Culture - Preliminary Blood - Peripheral No growth in 3 days Anaerobic Blood Culture - Preliminary No growth in 3 days - Impressions ITS Impressions Abdomen X-Ray 01/09/18 00:00 CONCLUSION: Mild ileus, stable. Chest X-Ray 01/11/18 00:00 CONCLUSION: Underinflated examination with mid and lower lung zone airspace opacities bilaterally, not significantly changed from the study performed 5 days ago. Discharge Plan - Discharge Disposition Patient Disposition: 03 Discharge to SNF - Discharge Condition Condition: Stable - Discharge Order Discharge Orders: Discharge Order (Routine); Ordered 01/14/18 Ordered By: Sommer Prieto - Discharge Details Anticipated Discharge Date: 01/14/18 - Physicians Team Primary Care Provider: Marcio Archibald Attending Provider: Kendall Craig Other Providers: Rehab,[place]
[2018-01-14] MEDS: Senna/Docusate Sodium 8.6/50 MG Tablet G-TUBE SCH (22:06)
[2018-01-14] MEDS: Polyethylene Glycol 3350 17 GM Packet G-TUBE SCH (22:07)
[2018-01-15] MEDS: Piperacil/Tazo 4.5 GM Premix 4.5 GM/100 ML BAG IV.SIG SCH ×2 (04:59→12:34)
--- NOTE | 2018-01-15 07:20 | P.PN ---
Subjective Interval history: Follow up on patient with AMS, PNA. Patient seen and examined. Patient is resting comfortably. He is nonverbal. Does not follow commands. He is afebrile, VSS. Physical Exam Vital signs: Vital Signs 01/14/18 08:00 01/14/18 12:00 01/14/18 16:00 Temperature 98.7 F 98.0 F 98.1 F Pulse Rate 77 68 55 L Respiratory Rate 18 Blood Pressure 134/81 127/72 130/64 Pulse Oximetry 98 100 99 01/14/18 20:00 01/14/18 20:35 01/15/18 00:00 Temperature 98.2 F 97.8 F Pulse Rate 67 60 71 Respiratory Rate 18 Blood Pressure 143/73 H 129/63 Pulse Oximetry 100 97 95 Intake & Output 01/14/18 01/15/18 01/15/18 18:59 06:59 18:59 Intake Total 100 / 100 1929 / 0 Output Total 975 / 975 Balance -875 / -875 1929 Intake: IV 100 / 100 550 / 550 Azithromycin Inj 500 MG In NS 250 / 250 Inj 250 ML @ 250 mls/hr IV.SIG Q24H ANSELMO Rx#:[id number] Zosyn 4.5 GM Premix 4.5 gm In 100 / 100 300 / 300 100 ml @ 200 mls/hr IV.SIG Q6H ANSELMO Rx#:[id number] Tube Feeding 660 / 660 Water Bolus Amount 720 / 720 Output: Urine 975 / 975 Other: Date of Last Bowel Movement 01/14/18 # Incontinent Bowel Movements 2 Narrative: GENERAL: Well-developed well-nourished chronically ill appearing young - [place] male patient. Resting comfortably. Does not follow commands. Nonverbal. SKIN: Warm and dry. No generalized rash. HEAD: Atraumatic. Normocephalic. EYES: Pupils equal and round. No scleral icterus. No injection or drainage. ENT: No nasal bleeding or discharge. Mucous membranes pink and moist. NECK: Trachea midline. CARDIOVASCULAR: Regular rate and rhythm. RESPIRATORY: No accessory muscle use. Clear to auscultation anteriorly. Breath sounds equal bilaterally. GASTROINTESTINAL: Abdomen soft, non-tender, nondistended. PEG tube in place, site C/D/I. MUSCULOSKELETAL: Severe contractures bilateral upper and lower extremities with muscle wasting. NEUROLOGICAL: Awake. Does not appear to track. Nonverbal. Does not follow simple commands. No spontaneous movement noted of the extremities. - Urinary Catheter Management Straight Cath placed during this visit: yes, but has since been removed by the nurse Reason for continuing: Not indwelling catheter Insertion date: 01/06/18 Insertion time: 20:45 Removal date: 01/06/18 Removal time: 20:47 Results - Labs CBC & Chem 7: 01/11/18 05:12 01/15/18 06:33 Microbiology 01/11/18 08:10 Blood - Peripheral Aerobic Blood Culture - Preliminary No growth in 3 days 01/11/18 08:10 Blood - Peripheral Anaerobic Blood Culture - Preliminary No growth in 3 days 01/11/18 08:05 Blood - Peripheral Aerobic Blood Culture - Preliminary No growth in 3 days 01/11/18 08:05 Blood - Peripheral Anaerobic Blood Culture - Preliminary No growth in 3 days - Procedures None Assessment and Plan - Assessment (1) SIRS (systemic inflammatory response syndrome) Code(s): R65.10 - Systemic inflammatory response syndrome (SIRS) of non- infectious origin without acute organ dysfunction Status: Acute (2) Pneumonia Code(s): J18.9 - Pneumonia, unspecified organism Status: Acute (3) Hypokalemia Code(s): E87.6 - Hypokalemia Status: Acute (4) Hypernatremia Code(s): E87.0 - Hyperosmolality and hypernatremia Status: Acute (5) Elevated CK Code(s): R74.8 - Abnormal levels of other serum enzymes Status: Acute - Plan 27-year-old male with a 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 Sepsis with leukocytosis, fever of 100.8, tachycardia with heart rate of 118 on admission, respiratory rate of 30, resolved Suspected aspiration pneumonia Pneumonia as seen on chest x-ray. Lactate within normal limits. Vanco/Zosyn/Azith started 01/07. Stopped vanco due to kidney function. -Duonebs -monitor respiratory status Bacteremia BCX + staph epidermidis 2/ and staph coag neg 04/18, suspect contaminant -Repeat cultures ordered 01/11-no growth x 3 day Electrolyte imbalance Hypokalemia Hypernatremia -potassium improved s/p repletion. K 3.9 this am. -Na 148, FWF increased. Repeat Na improved to 146 this am. Mild ileus with history of constipation Initial x-ray indicates constipation with mild ileus. -Suppositories until bowel movement; has had several bowel movements; suppositories now PRN. Elevated CK, resolving -Secondary to systemic illness. History of traumatic brain injury On chronic tube feeds. -Dietary consulted for assistance in management. Continue on TF Jevity 1.5 @ 55 mls/hr goal History of seizure disorder -Continue home medications -seizure precautions Diarrhea Cdiff neg -suspect secondary to TF -Lactobacillus added, continue DVT prophylaxis: SCDs Code Status: FULL Discussed Condition With: patient, nursing staff, CM Discharge Planning: Patient medically cleared for discharge. CM assisting with placement back to SNF facility. (2) Pneumonia Qualifiers: Pneumonia type: due to unspecified organism Laterality: bilateral Lung location: unspecified part of lung Qualified Code(s): J18.9 - Pneumonia, unspecified organism
[2018-01-15 07:41] LABS: Anion Gap 6 meq/L (5-15); Blood Urea Nitrogen 10 mg/dL (7-18); Calcium 8.8 mg/dL (8.5-10.1); Carbon Dioxide 31.2 meq/L (21.0-32.0); Chloride 109 meq/L (98-107); Glomerular Filtration Rate Greater Than 89 mL/min (>89); Glucose,Random 129 mg/dL (74-106); Potassium 3.9 meq/L (3.5-5.1); Sodium 146 meq/L (136-145)
[2018-01-15 08:46] VITALS: PULSE 80; RESP 16
[2018-01-15] MEDS: Senna/Docusate Sodium 8.6/50 MG Tablet G-TUBE SCH (09:14)
[2018-01-15] MEDS: Lansoprazole ODT 15 MG Tablet NG/OG SCH (09:14)
[2018-01-15] MEDS: Calcium/Vitamin D 250/125 MG Tablet NG/OG SCH (09:14)
[2018-01-15] MEDS: Sodium Chloride 0.9% 2 ML Flush BID IV.FLUSH SCH (09:15)
[2018-01-15 09:55] VITALS: BP 113/56; TEMP 98.9; O2SAT 97
== END 2018-01-15 11:35 ==
LOC: NEPE 20:14 → NEDA 22:30 → N05 01-07 00:25
PROVIDERS: ADMIT Hospitalist; ATTEND Hospitalist

== ENCOUNTER 2018-04-03 08:11 | Inpatient (IN) ==
[2018-04-03] MEDS ORDERED: Acetaminophen 650 MG Supp RECTAL ONE (08:33)
[2018-04-03] MEDS ORDERED: Vancomycin Inj 1,000 MG in Sodium Chlor 0.9% Inj 250 ML IV.SIG STA (08:33)
[2018-04-03] MEDS ORDERED: Piperacil/Tazo 4.5 GM Premix 4.5 GM/100 ML BAG IV.SIG STA (08:33)
[2018-04-03] MEDS ORDERED: Sod Chloride 0.9% Inj 1,000 ML IV.SIG SCH ×2 (08:45)
[2018-04-03] MEDS ORDERED: Sod Chloride 0.9% Inj 100 ML IV.SIG SCH (08:45)
[2018-04-03 08:57] LABS: Baso % (Auto) 0.4 % (0.0-2.0); Eos # (Auto) 0.2 th/mm3 (0.0-0.4); Eos % (Auto) 2.1 % (0.0-4.0); Hematocrit 41.8 % (39.0-51.0); Hemoglobin 14.1 gm/dL (13.0-17.0); Lymph # (Auto) 1.4 th/mm3 (1.0-4.8); Lymph % (Auto) 16.1 % (9.0-44.0); Mean Corpuscular HGB Conc 33.7 % (32.0-36.0); Mean Corpuscular Hemoglobin 32.2 pg (27.0-34.0); Mean Corpuscular Volume 95.5 fL (80.0-100.0); Mean Platelet Volume 8.7 fL (7.0-11.0); Mono # (Auto) 0.7 th/mm3 (0.0-0.9); Mono % (Auto) 8.1 % (0.0-8.0); Neut # (Auto) 6.2 th/mm3 (1.8-7.7); Neut % (Auto) 73.3 % (16.0-70.0); Platelet Count 323 th/mm3 (150-450); Red Blood Count 4.37 mil/mm3 (4.50-5.90); White Blood Count 8.4 th/mm3 (4.0-11.0)
--- NOTE | 2018-04-03 08:57 | XR ---
EXAM DATE: 04/03/2018 8:53 AM EST AGE/SEX: 27 years / Male INDICATIONS: Fever. CLINICAL DATA: This is the patient's initial encounter. Patient reports that signs and symptoms have been present for 1 day and indicates a pain score of Nonresponsive. MEDICAL/SURGICAL HISTORY: Non-responsive. Non-responsive. COMPARISON: [facility] [place], CHEST 1V SINGLE AP, 01/06/2018. . FINDINGS: The lateral left hemidiaphragm is obscured potentially by mild left base infiltrate. Right lung is gr ossly clear. Cardiac contours are satisfactory for projection. SENIOR SOFTWARE ENGINEER shunt tubing traverses the chest CONCLUSION: Mild left base parenchymal opacity Electronically signed by: Donaldo Berger MD Board Certified Radiologist 04/03/2018 8:55 AM EST
[2018-04-03 09:12] LABS: Albumin 3.3 g/dL (3.4-5.0); Anion Gap 7 meq/L (5-15); Aspartate Aminotransferase 29 U/L (15-37); Blood Urea Nitrogen 11 mg/dL (7-18); Calcium 8.9 mg/dL (8.5-10.1); Carbon Dioxide 26.3 meq/L (21.0-32.0); Chloride 108 meq/L (98-107); Glomerular Filtration Rate Greater Than 89 mL/min (>89); Glucose,Random 141 mg/dL (74-106); Magnesium 1.9 mg/dL (1.5-2.5); Potassium 3.7 meq/L (3.5-5.1); Sodium 141 meq/L (136-145)
[2018-04-03 09:13] LABS: Alanine Aminotransferase 96 U/L (12-78)
[2018-04-03 09:15] LABS: Alkaline Phosphatase 121 U/L (45-117); Total Protein 8.9 g/dL (6.4-8.2)
--- NOTE | 2018-04-03 09:44 | XR ---
EXAM DATE: 04/03/2018 9:39 AM EST AGE/SEX: 27 years / Male INDICATIONS: Evaluate for shunt patency. CLINICAL DATA: This is the patient's initial encounter. Patient reports that signs and symptoms have been present for 1 day and indicates a pain score of Nonresponsive. MEDICAL/SURGICAL HISTORY: . Congestive heart failure. Traumatic brain injury . gastric tube shunt COMPARISON: [facility], CHEST 1V SINGLE AP, 04/03/2018. . FINDINGS: 6 views of the head, neck, chest, and abdomen documents a right-sided TRAUMA SURGEON shunt in place with tubing t ip crossing midline. Tubing courses on the anterior aspect of the chest in the midline and tip termin ates in the right mid abdomen. Tubing appears intact throughout its course but is not well visualized in the proximal aspect along the skull. There is no abnormal mass effect around the tip of the shunt tubing in the right mid abdomen. There has been prior craniotomy. The visualized surrounding structu res demonstrate no acute abnormality. There is persistent airspace opacity in the left lower lobe. CONCLUSION: 1. The most proximal aspect of the tubing is not adequately visualized as it exits the calvarium but otherwise is completely intact throughout its course. There is no abnormal mass effect surrounding t he tubing tip in the right mid abdomen. 2. Stable atelectasis versus consolidation in the left lower lobe. Electronically signed by: Donaldo Mace MD Board Certified Radiologist 04/03/2018 9:43 AM EST
--- NOTE | 2018-04-03 10:07 | CT ---
EXAM DATE: 04/03/2018 9:59 AM EST AGE/SEX: 27 years / Male INDICATIONS: Altered mental status, seizure. CLINICAL DATA: This is the patient's initial encounter. Patient reports that signs and symptoms have been present for 1 day and indicates a pain score of 0/10. MEDICAL/SURGICAL HISTORY: Congestive heart failure. brain shunt, quadriparesis, traumatic brain inj ury . brain shunt RADIATION DOSE: 63.28 CTDI (mGy) ; Patient body habitus ; Tabletop exam COMPARISON: [facility] [place] HEAD W/O CONTRAST, 11/19/2017. . TECHNIQUE: CT of the head without contrast. Using automated exposure control and adjustment of the mA and/or kV according to patient size, radiation dose was kept as low as reasonably achievable to ob tain optimal diagnostic quality images. DICOM format image data is available electronically for revi ew and comparison. FINDINGS: Ventriculostomy enters from the frontal region and terminates with tip in the frontal horn of left la teral ventricle. The ventricles are markedly dilated however unchanged. There is extensive hypodensit y throughout the left hemisphere which is a stable appearance. There is no evidence of mass or hemorr liborio. There is nothing to suggest acute infarction. There are findings of previous craniotomies. Mode rate mucosal sinus disease present. CONCLUSION: Grossly stable brain appearance . Electronically signed by: Donaldo Berger MD Board Certified Radiologist 04/03/2018 10:05 AM EST
--- NOTE | 2018-04-03 10:34 | ED ---
HPI General Chief complaint: Seizure Stated complaint: Fever Time Seen by Provider: 04/03/18 08:28 Source: EMS Mode of arrival: EMS Limitations: other History of Present Illness HPI narrative: Patient is a 27-year-old male, past medical history significant for previous traumatic brain injury s/p RIVETER HAND shunt, with residual quadriparesis, G tube, who presents from his living facility with complaint of fever. Prior to arrival his temperature was 103, he has not been given anything. He may have had a seizure at his living facility though this is not clear. He may have a seizure history though this is also not clear. Patient is unable to provide me any medical history nor HPI. Associated symptoms: Reports seizure Treatments prior to arrival: Reports none Related Data Home Medications Medication Instructions Recorded Confirmed aspirin 81 mg FEEDING TUBE DAILY 11/19/17 01/06/18 calcium carbonate-vitamin D3 1 tab DAILY 11/19/17 01/06/18 [Caltrate 600 + D] glycopyrrolate 1 mg FEEDING TUBE Q8H 11/19/17 01/06/18 ipratropium-albuterol 3 ml INHALATION Q4H 11/19/17 01/06/18 lactose-reduced food with fibr 11/19/17 [Jevity 1.5 Cresencio] levetiracetam 500 mg FEEDING TUBE TID 11/19/17 01/06/18 omeprazole 10 mg FEEDING TUBE DAILY 11/19/17 01/06/18 polyethylene glycol 3350 17 g FEEDING TUBE HS 11/19/17 01/06/18 tamsulosin [Flomax] 0.4 mg DAILY 11/19/17 01/06/18 tizanidine 2 mg FEEDING TUBE Q8H 11/19/17 01/06/18 ceftriaxone 1 g QDRHS 04/03/18 04/03/18 furosemide [Lasix] 20 mg FEEDING TUBE DAILY 04/03/18 04/03/18 polyvinyl alcohol 1 drp OPHTHALMIC (EYE) TID-QID PRN 04/03/18 04/03/18 potassium chloride 15 meq FEEDING TUBE DAILY 04/03/18 04/03/18 Previous Rx's Medication Instructions Recorded Lactobacillus acidoph-L.bulgar 1 gm G-TUBE TID #90 ea 01/14/18 [Floranex] levofloxacin [Levaquin] 750 mg PO DAILY #3 tab 10/02/18 sennosides-docusate sodium [Senna 1 tab G-TUBE BID #60 tab 01/14/18 Plus] Allergies Allergy/AdvReac Type Severity Reaction Status Date / Time polymyxin B [From Polytrim] Allergy Severe Anaphylaxis Verified 11/04/17 09:11 trimethoprim [From Polytrim] Allergy Severe Anaphylaxis Verified 11/04/17 09:11 No Known Allergies Allergy Unknown Abdominal Uncoded 11/04/17 09:11 Pain Review of Systems ROS Unobtainable ROS Unobtainable: unobtainable due to mental status [facility] Medical History Medical History Atelectasis (Acute) BPH (benign prostatic hyperplasia) (Acute) CHF (congestive heart failure) (Acute) Gastrostomy tube in place (Acute) Quadriparesis (Acute) TBI (traumatic brain injury) (Acute) Surgical History Surgical History History of brain shunt (Acute) Social History Social History Substance History: No History of Abuse Second Hand Smoke Exposure: No Smoking Status: Cognitive impairment How Often Do You Have a Drink Containing Alcohol: Unable to Obtain Recent Travel in [facility] within the Last 8 Weeks: No Recent Out of Country Travel within the Last 8 Weeks: No Immunization History Tetanus Immunization: Unable to Assess Exam Narrative Exam Narrative: GENERAL: Young male in no acute distress SKIN: Focused skin assessment warm/dry. No ulcerations nor areas of skin infection HEAD: Atraumatic. Normocephalic. EYES: Pupils equal and round. No scleral icterus. No injection or drainage. ENT: No nasal bleeding or discharge. Mucous membranes pink and moist. NECK: Trachea midline. No JVD. CARDIOVASCULAR: Tachycardic but regular. No murmur appreciated. Intact and equal peripheral pulses. RESPIRATORY: Diminished breath sounds at the bases GASTROINTESTINAL: Abdomen soft, non-tender, nondistended. Hepatic and splenic margins not palpable. MUSCULOSKELETAL: Chronic contractures. No edema. NEUROLOGICAL: Awake. Unable to participate in neurologic exam. PSYCHIATRIC: unable to assess Course Consultations Consultation #1: I spoke with Dr Villatoro, Neurosurgeon chip bin conveyor tender, whom recommended that the patient have a shunt tap by IR. Time: 10:31 Initial Documented Vital Signs Temperature 102.5 F H 04/03/18 08:19 Pulse Rate 125 H 04/03/18 08:19 Respiratory Rate 28 H 04/03/18 08:19 Blood Pressure 154/76 H 04/03/18 08:19 Pulse Oximetry 96 04/03/18 08:19 Last Documented Vital Signs Temperature 98.2 F 04/03/18 10:36 Pulse Rate 111 H 04/03/18 10:36 Respiratory Rate 16 04/03/18 10:36 Blood Pressure 174/69 H 04/03/18 10:36 Pulse Oximetry 98 04/03/18 10:36 Medical Decision Making MDM Narrative Medical decision making narrative: Patient is a 27-year-old male who presents with complaint of fever and possible seizure. He is tachycardic, tachypneic, febrile and sepsis protocol for unknown source was initiated. CXR shows possible consolidation. He has not had any seizures while in the ED, but has had an episode of vomiting. I am concerned about a shunt infection (imaging reveals an intact shunt) and spoke to Dr Villatoro, neurosurgeon chip bin conveyor tender, whom had the same concern. He recommended that the patient have a shunt tap by IR, which has been ordered. He will be admitted for further evaluation and management. Medical Screen Exam Complete: Yes Emergency Medical Condition: Yes Differential Diagnosis Differential Diagnosis: Differential diagnosis includes but is not limited to sepsis, shunt infection, UTI. Medical Records Medical records reviewed: Yes I reviewed the patient's medical records. Lab Data Result diagrams: 04/03/18 08:35 04/03/18 08:35 Lab Results 04/03/18 04/03/18 04/03/18 Range/Units 08:35 08:35 08:40 WBC 8.4 (4.0-11.0) th/mm3 RBC 4.37 L (4.50-5.90) mil/mm3 Hgb 14.1 (13.0-17.0) gm/dL Hct 41.8 (39.0-51.0) % MCV 95.5 (80.0-100.0) fL MCH 32.2 (27.0-34.0) pg MCHC 33.7 (32.0-36.0) % RDW 13.0 (11.6-17.2) % Plt Count 323 (150-450) th/mm3 MPV 8.7 (7.0-11.0) fL Neut % (Auto) 73.3 H (16.0-70.0) % Lymph % (Auto) 16.1 (9.0-44.0) % Steele % (Auto) 8.1 H (0.0-8.0) % Eos % (Auto) 2.1 (0.0-4.0) % Baso % (Auto) 0.4 (0.0-2.0) % Neut # (Auto) 6.2 (1.8-7.7) th/mm3 Lymph # (Auto) 1.4 (1.0-4.8) th/mm3 Steele # (Auto) 0.7 (0.0-0.9) th/mm3 Eos # (Auto) 0.2 (0.0-0.4) th/mm3 Baso # (Auto) 0.0 (0.0-0.2) th/mm3 WBC Differential . Differential Comment Auto diff final Sodium 141 (136-145) meq/L Potassium 3.7 (3.5-5.1) meq/L Chloride 108 H (98-107) meq/L Carbon Dioxide 26.3 (21.0-32.0) meq/L Anion Gap 7 (5-15) meq/L BUN 11 (7-18) mg/dL Creatinine 0.96 (0.60-1.30) mg/dL Estimated GFR Greater than 89 (>89) mL/min Random Glucose 141 H (74-106) mg/dL Lactic Acid 2.4 H (0.4-2.0) mmol/L Calcium 8.9 (8.5-10.1) mg/dL Magnesium 1.9 (1.5-2.5) mg/dL Total Bilirubin 0.3 (0.2-1.0) mg/dL AST 29 (15-37) U/L ALT 96 H (12-78) U/L Alkaline Phosphatase 121 H (45-117) U/L Total Protein 8.9 H D (6.4-8.2) g/dL Albumin 3.3 L (3.4-5.0) g/dL Imaging Data Radiologist's impression: Chest X-Ray 04/03/18 08:33 CONCLUSION: Mild left base parenchymal opacity Head CT 04/03/18 08:33 CONCLUSION: Grossly stable brain appearance . Shunt Study 04/03/18 08:33 CONCLUSION: 1. The most proximal aspect of the tubing is not adequately visualized as it exits the calvarium but otherwise is completely intact throughout its course. There is no abnormal mass effect surrounding the tubing tip in the right mid abdomen. 2. Stable atelectasis versus consolidation in the left lower lobe. ECG Data EKG Prior to Arrival: No Attestation: I personally reviewed and interpreted this ECG as follows: (Sinus tachycardia at a rate of [address] or T wave changes.) Discharge Plan Discharge Disposition Patient Disposition: ED Admit(ED Internal Use Only) Discharge Condition Condition: Serious Discharge Order Discharge Orders: ED Use Only Admit Order (Routine); Ordered 04/03/18 Ordered By: Sheila Conrad Discharge Details Diagnosis: Sepsis Physicians Team ED Provider: Sheila Conrad Primary Care Provider: Marcio Archibald Other Providers: Anish Villatoro Rxs /Orders / Referrals /Forms Prescriptions: No Action sennosides-docusate sodium [Senna Plus] 8.6-50 mg Tablet 1 tab G-Tube BID Qty: 60 RF: 0 Lactobacillus acidoph-L.bulgar [Floranex] 100 million cell Granules In Packet 1 gm G-Tube TID Qty: 90 RF: 0 levofloxacin [Levaquin] 750 mg Tablet 750 mg PO DAILY Qty: 3 RF: 0 polyvinyl alcohol 1.4 % Drops 1 drp OPHTHALMIC (EYE) TID-QID PRN (Reason: Dry Eyes) RF: 0 ceftriaxone 1 gram Recon Soln 1 g QDRHS RF: 0 potassium chloride 20 mEq/15 mL Liquid 15 meq Feeding Tube DAILY RF: 0 furosemide [Lasix] 20 mg Tablet 20 mg Feeding Tube DAILY RF: 0 glycopyrrolate 1 mg Tablet 1 mg Feeding Tube Q8H RF: 0 ipratropium-albuterol 0.5 mg-3 mg(2.5 mg base)/3 mL Solution For Nebulization 3 ml INHALATION Q4H RF: 0 polyethylene glycol 3350 17 gram Powder In Packet 17 g Feeding Tube HS RF: 0 omeprazole 10 mg Capsule,Delayed Release(Dr/Ec) 10 mg Feeding Tube DAILY RF: 0 tamsulosin [Flomax] 0.4 mg Capsule,Extended Release 24hr 0.4 mg DAILY RF: 0 aspirin 81 mg Tablet,Chewable 81 mg Feeding Tube DAILY RF: 0 levetiracetam 100 mg/mL Solution 500 mg Feeding Tube TID RF: 0 tizanidine 2 mg Capsule 2 mg Feeding Tube Q8H RF: 0 lactose-reduced food with fibr [Jevity 1.5 Cresencio] 0.06 gram-1.5 kcal/mL Liquid RF: 0 calcium carbonate-vitamin D3 [Caltrate 600 + D] 600 mg (1,500 mg)-800 unit Tablet,Chewable 1 tab DAILY RF: 0 Status ED Status: Pending Admission
[2018-04-03 11:04] LABS: Bilirubin,Urine Negative (Negative); Clarity,Urine Hazy (Clear); Color,Urine Yellow (Yellw/Straw); Glucose,Urine (UA) Negative (Negative); Leukocyte Esterase,Urine Negative (Negative); Mucus,Urine Few /lpf (Occasional); Nitrite,Urine Negative (Negative); Specific Gravity,Urine 1.041 (1.002-1.035)
[2018-04-03] MEDS ORDERED: Vancomycin Consult Pharmacy OTHER PRN (11:07)
--- NOTE | 2018-04-03 12:25 | P.HPIM ---
History of Present Illness Primary Care Physician: Marcio Archibald MD Chief Complaint: Seziure History of Present Illness: Mr. Pina is a 27-year-old male. He has a past history of traumatic brain injury and has a FOOD AND BEVERAGE CHECKER shunt present. Seizure was witnessed at his care facility. He is also noted to have a fever. At baseline he does have risk for aspiration and in the past has had reflux and aspiration ( head of bed to remain chronically elevated at 45 degrees). Aspiration pneumonia is a possible etiology the FOOD AND BEVERAGE CHECKER shunt would be a secondary risky etiology for his symptoms also. Patient is nonverbal at baseline. No further history possible. Inpatient Certification Inpatient Certification: I certify that the inpatient services were ordered in accordance with Medicare regulations governing the order. This includes certification that hospital inpatient services are reasonable and necessary and in the case of services not specified as inpatient-only under 42 CFR 419.22(n), that they are appropriately provided as inpatient services in accordance to with the 2-midnight benchmark under 43 CFR 412.3(e) Estimated Total Length of Stay (Days): 2 Plans for Post Hospital Care: SNF Review of Systems ROS Unobtainable: unobtainable due to mental condition and unobtainable due to mental status [facility] Medical History Medical History Atelectasis (Acute) BPH (benign prostatic hyperplasia) (Acute) CHF (congestive heart failure) (Acute) Gastrostomy tube in place (Acute) Quadriparesis (Acute) TBI (traumatic brain injury) (Acute) Surgical History Surgical History History of brain shunt (Acute) Social History Social History Substance History: No History of Abuse Second Hand Smoke Exposure: No Smoking Status: Cognitive impairment How Often Do You Have a Drink Containing Alcohol: Unable to Obtain Recent Travel in [place] within the Last 8 Weeks: No Recent Out of Country Travel within the Last 8 Weeks: No Immunization History Tetanus Immunization: Unable to Assess Medications and Allergies Allergies Allergy/AdvReac Type Severity Reaction Status Date / Time polymyxin B [From Polytrim] Allergy Severe Anaphylaxis Verified 11/04/17 09:11 trimethoprim [From Polytrim] Allergy Severe Anaphylaxis Verified 11/04/17 09:11 No Known Allergies Allergy Unknown Abdominal Uncoded 11/04/17 09:11 Pain Home Medications Medication Instructions Recorded Confirmed Type aspirin 81 mg FEEDING TUBE DAILY 11/19/17 01/06/18 History calcium carbonate-vitamin D3 1 tab DAILY 11/19/17 01/06/18 History [Caltrate 600 + D] glycopyrrolate 1 mg FEEDING TUBE Q8H 11/19/17 01/06/18 History ipratropium-albuterol 3 ml INHALATION Q4H 11/19/17 01/06/18 History lactose-reduced food with fibr 11/19/17 History [Jevity 1.5 Cresencio] levetiracetam 500 mg FEEDING TUBE TID 11/19/17 01/06/18 History omeprazole 10 mg FEEDING TUBE DAILY 11/19/17 01/06/18 History polyethylene glycol 3350 17 g FEEDING TUBE HS 11/19/17 01/06/18 History tamsulosin [Flomax] 0.4 mg DAILY 11/19/17 01/06/18 History tizanidine 2 mg FEEDING TUBE Q8H 11/19/17 01/06/18 History ceftriaxone 1 g QDRHS 04/03/18 04/03/18 History furosemide [Lasix] 20 mg FEEDING TUBE DAILY 04/03/18 04/03/18 History polyvinyl alcohol 1 drp OPHTHALMIC (EYE) TID-QID PRN 04/03/18 04/03/18 History potassium chloride 15 meq FEEDING TUBE DAILY 04/03/18 04/03/18 History Active Medications: Active Medications Sodium Chloride (Ns Inj) 1,000 mls @ 0 mls/hr IV.SIG .Q0M ANSELMO Last Infusion: 04/03/18 09:46 Dose: Infused Sodium Chloride (Ns Inj) 1,000 mls @ 0 mls/hr IV.SIG .Q0M ANSELMO Last Infusion: 04/03/18 10:40 Dose: Infused Sodium Chloride (Ns Inj) 100 mls @ 0 mls/hr IV.SIG .Q0M ANSELMO Last Infusion: 04/03/18 10:42 Dose: Infused Sodium Chloride (Ns Inj) 1,000 mls @ 100 mls/hr IV.CONT .Q10H ANSELMO Piperacillin/Tazobactam/Dextrose (Zosyn 3.375 Gm Premix) 3.375 gm in 50 mls @ 100 mls/hr IV.SIG Q8H ANSELMO Vancomycin HCl 1,000 mg/ (Sodium Chloride) 250 mls @ 250 mls/hr IV.SIG Q12H ANSELMO Azithromycin 500 mg/ Sodium (Chloride) 250 mls @ 250 mls/hr IV.SIG Q24H ANSELMO Ondansetron HCl (Zofran Inj) 4 mg IV.PUSH Q6H PRN PRN Reason: NAUSEA OR VOMITING Pharmacy Profile Note (Vancomycin Consult Pharmacy) 1 each OTHER UNSCH PRN PRN Reason: Pharmacy to dose Sodium Chloride (Ns Flush) 2 ml IV.FLUSH BID ANSELMO Sodium Chloride (Ns Flush) 2 ml IV.FLUSH PRN PRN PRN Reason: FLUSH AFTER USING IV ACCESS Physical Exam Vital signs: Last Vital Signs Temp 97.8 F 04/03/18 12:14 Pulse 106 H 04/03/18 12:14 Resp 19 04/03/18 12:14 BP 143/78 H 04/03/18 12:14 Pulse Ox 98 04/03/18 12:14 Intake & Output 04/01/18 04/02/18 04/03/18 04/04/18 06:59 06:59 06:59 06:59 Intake Total 2450 / 2450 Balance 2450 / 2450 Results Labs CBC & Chem 7: 04/03/18 08:35 04/03/18 08:35 Imaging Impressions Chest X-Ray 04/03/18 08:33 CONCLUSION: Mild left base parenchymal opacity Head CT 04/03/18 08:33 CONCLUSION: Grossly stable brain appearance . Shunt Study 04/03/18 08:33 CONCLUSION: 1. The most proximal aspect of the tubing is not adequately visualized as it exits the calvarium but otherwise is completely intact throughout its course. There is no abnormal mass effect surrounding the tubing tip in the right mid abdomen. 2. Stable atelectasis versus consolidation in the left lower lobe. Caprini VTE Risk Assessment Caprini VTE Risk Assessment: No/Low Risk (score <= 1) Caprini Risk Assessment Model: Point Value = 1 Point Value = 2 Point Value = 3 Point Value = 5 Age 41-60 Minor surgery BMI > 25 kg/m2 Swollen legs Varicose veins or History of unexplained or recurrent spontaneous Oral contraceptives or hormone replacement Sepsis (< 1 month) Serious lung disease, including pneumonia (< 1 month) Abnormal pulmonary function Acute myocardial infarction Congestive heart failure (< 1 month) History of inflammatory bowel disease Medical patient at bed rest Age 61-74 Arthroscopic surgery Major open surgery (> 45 min) Laparoscopic surgery (> 45 min) Malignancy Confined to bed (> 72 hours) Immobilizing plaster cast Central venous access Age >= 75 History of VTE Family history of VTE Factor V Leiden Prothrombin [id number] Lupus anticoagulant Anticardiolipin antibodies Elevated serum homocysteine Heparin-induced thrombocytopenia Other congenital or acquired thrombophilia Stroke (< 1 month) Elective arthroplasty Hip, pelvis, or leg fracture Acute spinal cord injury (< 1 month) Prophylaxis Regimen: Total Risk Factor Score Risk Level Prophylaxis Regimen 0-1 Low Early ambulation 2 Moderate Order ONE of the following: *Sequential Compression Device (SCD) *Heparin 5000 units SQ BID 3-4 Higher Order ONE of the following medications: *Heparin 5000 units SQ TID *Enoxaparin/Lovenox 40 mg SQ daily (WT < 150 kg, CrCl > 30 mL/min) *Enoxaparin/Lovenox 30 mg SQ daily (WT < 150 kg, CrCl > 10-29 mL/min) *Enoxaparin/Lovenox 30 mg SQ BID (WT < 150 kg, CrCl > 30 mL/min) AND/OR *Sequential Compression Device (SCD) 5 or more Highest Order ONE of the following medications: *Heparin 5000 units SQ TID (Preferred with Epidurals) *Enoxaparin/Lovenox 40 mg SQ daily (WT < 150 kg, CrCl > 30 mL/min) *Enoxaparin/Lovenox 30 mg SQ daily (WT < 150 kg, CrCl > 10-29 mL/min) *Enoxaparin/Lovenox 30 mg SQ BID (WT < 150 kg, CrCl > 30 mL/min) AND *Sequential Compression Device (SCD) Assessment and Plan Plan 27-year-old male admitted secondary to breakthrough seizure with fever Sepsis Tachycardia Fever Treat for bacterial infection Follow on telemetry Follow for resolution of sepsis Possible pneumonia Risk for aspiration and healthcare associated pneumonia Azithromycin, Zosyn, vancomycin Follow clinically Oxygen supplementation as needed Breakthrough seizure risk for FOOD AND BEVERAGE CHECKER shunt infection Neurology consulted FOOD AND BEVERAGE CHECKER shunt testing planned with IR Chronic encephalopathy Nonverbal chronically History of traumatic brain injury Supportive Care Benign prostatic hypertrophy Chronic PEG tube Chronic quadriparesis Chronic systolic CHF No exacerbation of these conditions Continue baseline treatments Follow clinically DVT prophylaxis SCDs
[2018-04-03] MEDS ORDERED: Artificial Tears Opth Drops 15 ML Bottle EACH EYE PRN (12:30)
[2018-04-03] MEDS: Azithromycin Inj 500 MG in Sodium Chlor 0.9% Inj 250 ML IV.SIG SCH (12:45)
[2018-04-03] MEDS: Sod Chloride 0.9% Inj 1,000 ML IV.CONT SCH ×2 (13:57→21:40)
[2018-04-03] MEDS ORDERED: Iohexol 300 MG/ML 50 ML Vial (for Rad Diag) IVCONTRAST ONE (15:22)
--- NOTE | 2018-04-03 15:36 | P.RAD ---
Post Procedure Progress Note - Pre Procedure Diagnosis (1) Hydrocephaly - Post Procedure Diagnosis (1) Hydrocephaly - Procedure Information Procedure Date: 04/03/18 Supervising Radiologist: Jose Alba Jr, MD Estimated blood loss (mL): 0 Anesthesia: Other - Plan of Activity Patient to Unit: Nursing Unit Patient Condition: Good Additional Comments: CSF taken and sent. Shuntogram shows shunt to be patent. See PACS Report for procedural detail/treatment.
[2018-04-03 16:12] LABS: Total Protein,CSF 41.5 mg/dL (15.0-45.0)
--- NOTE | 2018-04-03 16:13 | IR ---
EXAM DATE: 04/03/2018 3:35 PM EST AGE/SEX: 27 years / Male INDICATIONS: Patient with history of Traumatic Brain Injury in need of Shuntogram with Cerebral Spin al Fluid collection for evaluation of possible infection. CLINICAL DATA: This is the patient's initial encounter. Patient reports that signs and symptoms have been present for 1 day and indicates a pain score of Nonresponsive. MEDICAL/SURGICAL HISTORY: . Atelectasis, BPH, CHF, Quadriparesis, Traumatic Brain Injury . Br ain Shunt. COMPARISON: No prior exams available for comparison. FLUORO TIME (min): 4.4 IMAGE SERIES: 5 RADIATION DOSE: 512.8 mGy CONTRAST (cc): 10cc Omni 300 . . PROCEDURE: 1. Fluoroscopically guided shuntogram. The risks, benefits and alternatives to the procedure were explained and verbal and written consent w as obtained. The site was prepped in sterile fashion. Full sterile technique was used, including ca p, mask, sterile gloves and gown and a large sterile sheet. Hand hygiene and 2% chlorhexidine and/or betadine/alcohol prep was utilized per protocol for cutaneous antisepsis. The skin and subcutaneous tissues were infiltrated with local anesthetic solution. With fluoroscopic guidance the previously placed shunt was accessed with a 23 gauge butterfly needle and 9 mL of CSF fluid was removed and sent for evaluation as requested. Under fluoroscopic control po sitive contrast was injected. Images through the course of the catheter were performed showing patency to the catheter. The contras t spills into the peritoneal space without loculation. CONCLUSION: 1. CSF obtained and sent for evaluation. 2. Patent ventriculoperitoneal shunt. Electronically signed by: Jose Alba MD Board Certified Radiologist 04/03/2018 4:12 PM EST
[2018-04-03 16:42] LABS: Basophils,CSF 1 %; Lymphocytes, CSF 10 %; Monocytes,CSF 82 %; Neutrophils,CSF 6 %; RBC on Tube 4 0 /mm3
--- NOTE | 2018-04-03 17:06 | P.CONNS ---
History of Present Illness Service: neurosurg Consult date: 04/03/18 Requesting Physician: Sheila Conrad Reason for Consult: CHEESE PANCAKE ROLLER Shunt Primary Care Provider: Marcio Archibald MD Chief Complaint: Seziure History of Present Illness: This is a 27-year-old male with history of a severe traumatic brain injury and has a CHEESE PANCAKE ROLLER shunt. He also has a seizure disorder. He suffered roxy a Seizure was witnessed at his care facility. He is also noted to have a fever. At baseline he has a poor mental condition, he is undresponsive and he has risk for aspiration. In the past has had reflux and aspiration (head of bed to remain chronically elevated at 45 degrees). Aspiration pneumonia. The ER physician determined that his CHEESE PANCAKE ROLLER shunt would be a secondary risky etiology for his symptoms. He remains nonverbal at baseline. No further history is obtainable. Neurosurgery consultation was requested Review of Systems unobtainable due to mental status PMFSH - History History Provided By: Family Member - Medical History Medical History: Medical History (Last Reviewed 04/03/18 @ 17:01 by Anish Villatoro MD) Atelectasis BPH (benign prostatic hyperplasia) CHF (congestive heart failure) Gastrostomy tube in place Quadriparesis TBI (traumatic brain injury) - Surgical History Surgical History: Surgical History (Last Reviewed 04/03/18 @ 17:02 by Anish Villatoro MD) History of brain shunt - Social History I have reviewed the patient's Social History: Yes - Tobacco History Second Hand Smoke Exposure: No Tobacco Use In Past 30 Days: No Smoking Status: Cognitive impairment - Alcohol History How Often Do You Have a Drink Containing Alcohol: Never - Substance Use History Substance History: No History of Abuse - Travel History Recent Travel in the [place] Within the Last 8 Weeks: No Recent Travel Out of the Country Within the Last 8 Weeks: No - Immunization History Tetanus Immunization: Unsure Hx Influenza Vaccine This Season: Yes Medications and Allergies Active Medications: Active Medications Albuterol (Duoneb Neb (Fabienne)) 1 ampul NEB Q4HR NEB [facility]NE Last Admin: 04/03/18 13:31 Dose: 1 ampul Artificial Tears (Tears Naturale Opth Drops) 1 drop EACH EYE QID PRN PRN Reason: SEE LABEL COMMENTS Furosemide (Lasix) 20 mg G-TUBE DAILY F[facility]NE Sodium Chloride (Ns Inj) 1,000 mls @ 0 mls/hr IV.SIG .Q0M FABIENNE Last Infusion: 04/03/18 09:46 Dose: Infused Sodium Chloride (Ns Inj) 1,000 mls @ 0 mls/hr IV.SIG .Q0M FABIENNE Last Infusion: 04/03/18 10:40 Dose: Infused Sodium Chloride (Ns Inj) 100 mls @ 0 mls/hr IV.SIG .Q0M FABIENNE Last Infusion: 04/03/18 10:42 Dose: Infused Sodium Chloride (Ns Inj) 1,000 mls @ 100 mls/hr IV.CONT .Q10H F[facility]IENNE Last Admin: 04/03/18 13:57 Dose: 100 mls/hr Piperacillin/Tazobactam/Dextrose (Zosyn 3.375 Gm Premix) 3.375 gm in 50 mls @ 100 mls/hr IV.SIG Q8H FABIENNE Vancomycin HCl 1,000 mg/ (Sodium Chloride) 250 mls @ 250 mls/hr IV.SIG Q12H F[facility]NE Azithromycin 500 mg/ Sodium (Chloride) 250 mls @ 250 mls/hr IV.SIG Q24H FABIENNE Last Infusion: 04/03/18 14:05 Dose: Infused Lactobacillus Acidophilus (Lactinex Pkt) 1 gm G-TUBE TID [facility] Last Admin: 04/03/18 14:44 Dose: Not Given Levetiracetam (Keppra Liq) 500 mg G-TUBE TID [facility] Last Admin: 04/03/18 14:43 Dose: Not Given Miscellaneous Information ([facility] Ordered Lab Info) 0 each OTHER ONCE ONE Stop: 04/04/18 09:46 Ondansetron HCl (Zofran Inj) 4 mg IV.PUSH Q6H PRN PRN Reason: NAUSEA OR VOMITING Pharmacy Profile Note (Vancomycin Consult Pharmacy) 1 each OTHER UNSCH PRN PRN Reason: Pharmacy to dose Potassium Bicarb/Potassium Chloride (K-Lyte Cl Eff) 25 meq G-TUBE DAILY [facility] Sodium Chloride (Ns Flush) 2 ml IV.FLUSH BID F[facility]NE Sodium Chloride (Ns Flush) 2 ml IV.FLUSH PRN PRN PRN Reason: FLUSH AFTER USING IV ACCESS Tamsulosin HCl (Flomax) 0.4 mg PO DAILY [facility] Allergies Allergy/AdvReac Type Severity Reaction Status Date / Time polymyxin B [From Polytrim] Allergy Severe Anaphylaxis Verified 11/04/17 09:11 trimethoprim [From Polytrim] Allergy Severe Anaphylaxis Verified 11/04/17 09:11 No Known Allergies Allergy Unknown Abdominal Uncoded 11/04/17 09:11 Pain Home Medications Medication Instructions Recorded Confirmed Type aspirin 81 mg FEEDING TUBE DAILY 11/19/17 01/06/18 History calcium carbonate-vitamin D3 1 tab DAILY 11/19/17 01/06/18 History [Caltrate 600 + D] glycopyrrolate 1 mg FEEDING TUBE Q8H 11/19/17 01/06/18 History ipratropium-albuterol 3 ml INHALATION Q4H 11/19/17 01/06/18 History lactose-reduced food with fibr 11/19/17 History [Jevity 1.5 Cresencio] levetiracetam 500 mg FEEDING TUBE TID 11/19/17 01/06/18 History omeprazole 10 mg FEEDING TUBE DAILY 11/19/17 01/06/18 History polyethylene glycol 3350 17 g FEEDING TUBE HS 11/19/17 01/06/18 History tamsulosin [Flomax] 0.4 mg DAILY 11/19/17 01/06/18 History tizanidine 2 mg FEEDING TUBE Q8H 11/19/17 01/06/18 History ceftriaxone 1 g QDRHS 04/03/18 04/03/18 History furosemide [Lasix] 20 mg FEEDING TUBE DAILY 04/03/18 04/03/18 History polyvinyl alcohol 1 drp OPHTHALMIC (EYE) TID-QID PRN 04/03/18 04/03/18 History potassium chloride 15 meq FEEDING TUBE DAILY 04/03/18 04/03/18 History Exam Vital signs: Vital Signs 04/03/18 08:19 04/03/18 08:55 04/03/18 08:56 Temperature 102.5 F H Pulse Rate 125 H 120 H Respiratory Rate 28 H Blood Pressure 154/76 H Pulse Oximetry 96 99 04/03/18 09:06 04/03/18 10:00 04/03/18 10:36 Temperature 99.1 F 98.2 F Pulse Rate 111 H Respiratory Rate 16 Blood Pressure 174/69 H Pulse Oximetry 99 98 04/03/18 11:42 04/03/18 12:14 04/03/18 13:33 Temperature 97.8 F Pulse Rate 105 H 106 H 105 H Respiratory Rate 16 19 20 Blood Pressure 181/73 H 143/78 H Pulse Oximetry 98 98 04/03/18 14:04 Temperature Pulse Rate 107 H Respiratory Rate Blood Pressure 167/80 H Pulse Oximetry 98 Intake & Output 04/02/18 04/03/18 04/03/18 18:59 06:59 18:59 Intake Total 2700 / 2700 Balance 2700 / 2700 Weight 77.564 kg Intake: IV 2700 / 2700 Azithromycin Inj 500 MG In NS 250 / 250 Inj 250 ML @ 250 mls/hr IV.SIG Q24H [facility] Rx#:[id number] Zosyn 4.5 GM Premix 4.5 gm In 100 / 100 100 ml @ 200 mls/hr IV.SIG STAT STA Rx#:[id number] NS Inj 100 ML @ Wide Open IV. 2100 / 2100 SIG .Q0M F[facility]IENNE Rx#:[id number] Vancomycin Inj 1,000 MG In NS 250 / 250 Inj 250 ML @ 250 mls/hr IV.SIG STAT STA Rx#:[id number] Results - Laboratory Findings CBC and BMP: 04/03/18 08:35 04/03/18 08:35 Abnormal lab findings: Abnormal Labs 04/03/18 04/03/18 04/03/18 08:35 08:35 08:40 RBC 4.37 L Neut % (Auto) 73.3 H [place] % (Auto) 8.1 H Chloride 108 H Random Glucose 141 H Lactic Acid 2.4 H ALT 96 H Alkaline Phosphatase 121 H Total Protein 8.9 H D Albumin 3.3 L Urine Clarity Ur Specific [place] Urine Protein Urine Ketones Urine Mucus CSF Glucose 04/03/18 04/03/18 10:00 15:00 RBC Neut % (Auto) [place] % (Auto) Chloride Random Glucose Lactic Acid ALT Alkaline Phosphatase Total Protein Albumin Urine Clarity Hazy H Ur Specific [place] 1.041 H Urine Protein 100 H Urine Ketones Trace H Urine Mucus Few H CSF Glucose 103 H Assessment and Plan - Plan 27-year-old male admitted secondary to breakthrough seizure with fever I have reviewed the clinical and radiological findings Chest X-Ray 04/03/18 08:33 CONCLUSION: Mild left base parenchymal opacity Head CT 04/03/18 08:33 CONCLUSION: Grossly stable brain appearance Shunt Study 04/03/18 08:33 CONCLUSION: 1. The most proximal aspect of the tubing is not adequately visualized as it exits the calvarium but otherwise is completely intact throughout its course. There is no abnormal mass effect surrounding the tubing tip in the right mid abdomen. 2. Stable atelectasis versus consolidation in the left lower lobe. Neuro: neuro checks in a serial fashion. Recommend shunt tap and send CSF for cultures Pulmonary: aggressive pulmonary toilette, nasotracheal suction, and breathing treatments with nebulizers. Daily PT and OT Renal: Continue to monitor closely urine output, BUN and creatinine Endocrine: Continue to Monitor serial Acu checks and SSI as needed in detail ID continue to monitor for signs of infection Continue Protonix for stress ulcer prophylaxis Continue Alex hose and SCD's for DVT prophylaxis Caprini VTE Risk Assessment Caprini VTE Risk Assessment: No/Low Risk (score <= 1) Caprini Risk Assessment Model: Point Value = 1 Point Value = 2 Point Value = 3 Point Value = 5 Age 41-60 Minor surgery BMI > 25 kg/m2 Swollen legs Varicose veins or History of unexplained or recurrent spontaneous Oral contraceptives or hormone replacement Sepsis (< 1 month) Serious lung disease, including pneumonia (< 1 month) Abnormal pulmonary function Acute myocardial infarction Congestive heart failure (< 1 month) History of inflammatory bowel disease Medical patient at bed rest Age 61-74 Arthroscopic surgery Major open surgery (> 45 min) Laparoscopic surgery (> 45 min) Malignancy Confined to bed (> 72 hours) Immobilizing plaster cast Central venous access Age >= 75 History of VTE Family history of VTE Factor V Leiden Prothrombin [id number] Lupus anticoagulant Anticardiolipin antibodies Elevated serum homocysteine Heparin-induced thrombocytopenia Other congenital or acquired thrombophilia Stroke (< 1 month) Elective arthroplasty Hip, pelvis, or leg fracture Acute spinal cord injury (< 1 month) Prophylaxis Regimen: Total Risk Factor Score Risk Level Prophylaxis Regimen 0-1 Low Early ambulation 2 Moderate Order ONE of the following: *Sequential Compression Device (SCD) *Heparin 5000 units SQ BID 3-4 Higher Order ONE of the following medications: *Heparin 5000 units SQ TID *Enoxaparin/Lovenox 40 mg SQ daily (WT < 150 kg, CrCl > 30 mL/min) *Enoxaparin/Lovenox 30 mg SQ daily (WT < 150 kg, CrCl > 10-29 mL/min) *Enoxaparin/Lovenox 30 mg SQ BID (WT < 150 kg, CrCl > 30 mL/min) AND/OR *Sequential Compression Device (SCD) 5 or more Highest Order ONE of the following medications: *Heparin 5000 units SQ TID (Preferred with Epidurals) *Enoxaparin/Lovenox 40 mg SQ daily (WT < 150 kg, CrCl > 30 mL/min) *Enoxaparin/Lovenox 30 mg SQ daily (WT < 150 kg, CrCl > 10-29 mL/min) *Enoxaparin/Lovenox 30 mg SQ BID (WT < 150 kg, CrCl > 30 mL/min) AND *Sequential Compression Device (SCD)
[2018-04-03] MEDS: Piperacil/Tazo 3.375 GM Premix 3.375 GM/50 ML PIGGYBACK IV.SIG SCH (17:26)
--- NOTE | 2018-04-03 17:40 | ECG ---
Date Performed: 04/03/2018 Time Performed: 08:35:51 PTAGE: 27 years EKG: SINUS TACHYCARDIA VOLTAGE CRITERIA FOR LVH NONSPECIFIC T-WAVE ABNORMALITY ABNORMAL ECG Sinc e PREVIOUS TRACING , no significant change noted PREVIOUS TRACIN01/06/2018 20.24 DOCTOR: Marc Nuñez Interpretating Date/Time 04/03/2018 17:38:10
[2018-04-03] MEDS: Vancomycin Inj 1,000 MG in Sodium Chlor 0.9% Inj 250 ML IV.SIG SCH (21:33)
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
[2018-04-04] MEDS: Piperacil/Tazo 3.375 GM Premix 3.375 GM/50 ML PIGGYBACK IV.SIG SCH ×2 (01:44→08:20)
[2018-04-04 07:24] LABS: Glomerular Filtration Rate Greater Than 89 mL/min (>89)
[2018-04-04] MEDS: Sod Chloride 0.9% Inj 1,000 ML IV.CONT SCH ×2 (07:26→17:02)
--- NOTE | 2018-04-04 07:53 | P.PNNEU ---
Subjective Active Medications: Active Medications Albuterol (Duoneb Neb (Fabienne)) 1 ampul NEB Q4HR NEB FABIENNE Last Admin: 04/04/18 07:46 Dose: 1 ampul Artificial Tears (Tears Naturale Opth Drops) 1 drop EACH EYE QID PRN PRN Reason: SEE LABEL COMMENTS Furosemide (Lasix) 20 mg G-TUBE DAILY F[facility]IENNE Sodium Chloride (Ns Inj) 1,000 mls @ 0 mls/hr IV.SIG .Q0M FABIENNE Last Infusion: 04/03/18 09:46 Dose: Infused Sodium Chloride (Ns Inj) 1,000 mls @ 0 mls/hr IV.SIG .Q0M FABIENNE Last Infusion: 04/03/18 10:40 Dose: Infused Sodium Chloride (Ns Inj) 100 mls @ 0 mls/hr IV.SIG .Q0M FABIENNE Last Infusion: 04/03/18 10:42 Dose: Infused Sodium Chloride (Ns Inj) 1,000 mls @ 100 mls/hr IV.CONT .Q10H [facility]IENNE Last Admin: 04/04/18 07:26 Dose: 100 mls/hr Piperacillin/Tazobactam/Dextrose (Zosyn 3.375 Gm Premix) 3.375 gm in 50 mls @ 100 mls/hr IV.SIG Q8H FABIENNE Last Infusion: 04/04/18 02:15 Dose: Infused Vancomycin HCl 1,000 mg/ (Sodium Chloride) 250 mls @ 250 mls/hr IV.SIG Q12H FABIENNE Last Infusion: 04/03/18 22:35 Dose: Infused Azithromycin 500 mg/ Sodium (Chloride) 250 mls @ 250 mls/hr IV.SIG Q24H FABIENNE Last Infusion: 04/03/18 14:05 Dose: Infused Lactobacillus Acidophilus (Lactinex Pkt) 1 gm G-TUBE TID [facility]NE Last Admin: 04/03/18 17:37 Dose: 1 gm Levetiracetam (Keppra Liq) 1,000 mg G-TUBE BID [facility]NE Last Admin: 04/03/18 21:46 Dose: 1,000 mg Miscellaneous Information ([facility] Ordered Lab Info) 0 each OTHER ONCE ONE Stop: 04/04/18 09:46 Ondansetron HCl (Zofran Inj) 4 mg IV.PUSH Q6H PRN PRN Reason: NAUSEA OR VOMITING Pharmacy Profile Note (Vancomycin Consult Pharmacy) 1 each OTHER UNSCH PRN PRN Reason: Pharmacy to dose Potassium Bicarb/Potassium Chloride (K-Lyte Cl Eff) 25 meq G-TUBE DAILY [facility] Sodium Chloride (Ns Flush) 2 ml IV.FLUSH BID [facility] Last Admin: 04/03/18 21:39 Dose: 2 ml Sodium Chloride (Ns Flush) 2 ml IV.FLUSH PRN PRN PRN Reason: FLUSH AFTER USING IV ACCESS Tamsulosin HCl (Flomax) 0.4 mg PO DAILY [facility] Allergies/Adverse Reactions: Allergies Allergy/AdvReac Type Severity Reaction Status Date / Time polymyxin B [From Polytrim] Allergy Severe Anaphylaxis Verified 11/04/17 09:11 trimethoprim [From Polytrim] Allergy Severe Anaphylaxis Verified 11/04/17 09:11 No Known Allergies Allergy Unknown Abdominal Uncoded 11/04/17 09:11 Pain Physical Exam Vital signs: Vital Signs 04/03/18 08:19 04/03/18 08:55 04/03/18 08:56 Temperature 102.5 F H Pulse Rate 125 H 120 H Respiratory Rate 28 H Blood Pressure 154/76 H Pulse Oximetry 96 99 04/03/18 09:06 04/03/18 10:00 04/03/18 10:36 Temperature 99.1 F 98.2 F Pulse Rate 111 H Respiratory Rate 16 Blood Pressure 174/69 H Pulse Oximetry 99 98 04/03/18 11:42 04/03/18 12:14 04/03/18 13:33 Temperature 97.8 F Pulse Rate 105 H 106 H 105 H Respiratory Rate 16 19 20 Blood Pressure 181/73 H 143/78 H Pulse Oximetry 98 98 04/03/18 14:04 04/03/18 15:35 04/03/18 17:17 Temperature 98.1 F Pulse Rate 107 H 99 H 98 H Respiratory Rate 16 16 Blood Pressure 167/80 H 145/75 H Pulse Oximetry 98 98 04/03/18 20:00 04/03/18 21:35 04/03/18 23:45 Temperature 99.1 F Pulse Rate 109 H 103 H 111 H Respiratory Rate 18 21 17 Blood Pressure 132/62 Pulse Oximetry 98 95 04/03/18 23:56 04/04/18 00:00 04/04/18 03:25 Temperature 98.9 F Pulse Rate 114 H 113 H 112 H Respiratory Rate 18 16 Blood Pressure 133/58 L Pulse Oximetry 97 04/04/18 03:45 04/04/18 04:00 Temperature 99.6 F Pulse Rate 119 H 112 H Respiratory Rate 18 Blood Pressure 129/66 Pulse Oximetry 100 Intake & Output 04/03/18 04/04/18 04/04/18 18:59 06:59 18:59 Intake Total 2750 / 2750 1873 / 1873 252 / 252 Output Total 950 / 950 2650 / 2650 Balance 1800 / 1800 -777 / -777 252 / 252 Weight 84 kg 84 kg Intake: IV 2750 / 2750 1048 / 1048 252 / 252 NS Inj 1,000 ML @ 100 mls/hr IV 748 / 748 252 / 252 .CONT .Q10H [facility]IENNE Rx#:[id number] Azithromycin Inj 500 MG In NS 250 / 250 Inj 250 ML @ 250 mls/hr IV.SIG Q24H [facility]NE Rx#:[id number] Zosyn 3.375 GM Premix 3.375 gm 50 / 50 50 / 50 In 50 ml @ 100 mls/hr IV.SIG Q8H [facility] Rx#:[id number] Zosyn 4.5 GM Premix 4.5 gm In 100 / 100 100 ml @ 200 mls/hr IV.SIG STAT STA Rx#:[id number] NS Inj 100 ML @ Wide Open IV. 2100 / 2100 SIG .Q0M FABIENNE Rx#:[id number] Vancomycin Inj 1,000 MG In NS 250 / 250 250 / 250 Inj 250 ML @ 250 mls/hr IV.SIG Q12H [facility]NE Rx#:[id number] Oral 0 / 0 Tube Feeding 825 / 825 Output: Urine 950 / 950 2650 / 2650 Other: Date of Last Bowel Movement 04/03/18 # Bowel Movements 2 Weight On Admission 84 kg Narrative: nonrespionsive eyes open and roving - Urinary Catheter Management Indwelling Temp Sensing Catheter Cath placed during this visit: yes, but has since been removed by the nurse Reason for continuing: Decision to DC catheter Insertion date: 04/03/18 Insertion time: 10:25 Removal date: 04/04/18 Removal time: 05:00 Objective Laboratory Results - last 24 hr 04/03/18 04/03/18 04/03/18 08:35 08:35 08:40 WBC 8.4 RBC 4.37 L Hgb 14.1 Hct 41.8 MCV 95.5 MCH 32.2 MCHC 33.7 RDW 13.0 Plt Count 323 MPV 8.7 Neut % (Auto) 73.3 H Lymph % (Auto) 16.1 [place] % (Auto) 8.1 H Eos % (Auto) 2.1 Baso % (Auto) 0.4 Neut # (Auto) 6.2 Lymph # (Auto) 1.4 [place] # (Auto) 0.7 Eos # (Auto) 0.2 Baso # (Auto) 0.0 WBC Differential . Differential Comment Auto diff final Sodium 141 Potassium 3.7 Chloride 108 H Carbon Dioxide 26.3 Anion Gap 7 BUN 11 Creatinine 0.96 Estimated GFR Greater than 89 Random Glucose 141 H Lactic Acid 2.4 H Calcium 8.9 Magnesium 1.9 Total Bilirubin 0.3 AST 29 ALT 96 H Alkaline Phosphatase 121 H Total Protein 8.9 H D Albumin 3.3 L Urine Color Urine Clarity Urine pH Ur Specific [place] Urine Protein Urine Glucose (UA) Urine Ketones Urine Occult Blood Urine Nitrate Urine Bilirubin Urine Urobilinogen Ur Leukocyte Esterase Urine RBC Urine WBC Urine Mucus Micro UA Comment Ur Microscopic Review Urine Culture Comments CSF Volume (1) CSF Supernat Color (1) CSF Gross Blood (1) CSF Volume (2) CSF Supernat Color (2) CSF Gross Blood (2) CSF Volume (3) CSF Supernat Color (3) CSF Gross Blood (3) CSF Volume (4) CSF Supernat Color (4) CSF Gross Blood (4) CSF WBC (4) CSF RBC (4) CSF Neutrophils % CSF Lymphocytes % CSF Monocytes % CSF Basophils % CSF Histiocytes CSF Glucose CSF Total Protein CSF N.mening B/E.coli K1 CSF N.meningitidis A/Y Bacterial Ag Source H.influenzae Type B Ag N. meningitidis C/W 135 Group B Strep Antigen S. pneumoniae Antigen 04/03/18 04/03/18 04/03/18 10:00 11:23 15:00 WBC RBC Hgb Hct MCV MCH MCHC RDW Plt Count MPV Neut % (Auto) Lymph % (Auto) [place] % (Auto) Eos % (Auto) Baso % (Auto) Neut # (Auto) Lymph # (Auto) [place] # (Auto) Eos # (Auto) Baso # (Auto) WBC Differential Differential Comment Sodium Potassium Chloride Carbon Dioxide Anion Gap BUN Creatinine Estimated GFR Random Glucose Lactic Acid 1.3 Calcium Magnesium Total Bilirubin AST ALT Alkaline Phosphatase Total Protein Albumin Urine Color Yellow Urine Clarity Hazy H Urine pH 5.0 Ur Specific [place] 1.041 H Urine Protein 100 H Urine Glucose (UA) Negative Urine Ketones Trace H Urine Occult Blood Negative Urine Nitrate Negative Urine Bilirubin Negative Urine Urobilinogen Less than 2 Ur Leukocyte Esterase Negative Urine RBC Less than 1 Urine WBC 1 Urine Mucus Few H Micro UA Comment Cath-culture not ind Ur Microscopic Review Not Reportable Urine Culture Comments Cath-cult not ind CSF Volume (1) CSF Supernat Color (1) CSF Gross Blood (1) CSF Volume (2) CSF Supernat Color (2) CSF Gross Blood (2) CSF Volume (3) CSF Supernat Color (3) CSF Gross Blood (3) CSF Volume (4) CSF Supernat Color (4) CSF Gross Blood (4) CSF WBC (4) CSF RBC (4) CSF Neutrophils % CSF Lymphocytes % CSF Monocytes % CSF Basophils % CSF Histiocytes CSF Glucose CSF Total Protein CSF N.mening B/E.coli K1 Cancelled CSF N.meningitidis A/Y Cancelled Bacterial Ag Source Cancelled H.influenzae Type B Ag Cancelled N. meningitidis C/W 135 Cancelled Group B Strep Antigen Cancelled S. pneumoniae Antigen Cancelled 04/03/18 04/03/18 04/03/18 15:00 15:00 15:00 WBC RBC Hgb Hct MCV MCH MCHC RDW Plt Count MPV Neut % (Auto) Lymph % (Auto) [place] % (Auto) Eos % (Auto) Baso % (Auto) Neut # (Auto) Lymph # (Auto) [place] # (Auto) Eos # (Auto) Baso # (Auto) WBC Differential Differential Comment Sodium Potassium Chloride Carbon Dioxide Anion Gap BUN Creatinine Estimated GFR Random Glucose Lactic Acid Calcium Magnesium Total Bilirubin AST ALT Alkaline Phosphatase Total Protein Albumin Urine Color Urine Clarity Urine pH Ur Specific [place] Urine Protein Urine Glucose (UA) Urine Ketones Urine Occult Blood Urine Nitrate Urine Bilirubin Urine Urobilinogen Ur Leukocyte Esterase Urine RBC Urine WBC Urine Mucus Micro UA Comment Ur Microscopic Review Urine Culture Comments CSF Volume (1) 2.0 CSF Supernat Color (1) Clear CSF Gross Blood (1) 0 CSF Volume (2) 2.0 CSF Supernat Color (2) Clear CSF Gross Blood (2) 0 CSF Volume (3) 2.0 CSF Supernat Color (3) Clear CSF Gross Blood (3) 0 CSF Volume (4) 2.5 CSF Supernat Color (4) Clear CSF Gross Blood (4) 0 CSF WBC (4) 7 CSF RBC (4) 0 CSF Neutrophils % 6 CSF Lymphocytes % 10 CSF Monocytes % 82 CSF Basophils % 1 CSF Histiocytes 1 CSF Glucose 103 H CSF Total Protein 41.5 Cancelled CSF N.mening B/E.coli K1 CSF N.meningitidis A/Y Bacterial Ag Source H.influenzae Type B Ag N. meningitidis C/W 135 Group B Strep Antigen S. pneumoniae Antigen 04/04/18 06:23 WBC RBC Hgb Hct MCV MCH MCHC RDW Plt Count MPV Neut % (Auto) Lymph % (Auto) [place] % (Auto) Eos % (Auto) Baso % (Auto) Neut # (Auto) Lymph # (Auto) [place] # (Auto) Eos # (Auto) Baso # (Auto) WBC Differential Differential Comment Sodium Potassium Chloride Carbon Dioxide Anion Gap BUN Creatinine 0.64 Estimated GFR Greater than 89 Random Glucose Lactic Acid Calcium Magnesium Total Bilirubin AST ALT Alkaline Phosphatase Total Protein Albumin Urine Color Urine Clarity Urine pH Ur Specific [place] Urine Protein Urine Glucose (UA) Urine Ketones Urine Occult Blood Urine Nitrate Urine Bilirubin Urine Urobilinogen Ur Leukocyte Esterase Urine RBC Urine WBC Urine Mucus Micro UA Comment Ur Microscopic Review Urine Culture Comments CSF Volume (1) CSF Supernat Color (1) CSF Gross Blood (1) CSF Volume (2) CSF Supernat Color (2) CSF Gross Blood (2) CSF Volume (3) CSF Supernat Color (3) CSF Gross Blood (3) CSF Volume (4) CSF Supernat Color (4) CSF Gross Blood (4) CSF WBC (4) CSF RBC (4) CSF Neutrophils % CSF Lymphocytes % CSF Monocytes % CSF Basophils % CSF Histiocytes CSF Glucose CSF Total Protein CSF N.mening B/E.coli K1 CSF N.meningitidis A/Y Bacterial Ag Source H.influenzae Type B Ag N. meningitidis C/W 135 Group B Strep Antigen S. pneumoniae Antigen Microbiology 04/03/18 15:00 Gram Stain - Final Shunt Fluid Review/Management - Review/Management Plan: imp fu eeg and if neg ok for keppra 1000 bid and dc neurowise i dw monm last noc about making him dnr she will think about if
[2018-04-04] MEDS: Potassium Chloride 25 MEQ Effervescent Tablet G-TUBE SCH (08:19)
[2018-04-04] MEDS: Furosemide 20 MG Tablet G-TUBE SCH (08:19)
[2018-04-04] MEDS ORDERED: Pharmacy Ordered Lab Info OTHER ONE (09:45)
[2018-04-04] MEDS: Vancomycin Inj 1,000 MG in Sodium Chlor 0.9% Inj 250 ML IV.SIG SCH ×2 (11:21→21:01)
--- NOTE | 2018-04-04 11:23 | P.DIET ---
Nutritional Evaluation Type of nutrition evaluation: initial Nutrition consult regarding: Tube Feeding Screening comments: 04/04 TF review Objective - Diagnosis Sepsis, possible shunt infection - Objective Body Mass Index: 27 [place] body weight: 70 kg % IBW: 120 Body Weight Used for Calculations: IBW (70kg) Energy Needs - Lower Range (kCal/kg): 22 (decreased needs 2/2 quadriparesis) Energy Needs - Upper Range (kCal/kg): 25 Lower Limit kCal/kg (kCals): 1,540 Upper Limit kCal/kg (kCals): 1,750 Lower Limit Protein Factor (Grams per Kg): 0.8 Upper Limit Protein Factor (Grams per Kg): 1 Lower Protein Needs (Protein): 56 Upper Protein Needs (Protein): 70 Dietitian Reviewed in Medical Record: Curent medications, Intake & Output, Labs , Tube feeding Diet Order: TF Objective Comments: PMH; previous TBI, quadriparesis Labs; random glucose 141 Medications; reviewed Assessment Assessment: 04/04 TF review. Pt is currently at nutritional risk 2/2 PMH and PEG dependance. Pt with PMH of TBI s/p SAUSAGE CUTTER shunt and quadriparesis. Pt is nonverbal at baseline with quadriparesis but per RN he is able to mobilize himself to an extent. After assessment of pt's needs will recommend to continue with current TF order of Jevity 1.5 @ 75ml/hour running from 6p-8a to provide 1575kcal, 66g protein and 798ml free water to best meet pt's assessed nutritional needs. Free water flush per MD. Labs and medications reviewed, will continue to monitor clinical course and tolerance to TF. Recommendations: 1. Jevity 1.5 at 75ml/ hour from 6p-8a 2. Monitor tolerance to TF
--- NOTE | 2018-04-04 12:02 | P.PNIM ---
Subjective Interval history: No new reported seizures. Patient is noninteractive. Some temperature 99.6. Physical Exam Vital signs: Last Vital Signs Temp 99.6 F 04/04/18 08:00 Pulse 125 H 04/04/18 08:00 Resp 18 04/04/18 08:00 BP 139/63 04/04/18 08:00 Pulse Ox 97 04/04/18 08:00 Intake & Output 04/02/18 04/03/18 04/04/18 04/05/18 06:59 06:59 06:59 06:59 Intake Total 4623 / 4623 302 / 302 Output Total 3600 / 3600 Balance 1023 / 1023 302 / 302 Weight 84 kg Narrative: GENERAL: Patient is contracted. Does not appear to be in acute distress. CARDIOVASCULAR: Normal rate and regular rhythm without murmurs, gallops, or rubs. RESPIRATORY: Clear to auscultation bilaterally anteriorly. No accessory muscle use. GASTROINTESTINAL: Abdomen soft, nondistended. PEG tube in place NEURO: Non-interactive, contracted. Urinary Catheter Management Indwelling Temp Sensing Catheter: Cath placed during this visit: yes, but has since been removed by the nurse Insertion date: 04/03/18 Insertion time: 10:25 Removal date: 04/04/18 Removal time: 05:00 Results Labs CBC & Chem 7: 04/03/18 08:35 04/04/18 06:23 Labs: Microbiology 04/03/18 08:35 Blood - Peripheral Aerobic Blood Culture - Preliminary No growth in 1 day 04/03/18 08:35 Blood - Peripheral Anaerobic Blood Culture - Preliminary No growth in 1 day 04/03/18 08:00 Blood - Peripheral Aerobic Blood Culture - Preliminary No growth in 1 day 04/03/18 08:00 Blood - Peripheral Anaerobic Blood Culture - Preliminary No growth in 1 day 04/03/18 15:00 Shunt Fluid Gram Stain - Final 04/03/18 15:00 Shunt Fluid CSF Culture - Preliminary No growth in 24 hours Imaging Imaging: Impressions Shuntogram 04/03/18 10:36 CONCLUSION: 1. CSF obtained and sent for evaluation. 2. Patent ventriculoperitoneal shunt. Assessment and Plan Plan 27-year-old male admitted secondary to breakthrough seizure with fever Possible sepsis secondary to aspiration pneumonia Seems to be stabilizing. Transition to Augmentin and continue Azithromycin. Blood cultures so far negative. CSF studies unremarkable except for elevated protein Continue IVF. Still with tachycardia. Breakthrough seizure risk for APPLICATION ENGINEER shunt infection. CSF studies so far negative for infections Appreciate neurology input. Keppra dose increased to a thousand milligrams twice daily Neurosurgery consulted and recommended CSF studies.APPLICATION ENGINEER shunt okay per the study. Chronic encephalopathy Nonverbal chronically History of traumatic brain injury Supportive Care Benign prostatic hypertrophy Chronic PEG tube Chronic quadriparesis Chronic systolic CHF No exacerbation of these conditions Continue baseline treatments Follow clinically DVT prophylaxis SCDs Continue to monitor closely overnight. If he remains stable and cultures remain negative, can possibly discharge back to nursing facility tomorrow. Progress Note: Quality VTE Deep Vein Thrombosis/Pulmonary Embolism Present on Admission: No
[2018-04-04] MEDS: Azithromycin Inj 500 MG in Sodium Chlor 0.9% Inj 250 ML IV.SIG SCH (12:06)
[2018-04-04] MEDS ORDERED: Acetaminophen 325 MG Tablet PO PRN (14:21)
--- NOTE | 2018-04-04 17:03 | MG ---
cc: Ike Copeland MD EEG RECORD NUMBER: [id number] DESCRIPTION: Eye movement type artifact, EKG artifact occurring through the channels. Background appearance suppressed delta activity. Single lead EKG showing sinus rhythm with poorly formed P waves at times. INTERPRETATION: Severe encephalopathy with low amplitude generalized delta waves. Clinical correlation. MD KNIDRA Morejon/mike , 04:41 PM , 04:44 PM
[2018-04-04] MEDS: Amoxicillin/Clavulanate 875/125 MG Tablet PO SCH (20:51)
[2018-04-05 03:52] LABS: Hematocrit 36.8 % (39.0-51.0); Hemoglobin 12.6 gm/dL (13.0-17.0); Mean Corpuscular HGB Conc 34.4 % (32.0-36.0); Mean Corpuscular Hemoglobin 32.6 pg (27.0-34.0); Mean Corpuscular Volume 94.8 fL (80.0-100.0); Mean Platelet Volume 8.2 fL (7.0-11.0); Platelet Count 251 th/mm3 (150-450); Red Blood Count 3.88 mil/mm3 (4.50-5.90); Red Cell Distribution Width 13.1 % (11.6-17.2)
[2018-04-05 04:18] LABS: Anion Gap 6 meq/L (5-15); Blood Urea Nitrogen 6 mg/dL (7-18); Calcium 8.6 mg/dL (8.5-10.1); Carbon Dioxide 28.2 meq/L (21.0-32.0); Chloride 111 meq/L (98-107); Glomerular Filtration Rate Greater Than 89 mL/min (>89); Glucose,Random 225 mg/dL (74-106); Potassium 3.9 meq/L (3.5-5.1); Sodium 145 meq/L (136-145)
[2018-04-05] MEDS: Sod Chloride 0.9% Inj 1,000 ML IV.CONT SCH ×2 (05:35→14:43)
[2018-04-05] MEDS: Potassium Chloride 25 MEQ Effervescent Tablet G-TUBE SCH (10:29)
[2018-04-05] MEDS: Vancomycin Inj 1,000 MG in Sodium Chlor 0.9% Inj 250 ML IV.SIG SCH (10:29)
[2018-04-05] MEDS: Furosemide 20 MG Tablet G-TUBE SCH (10:29)
[2018-04-05] MEDS: Amoxicillin/Clavulanate 875/125 MG Tablet PO SCH (10:29)
--- NOTE | 2018-04-05 10:50 | P.DS ---
DS: Providers Date of admission: 04/03/18 11:03 Primary care physician: Marcio Archibald MD Consults: 04/03/18 10:36 Consult to Neurosurgery Stat Consulting Provider: Anish Villatoro For STAT consult, spoke directly to:: Shauna Reason for Consultation: possible shunt infection Notified:: Office Date Notified:: 04/03/18 Time Notified:: 10:47 Ordering Provider: JONATAN 04/03/18 12:28 Consult to Neurology Routine Consulting Provider: Marcio Worthington Reason for Consultation: Fevers/Sepsis/Breakthrough Seizure - Hx of CYBER SECURITY ENGINEER shunt related to TBI (nonverbal at baseline) Notified:: Service Spoke with:: KYLE Date Notified:: 04/03/18 Time Notified:: 12:50 Ordering Provider: BHAVNA 04/04/18 11:42 HUB Only Consult Order Routine Consulting Provider: [facility],Hallie Brief History from admission: HPI as documented by the admitting physician: Mr. Pina is a 27-year-old male. He has a past history of traumatic brain injury and has a CYBER SECURITY ENGINEER shunt present. Seizure was witnessed at his care facility. He is also noted to have a fever. At baseline he does have risk for aspiration and in the past has had reflux and aspiration (head of bed to remain chronically elevated at 45 degrees). Aspiration pneumonia is a possible etiology the CYBER SECURITY ENGINEER shunt would be a secondary risky etiology for his symptoms also. Patient is nonverbal at baseline. No further history possible. Patient update on day of discharge: Patient is non verbal and noninteractive. Afebrile. DS: Summary 27-year-old male admitted secondary to breakthrough seizure with fever. Evaluation and treatment course detailed below: Possible sepsis secondary to aspiration pneumonia Chest x-ray showed opacity base. Patient transition to Augmentin and azithromycin. He stabilized and is discharged on Augmentin for an additional 7 days. There is questions about reports of aspiration. It is advisable for the patient to have bed elevated during tube feeding. Blood cultures negative. CSF studies unremarkable except for elevated protein Breakthrough seizure risk for CYBER SECURITY ENGINEER shunt infection. CSF studies so far negative for infections Appreciate neurology input. Keppra dose increased to a thousand milligrams twice daily Neurosurgery consulted and recommended CSF studies. CYBER SECURITY ENGINEER shunt okay per the study. Chronic encephalopathy Nonverbal chronically History of traumatic brain injury Supportive Care Benign prostatic hypertrophy Chronic PEG tube Chronic quadriparesis Chronic systolic CHF No exacerbation of these conditions Continue baseline treatments Follow clinically DVT prophylaxis SCDs The patient has severe neurological deficit from previous brain injury. Neurology discussed prognosis with the patient's mother. She is considering DNR status. I also discussed advance care planning with the patient's mother for greater than 30 minutes. At this time she is agreeable for the patient to return to the halfway facility and she will have further discussions with the patient's siblings regarding DNR. Time Spent with Patient Total time spent providing and/or coordinating discharge services: Quality: VTE Deep Vein Thrombosis/Pulmonary Embolism Present on Admission: No Exam Narrative Exam Narrative: GENERAL: Patient is contracted. Does not appear to be in acute distress. CARDIOVASCULAR: Normal rate and regular rhythm without murmurs, gallops, or rubs. RESPIRATORY: Clear to auscultation bilaterally anteriorly. No accessory muscle use. GASTROINTESTINAL: Abdomen soft, nondistended. PEG tube in place NEURO: Non-interactive, contracted. Results Labs on day of discharge: Labs from last 24 hours 04/05/18 04/05/18 04/04/18 03:41 03:41 11:13 WBC 5.0 RBC 3.88 L Hgb 12.6 L Hct 36.8 L MCV 94.8 MCH 32.6 MCHC 34.4 RDW 13.1 Plt Count 251 MPV 8.2 Sodium 145 Potassium 3.9 Chloride 111 H Carbon Dioxide 28.2 Anion Gap 6 BUN 6 L Creatinine 0.60 Estimated GFR Greater than 89 Random Glucose 225 H Calcium 8.6 Vancomycin Trough 2.7 L Preliminary micro results at discharge 04/03/18 15:00 CSF Culture - Preliminary Shunt Fluid No growth in 48 hours 04/03/18 08:35 Aerobic Blood Culture - Preliminary Blood - Peripheral No growth in 1 day Anaerobic Blood Culture - Preliminary No growth in 1 day 04/03/18 08:00 Aerobic Blood Culture - Preliminary Blood - Peripheral No growth in 1 day Anaerobic Blood Culture - Preliminary No growth in 1 day Impressions ITS Impressions Chest X-Ray 04/03/18 08:33 CONCLUSION: Mild left base parenchymal opacity Head CT 04/03/18 08:33 CONCLUSION: Grossly stable brain appearance . Shunt Study 04/03/18 08:33 CONCLUSION: 1. The most proximal aspect of the tubing is not adequately visualized as it exits the calvarium but otherwise is completely intact throughout its course. There is no abnormal mass effect surrounding the tubing tip in the right mid abdomen. 2. Stable atelectasis versus consolidation in the left lower lobe. Shuntogram 04/03/18 10:36 CONCLUSION: 1. CSF obtained and sent for evaluation. 2. Patent ventriculoperitoneal shunt. Discharge Plan Discharge Disposition Patient Disposition: Discharge to SNF Discharge Condition Condition: Stable Discharge Order Discharge Orders: Discharge Order (Routine); Ordered 04/05/18 Ordered By: Zelalem Moore Physicians Team ED Provider: Sheila Conrad Primary Care Provider: Marcio Archibald Attending Provider: Zelalem Moore Other Providers: Anish Villatoro ; Marcio Worthington ; [facility] Rxs /Orders / Referrals /Forms Prescriptions: New amoxicillin-pot clavulanate [Augmentin] 875-125 mg tablet 1 tab PO Q12H Qty: 14 RF: 0 Continue sennosides-docusate sodium [Senna Plus] 8.6-50 mg Tablet 1 tab G-Tube BID Qty: 60 RF: 0 Lactobacillus acidoph-L.bulgar [Floranex] 100 million cell Granules In Packet 1 gm G-Tube TID Qty: 90 RF: 0 polyvinyl alcohol 1.4 % Drops 1 drp OPHTHALMIC (EYE) TID-QID PRN (Reason: Dry Eyes) RF: 0 potassium chloride 20 mEq/15 mL Liquid 15 meq Feeding Tube DAILY RF: 0 furosemide [Lasix] 20 mg Tablet 20 mg Feeding Tube DAILY RF: 0 glycopyrrolate 1 mg Tablet 1 mg Feeding Tube Q8H RF: 0 ipratropium-albuterol 0.5 mg-3 mg(2.5 mg base)/3 mL Solution For Nebulization 3 ml INHALATION Q4H RF: 0 polyethylene glycol 3350 17 gram Powder In Packet 17 g Feeding Tube HS RF: 0 omeprazole 10 mg Capsule,Delayed Release(Dr/Ec) 10 mg Feeding Tube DAILY RF: 0 tamsulosin [Flomax] 0.4 mg Capsule,Extended Release 24hr 0.4 mg DAILY RF: 0 aspirin 81 mg Tablet,Chewable 81 mg Feeding Tube DAILY RF: 0 levetiracetam 100 mg/mL Solution 500 mg Feeding Tube TID RF: 0 tizanidine 2 mg Capsule 2 mg Feeding Tube Q8H RF: 0 lactose-reduced food with fibr [Jevity 1.5 Cresencio] 0.06 gram-1.5 kcal/mL Liquid RF: 0 calcium carbonate-vitamin D3 [Caltrate 600 + D] 600 mg (1,500 mg)-800 unit Tablet,Chewable 1 tab DAILY RF: 0 Discontinued levofloxacin [Levaquin] 750 mg Tablet 750 mg PO DAILY Qty: 3 RF: 0 ceftriaxone 1 gram Recon Soln 1 g QDRHS RF: 0 Status ED Status: Left Department
[2018-04-05] MEDS: Azithromycin Inj 500 MG in Sodium Chlor 0.9% Inj 250 ML IV.SIG SCH (14:42)
== END 2018-04-05 17:50 ==
LOC: NEPE 08:11 → NEDA 11:03 → N04 15:40
PROVIDERS: ADMIT Family Medicine; ATTEND Family Medicine